=== PATIENT | male | born 1955 | race Caucasian/White ===

== ENCOUNTER 2016-09-07 11:45 | Emergency (ER) | payer MEDICARE ==
[~2016-09-07] VITALS: Wt 109.3 kg
[~2016-09-07 11:45] MED LIST: APRESOLINE25 MG PO; ARANESP0.04 MG/ML IJ; ATARAX,VISTARIL50 MG PO; B-12500 MC1 PO; CALCIUM 600600 M2 PO; CALCIUM ACETAT667 M2 PO; CALCIUM ACETATE PO; CALCIUM600 M2 PO; CARDIZEM120 MG PO; DILTIAZEM 24HR120 MG PO; DILTIAZEM HCL90 MG PO; DRISDOL50000 IU PO; FINASTERIDE5 MG PO; FLOMAX0.4 MG PO; FUROSEMIDE80 MG PO; HUMALOG100 U/ML SC; HUMULIN R100 U/ML; HUMULIN R100 U/ML SC; HYDRALAZINE HYD25 MG PO; HYDRALAZINE10 MG PO; HYDRALAZINE50 MG PO; HYDROCODONE BIT1 T11 PO; KEFLEX500 MG PO; KLOR-CON 1010 MEQ PO; LASIX40 MG PO; LASIX80 MG PO; LEVEMIR FLEX100 U/ML SC; LEVEMIR10 ML SC; LEVEMIR100 U/ML SC; LIDEX 0.05% CRE15 GM T; LIDEX0.05% T; LIQUACEL PO; METOPROLOL SUCC50 M1 PO; NEURONTIN400 MG PO; NOVOLIN R100 U/ML IJ; PENICILLIN VK500 MG PO; POTASSIUM; POTASSIUM GLUCO80 MG PO; PREDNICOT20 MG PO; PROTONIX40 MG PO; TOBRADEX 0.1%-0.5 ML OPH; VELTASSA16.8 GM PO; VIBRAMYCIN100 MG PO; VICODIN 5/500 505 MG PO; VISTARIL25 MG PO; VITAMIN B; VITAMIN B121000 MC2 SL; WARFARIN SODIUM1 MG PO; WATER PILL; XARELTO15 M1 PO; [UNRECOGNIZED DRUG - OTHER] PO; [UNRECOGNIZED DRUG - OTHER] PO; [UNRECOGNIZED DRUG - OTHER] SQ; [UNRECOGNIZED DRUG - REMARK]
[2016-09-07 11:56] VITALS: BP 137/54
[2016-09-07] MEDS ORDERED: ROBITUSSIN DM 105 ML PO (13:04)
== END 2016-09-07 14:03 | disposition home or self-care (01) ==
LOC: ED 11:45
DX: R05 Cough (principal); F17.200 Nicotine dependence, unspecified, uncomplicated; Z90.49 Acquired absence of other specified parts of digestive tract; Z98.890 Other specified postprocedural states; Z79.899 Other long term (current) drug therapy

== ENCOUNTER 2016-10-04 19:06 | Emergency (ER) | payer MEDICARE ==
[~2016-10-04] VITALS: Ht 177.8 cm; Wt 110.2 kg
--- NOTE | ~2016-10-04 | EKG ---
[place], [place] ELECTROCARDIOGRAM REPORT NAME: KATHIE YANEZ UNIT #: [id number] ROOM: DOCTOR: ERWIN RESENDIZ MD BIRTHDATE: [birth year] DOS: 10/04/2016 TIME: 1941 hours. Normal sinus rhythm at 83 beats per minute. The tracing is normal. No previous tracing is available for comparison. ERWIN RESENDIZ MD CM:EKGRPT:ELECTROCARDIOGRAM REPORT [id number] ERWIN RESENDIZ MD
[2016-10-04 19:06] VITALS: BP 126/56
[~2016-10-04 19:06] MED LIST changes: +ROBITUSSIN DM 105 ML PO
[2016-10-04 19:55] LABS: BASO % 0.2 % (0.0-1.0); EOS # 0.1 10*3/uL (0.0-0.4); EOS % 0.7 % (1.0-4.0); HEMATOCRIT 30.3 % (42.0-52.0); HEMOGLOBIN 9.9 g/dl (14.0-18.0); IG # 0.1 10*3/uL (0.0-0.1); LYMPH # 0.8 10*3/uL (1.3-4.4); LYMPH % 4.8 % (27.0-41.0); MEAN CELL VOLUME 96.8 fl (80.0-94.0); MEAN CORPUSCULAR HGB 31.6 pg (27.0-31.0); MEAN CORPUSCULAR HGB CONC 32.7 g/dl (33.0-37.0); MEAN PLATELET VOLUME 8.9 fl (9.6-12.3); MONO % 6.1 % (3.0-9.0); NEUT # 14.3 10*3/uL (2.3-7.9); NEUT % 87.5 % (47.0-73.0); PLATELET COUNT AUTOMATED 247 10*3/uL (130-400); RED BLOOD COUNT 3.13 10*6/uL (4.50-5.90); RED CELL DISTRI WIDTH 16.3 % (0-14.5); WHITE BLOOD COUNT 16.3 10*3/uL (4.8-10.8)
[2016-10-04 20:11] LABS: ALBUMIN 2.9 gm/dl (3.1-4.5); ALKALINE PHOSPHATASE 125 U/L (45-117); BILIRUBIN, TOTAL 0.3 mg/dl (0.2-1.0); BUN 88 mg/dl (7-24); C-REACTIVE PROTEIN 6.47 MG/DL (0-0.3); CARBON DIOXIDE 24 mmol/L (21-32); CHLORIDE 98 mmol/L (98-107); EST GLOM FILT AFRICAN AMERICAN 5 ml/min; GLUCOSE 163 mg/dL (65-99); MAGNESIUM 1.8 mg/dL (1.5-2.1); POTASSIUM 3.8 mmol/L (3.5-5.1); SGOT/AST 13 IU/L (3-35); SGPT/ALT 18 U/L (12-78); SODIUM 136 mmol/L (136-145); TOTAL PROTEIN 7.4 gm/dL (6.4-8.2)
[2016-10-04 20:19] LABS: TROPONIN I < 0.015 ng/ml (<0.045)
[2016-10-04 20:48] LABS: BILIRUBIN NEGATIVE (NEGATIVE); BLOOD 1+ (NEGATIVE); CLARITY CLOUDY (CLEAR); COLOR YELLOW (YELLOW); GLUCOSE 2+ (NEGATIVE); KETONE NEGATIVE (NEGATIVE); LEUKO ESTERASE 3+ (NEGATIVE); NITRITE NEGATIVE (NEGATIVE); PROTEIN 2+ (NEGATIVE); UROBILINOGEN 0.2 E.U./dl (0.2-1.0)
[2016-10-04 20:54] LABS: URINE REFLEX COMMENT YES (NO); WBC TNTC wbc/hpf (0-5)
[2016-10-04] MEDS ORDERED: AMINOPHYLLIN200 MG PO (22:33)
== END 2016-10-05 00:13 | disposition home or self-care (01) ==
LOC: ED 19:06
PROVIDERS: Emergency Medicine Emergency Medical Services
DX: R55 Syncope and collapse (principal); N39.0 Urinary tract infection, site not specified; R31.9 Hematuria, unspecified; I12.0 Hypertensive chronic kidney disease with stage 5 chronic kidney disease or end stage renal disease; N18.6 End stage renal disease; I48.91 Unspecified atrial fibrillation; E11.65 Type 2 diabetes mellitus with hyperglycemia; E66.9 Obesity, unspecified; F17.200 Nicotine dependence, unspecified, uncomplicated; Z68.39 Body mass index [BMI] 39.0-39.9, adult; Z90.49 Acquired absence of other specified parts of digestive tract; Z99.2 Dependence on renal dialysis; Z98.890 Other specified postprocedural states; Z79.899 Other long term (current) drug therapy

== ENCOUNTER 2016-10-07 08:19 | Inpatient (IN) | payer MEDICARE ==
[~2016-10-07] VITALS: Ht 177.8 cm; Wt 114.3 kg
--- NOTE | ~2016-10-07 | PROC NOTE ---
[place], [place] PROCEDURE NOTE NAME: KATHIE YANEZ UNIT #: [id number] ROOM: 530 DOCTOR: ROLAND PEREZ MD BIRTHDATE: [birth year] DOS: 10/12/2016 PREOPERATIVE DIAGNOSIS: Left perirectal abscess. POSTOPERATIVE DIAGNOSIS: Left perirectal abscess. PROCEDURE: Incision and drainage of left perirectal abscess. SURGEON: Dr. Roland Perez. FOOD SERVICE ATTENDANT: MS3. ANESTHESIA: MAC. INDICATIONS: This is a 60-year-old gentleman with a history of left perirectal abscess who was here for the above-mentioned procedure. The procedure and its complications were explained to the patient in detail. Complications that were discussed included but were not limited to, bleeding, infection and damage to underlying vital structures. He agreed to proceed. DESCRIPTION OF PROCEDURE: After identifying the patient, the patient was brought to the operating suite and laid in the supine position. After IV sedation was administered by the anesthesia team. The patient was placed in lithotomy position and a timeout procedure was called. The parts were then painted and draped in the usual sterile fashion. The patient had a small opening in the region of these abscess. With the help of a knife, the opening was incised and the abscess cavity was entered. A specimen of pus was sent for culture and sensitivity. Thereafter, the abscess cavity was irrigated with normal saline and packed with the help of half inch iodoform pack. A dressing was placed. The patient was then placed back in a supine position and brought back to the recovery room in stable fashion. There were no complications. Dr. Roland Perez, the attending surgeon, was present throughout the operating case. Roland Perez MD CM:PROCNOTE:PROCEDURE NOTE [id number] ROLAND PEREZ MD
--- NOTE | ~2016-10-07 | EKG ---
[place], [place] ELECTROCARDIOGRAM REPORT NAME: KATHIE YANEZ UNIT #: [id number] ROOM: [facility] DOCTOR: ERWIN RESENDIZ MD BIRTHDATE: [birth year] DOS: 10/07/2016 TIME: 0914 hours. FINDINGS: 1. Normal sinus rhythm at 97 beats per minute. 2. The tracing is normal. 3. No previous tracing is available for comparison. ERWIN RESENDIZ MD CM:EKGRPT:ELECTROCARDIOGRAM REPORT [id number] 05 ERWIN RESENDIZ MD
--- NOTE | ~2016-10-07 | CON ---
[place], [place] REPORT OF CONSULTATION NAME: KATHIE YANEZ UNIT #: [id number] ROOM: 530 DOCTOR: MICHAEL ALLISON MD BIRTHDATE: [birth year] DOS: 10/08/2016 NEPHROLOGY CONSULTATION REASON FOR CONSULTATION: Management of dialysis. HISTORY OF PRESENT ILLNESS: The patient is a 60-year-old male. He has past medical history of end-stage renal disease. He undergoes peritoneal dialysis. He has a history of diabetes and hypertension as well as what seems to be BPH. The patient presented to the hospital due to some vague abdominal discomfort and left sided rib pain. Apparently, he was felt to have a UTI and had noted urinary retention, a Rossi catheter was placed. He has had what seems like several urine cultures done over the past few days. He did have a CT scan, which revealed changes of his liver concerning for cirrhosis with some mild ascites and distended bladder with urinary retention. As noted a Rossi catheter had been placed and he was admitted to the hospital. He does feel a little bit better, but still is having pain. Apparently, this pain has started about a week ago. He has also had some issues with constipation. The patient states to me his fluid has been clear during his peritoneal dialysis. He states to me that he has had no issues doing that and actually brought his own supplies and was doing this on this own. It seems he undergoes 8 hours of cycle, but the fill volumes and settings are not quite clear. He was not able to describe them very well to me. He did also have what seems to be a mid day exchange. Again, he states that he has had no issues with peritoneal dialysis. He has a Rossi in place and has adequate urine. He currently denies shortness of breath, fevers, chills or night sweats. ALLERGIES: No known drug allergies. HOME MEDICATIONS: Included Eliquis, Aranesp, Cardizem, finasteride, Lasix, gabapentin, hydralazine, insulin, metoprolol, Protonix, Flomax, Veltassa. PAST MEDICAL HISTORY: 1. End-stage renal disease, on peritoneal dialysis. 2. PD catheter placement. 3. Benign prostatic hypertrophy. 4. Cirrhosis. 5. Back pain. 6. Hypertension. 7. Diabetes mellitus. 8. Obesity. 9. History of AV fistula. 10. Decompression of median nerve. 11. Foot surgery x 3. FAMILY HISTORY: Negative for chronic kidney disease, otherwise noncontributory. SOCIAL HISTORY: No current tobacco, alcohol or illicit drugs. REVIEW OF SYSTEMS: As per HPI, otherwise a 10-point review of systems was [place], [place] REPORT OF CONSULTATION NAME: KATHIE YANEZ UNIT #: [id number] ROOM: 530 DOCTOR: MICHAEL ALLISON MD BIRTHDATE: [birth year] reviewed and was negative. PHYSICAL EXAMINATION: VITAL SIGNS: Temperature 97.9, pulse 75, respiratory rate 18, blood pressure 118/52. GENERAL: He is alert, awake, oriented x 3, in no major distress. HEENT: Shows no JVD. Sclerae are anicteric. Mucous membranes are moist. Pharynx is clear. NECK: Supple. Trachea is midline. There is no neck lymphadenopathy. There is no thyromegaly. LUNGS: Fairly clear. No crackles, wheezing or rales. There is no tactile fremitus. He is not using accessory muscles of respiration. HEART: Normal S1, S2. No rub, thrill or gallop. ABDOMEN: Mildly distended. He did not have appreciable organomegaly, did not have appreciable rebound or tenderness particularly in the right and middle of his abdomen. When I pressed near his left ribcage and left abdomen, he had some mild tenderness noted. EXTREMITIES: Showed no edema. There are no clubbing or cyanosis. Distal pulses are 2+. SKIN: Showed no overt rash. There is no petechiae or purpura. Skin temperature was warm. NEUROLOGIC: He is awake, alert and following commands. His cranial nerves were intact. LABORATORY DATA: Reviewed. Hemoglobin 10.2, white count of 12.3, platelets of 287. BUN 65, creatinine 11, sodium 140, potassium 3.5, CO2 of 29, calcium 9.8, phosphorus 3.4, magnesium 2.4. IMPRESSION: 1. End-stage renal disease, on peritoneal dialysis. 2. Urinary retention with a questionable urinary tract infection. 3. Diabetes mellitus. 4. Benign prostatic hypertrophy. 5. Constipation. 6. Leukocytosis. PLAN: 1. The patient is to continue his normal peritoneal dialysis prescription. He has his own supply and his own machine and exchanges are being done mid day by himself and his family. 2. Dose medications for peritoneal dialysis. 3. Would discontinue the Rossi catheter and try voiding trials. We will consider a Urology consult. 4. Replace electrolytes as needed. 5. I highly doubt the patient has peritonitis. I will attempt to obtain fluid from his peritoneum and send for culture to be on the safe side, but this seems highly unlikely peritonitis. Thank you for this consultation. We will follow with you. [place], [place] REPORT OF CONSULTATION NAME: RENATAKATHIE Julio UNIT #: [id number] ROOM: [facility] DOCTOR: ESTEFANY SAHA,MICHAEL Quintero BIRTHDATE: [birth year] MICHAEL ALLISON MD CM:CONSTR:REPORT OF CONSULTATION 1524 10/09/16 0657 interface
--- NOTE | ~2016-10-07 | PR ---
[place], [place] PROGRESS NOTE NAME: KATHIE YANEZ UNIT #: [id number] ROOM: 530 DOCTOR: MICHAEL ALLISON MD BIRTHDATE: [birth year] DOS: 10/09/2016 NEPHROLOGY FOLLOWUP NOTE SUBJECTIVE: The patient was seen and examined. He is awake and alert, seems to be a little bit better today. He is still complaining of left-sided rib pain. He denies abdominal pain. He states his peritoneal fluid is clear. He states PD is going well. PHYSICAL EXAMINATION: VITAL SIGNS: Temperature 97.9, pulse 78, respiratory rate 20, blood pressure 124/46. HEENT: Shows no JVD. LUNGS: Fairly clear. HEART: Normal S1, S2. No rub, thrill or gallop. ABDOMEN: Soft and nontender. There is no organomegaly. EXTREMITIES: Showed no edema. LABORATORY DATA: Hemoglobin 10.3, white count of 12.4, platelet count of 275. Sodium 136, potassium 4.2, BUN 57, creatinine 10.7, calcium of 10.1. IMPRESSION: 1. End-stage renal disease on peritoneal dialysis. The patient should continue his normal outpatient prescription which he is performing with his own supply as well in the hospital. Dose medications for peritoneal dialysis. 2. Urinary retention with a questionable urinary tract infection. The patient should have his Rossi catheter removed and voiding trial should be attempted, consider Urology consultation. 3. Leukocytosis. This is stable. Follow cultures. Cultures from his PD fluid was ordered. This seems extremely unlikely to be a peritonitis. 4. Ongoing left-sided rib pain. Continue supportive care. 5. Constipation with rectal pain. I was confronted in regards to the CT scan with IV contrast by a number of personnel today. I stated that the patient does still make urine and has some residual renal function and this would be a risk to cause potential harm to that. I also explained this to the patient and his , stated ultimately that if this is the test that was needed that he would have to understand that situation. It seems for now that has been elected to avoid IV contrast at this time. [place], [place] PROGRESS NOTE NAME: KATHIE YANEZ UNIT #: [id number] ROOM: 530 DOCTOR: MICHAEL ALLISON MD: [birth year] MICHAEL ALLISON MD CM:PNTRANS [id number] MICHAEL ALLISON MD 10/10/16 0409 interface
[~2016-10-07 08:19] MED LIST changes: +AMINOPHYLLIN200 MG PO
[2016-10-07 08:27] VITALS: BP 138/48
[2016-10-07 09:11] LABS: BASO % 0.3 % (0.0-1.0); EOS # 0.3 10*3/uL (0.0-0.4); EOS % 2.2 % (1.0-4.0); HEMATOCRIT 30.3 % (42.0-52.0); HEMOGLOBIN 9.6 g/dl (14.0-18.0); IG # 0.1 10*3/uL (0.0-0.1); LYMPH # 0.8 10*3/uL (1.3-4.4); LYMPH % 5.9 % (27.0-41.0); MEAN CELL VOLUME 98.7 fl (80.0-94.0); MEAN CORPUSCULAR HGB 31.3 pg (27.0-31.0); MEAN CORPUSCULAR HGB CONC 31.7 g/dl (33.0-37.0); MEAN PLATELET VOLUME 8.8 fl (9.6-12.3); MONO % 7.2 % (3.0-9.0); NEUT # 11.6 10*3/uL (2.3-7.9); NEUT % 83.8 % (47.0-73.0); PLATELET COUNT AUTOMATED 244 10*3/uL (130-400); RED BLOOD COUNT 3.07 10*6/uL (4.50-5.90); RED CELL DISTRI WIDTH 16.5 % (0-14.5); WHITE BLOOD COUNT 13.8 10*3/uL (4.8-10.8)
[2016-10-07 09:22] LABS: INTERNATIONAL NORM RATIO 1.2 (2.0-3.5); PROTHROMBIN TIME 12.6 SECONDS (9.0-12.4)
[2016-10-07 09:26] LABS: ALBUMIN 2.7 gm/dl (3.1-4.5); ALKALINE PHOSPHATASE 107 U/L (45-117); BILIRUBIN, TOTAL 0.3 mg/dl (0.2-1.0); BUN 70 mg/dl (7-24); CARBON DIOXIDE 28 mmol/L (21-32); CHLORIDE 98 mmol/L (98-107); CKMB 1.5 ng/ml (0.5-3.6); CPK 29 U/L (39-308); EST GLOM FILT AFRICAN AMERICAN 6 ml/min; GLUCOSE 110 mg/dL (65-99); MAGNESIUM 2.1 mg/dL (1.5-2.1); POTASSIUM 3.3 mmol/L (3.5-5.1); SGOT/AST 12 IU/L (3-35); SGPT/ALT 18 U/L (12-78); SODIUM 139 mmol/L (136-145); TOTAL PROTEIN 7.3 gm/dL (6.4-8.2)
[2016-10-07 09:35] LABS: TROPONIN I < 0.015 ng/ml (<0.045)
[2016-10-07 10:37] VITALS: BP 147/74
[2016-10-07 11:41] VITALS: BP 134/70
[2016-10-07 11:51] LABS: BILIRUBIN NEGATIVE (NEGATIVE); BLOOD 1+ (NEGATIVE); CLARITY SL CLOUDY (CLEAR); COLOR YELLOW (YELLOW); GLUCOSE 2+ (NEGATIVE); KETONE NEGATIVE (NEGATIVE); LEUKO ESTERASE 3+ (NEGATIVE); NITRITE NEGATIVE (NEGATIVE); PH 6.5 (5.0-9.0); PROTEIN 2+ (NEGATIVE); UROBILINOGEN 0.2 E.U./dl (0.2-1.0)
[2016-10-07 12:21] LABS: BACTERIA 2+; URINE REFLEX COMMENT YES (NO); WBC TNTC wbc/hpf (0-5)
[2016-10-07 14:42] VITALS: BP 135/79
[2016-10-07] MEDS ORDERED: LOPRESSOR50 M1 PO (14:47)
[2016-10-07] MEDS ORDERED: Lasix80 MG PO (14:57)
[2016-10-07] MEDS ORDERED: CARDIZEM CD360 MG PO (14:58)
[2016-10-07] MEDS ORDERED: HUMALOG100 U/ML SC ×3 (15:01→15:02)
[2016-10-07] MEDS ORDERED: ELIQUIS5 M1 PO (15:16)
[2016-10-07] MEDS ORDERED: AMINOPHYLLIN200 MG PO (15:21)
[2016-10-07 15:40] VITALS: BP 158/74
[2016-10-07 16:00] VITALS: BP 158/74
[2016-10-08 06:48] LABS: BASO # 0.1 10*3/uL (0.0-0.1); BASO % 0.4 % (0.0-1.0); EOS # 0.5 10*3/uL (0.0-0.4); EOS % 3.6 % (1.0-4.0); HEMATOCRIT 31.9 % (42.0-52.0); HEMOGLOBIN 10.2 g/dl (14.0-18.0); IG # 0.1 10*3/uL (0.0-0.1); LYMPH # 0.8 10*3/uL (1.3-4.4); LYMPH % 6.3 % (27.0-41.0); MEAN CELL VOLUME 99.7 fl (80.0-94.0); MEAN CORPUSCULAR HGB 31.9 pg (27.0-31.0); MEAN PLATELET VOLUME 9.4 fl (9.6-12.3); MONO % 7.9 % (3.0-9.0); NEUT % 81.4 % (47.0-73.0); PLATELET COUNT AUTOMATED 287 10*3/uL (130-400); RED CELL DISTRI WIDTH 16.2 % (0-14.5); WHITE BLOOD COUNT 12.3 10*3/uL (4.8-10.8)
[2016-10-08 07:34] LABS: MAGNESIUM 2.4 mg/dL (1.5-2.1); PHOSPHOROUS 3.4 mg/dL (2.5-4.9); POTASSIUM 3.5 mmol/L (3.5-5.1)
[2016-10-08 07:44] LABS: THYROID STIM HORMONE (HS) 3.16 uIU/ml (0.358-4.75)
[2016-10-08 07:57] LABS: HEMOGLOBIN A1c 7.3 % (4.8-5.6)
[2016-10-08 08:00] VITALS: BP 102/50
[2016-10-08 08:46] LABS: FOLIC ACID 9.99 ng/mL (>5.38)
[2016-10-08 12:00] VITALS: BP 118/52
[2016-10-08 20:00] VITALS: BP 152/59
[2016-10-09] VITALS: BP 137/51; BP 153/63
[2016-10-09 08:00] VITALS: BP 100/48
[2016-10-09 08:01] LABS: BASO # 0.1 10*3/uL (0.0-0.1); BASO % 0.5 % (0.0-1.0); EOS # 0.6 10*3/uL (0.0-0.4); EOS % 5.1 % (1.0-4.0); HEMATOCRIT 32.8 % (42.0-52.0); HEMOGLOBIN 10.3 g/dl (14.0-18.0); IG # 0.1 10*3/uL (0.0-0.1); LYMPH # 0.9 10*3/uL (1.3-4.4); LYMPH % 7.5 % (27.0-41.0); MEAN CELL VOLUME 99.1 fl (80.0-94.0); MEAN CORPUSCULAR HGB 31.1 pg (27.0-31.0); MEAN CORPUSCULAR HGB CONC 31.4 g/dl (33.0-37.0); MEAN PLATELET VOLUME 9.1 fl (9.6-12.3); MONO % 7.7 % (3.0-9.0); NEUT # 9.8 10*3/uL (2.3-7.9); NEUT % 78.7 % (47.0-73.0); PLATELET COUNT AUTOMATED 275 10*3/uL (130-400); RED BLOOD COUNT 3.31 10*6/uL (4.50-5.90); RED CELL DISTRI WIDTH 16.2 % (0-14.5); WHITE BLOOD COUNT 12.4 10*3/uL (4.8-10.8)
[2016-10-09 08:14] LABS: POTASSIUM 4.2 mmol/L (3.5-5.1)
[2016-10-09 12:00] VITALS: BP 124/46
[2016-10-09 16:00] VITALS: BP 104/85
[2016-10-09 20:00] VITALS: BP 115/50
[2016-10-10] VITALS: BP 133/59
[2016-10-10 04:00] VITALS: BP 119/44
[2016-10-10 06:28] LABS: BASO # 0.1 10*3/uL (0.0-0.1); BASO % 0.6 % (0.0-1.0); EOS # 0.6 10*3/uL (0.0-0.4); EOS % 5.6 % (1.0-4.0); HEMATOCRIT 30.8 % (42.0-52.0); HEMOGLOBIN 9.8 g/dl (14.0-18.0); IG # 0.1 10*3/uL (0.0-0.1); LYMPH # 0.7 10*3/uL (1.3-4.4); LYMPH % 7.2 % (27.0-41.0); MEAN CORPUSCULAR HGB 31.5 pg (27.0-31.0); MEAN CORPUSCULAR HGB CONC 31.8 g/dl (33.0-37.0); MEAN PLATELET VOLUME 9.6 fl (9.6-12.3); MONO # 0.9 10*3/uL (0.1-1.0); MONO % 8.7 % (3.0-9.0); NEUT # 7.8 10*3/uL (2.3-7.9); NEUT % 77.2 % (47.0-73.0); PLATELET COUNT AUTOMATED 265 10*3/uL (130-400); RED BLOOD COUNT 3.11 10*6/uL (4.50-5.90); RED CELL DISTRI WIDTH 15.9 % (0-14.5); WHITE BLOOD COUNT 10.1 10*3/uL (4.8-10.8)
[2016-10-10 06:50] LABS: POTASSIUM 3.7 mmol/L (3.5-5.1)
[2016-10-10 08:00] VITALS: BP 122/58
[2016-10-10 12:00] VITALS: BP 110/46
[2016-10-10 16:00] VITALS: BP 124/36
[2016-10-10 20:00] VITALS: BP 148/55
[2016-10-11] VITALS: BP 122/49
[2016-10-11 06:40] LABS: BASO # 0.1 10*3/uL (0.0-0.1); BASO % 0.6 % (0.0-1.0); EOS # 0.5 10*3/uL (0.0-0.4); EOS % 4.6 % (1.0-4.0); HEMATOCRIT 30.1 % (42.0-52.0); HEMOGLOBIN 9.7 g/dl (14.0-18.0); IG # 0.1 10*3/uL (0.0-0.1); LYMPH # 0.8 10*3/uL (1.3-4.4); LYMPH % 7.5 % (27.0-41.0); MEAN CORPUSCULAR HGB 31.6 pg (27.0-31.0); MEAN CORPUSCULAR HGB CONC 32.2 g/dl (33.0-37.0); MEAN PLATELET VOLUME 9.5 fl (9.6-12.3); MONO # 0.8 10*3/uL (0.1-1.0); MONO % 7.9 % (3.0-9.0); NEUT # 8.3 10*3/uL (2.3-7.9); NEUT % 78.5 % (47.0-73.0); PLATELET COUNT AUTOMATED 262 10*3/uL (130-400); RED BLOOD COUNT 3.07 10*6/uL (4.50-5.90); RED CELL DISTRI WIDTH 15.9 % (0-14.5); WHITE BLOOD COUNT 10.6 10*3/uL (4.8-10.8)
[2016-10-11 07:52] LABS: POTASSIUM 3.4 mmol/L (3.5-5.1)
[2016-10-11 08:00] VITALS: BP 132/60
[2016-10-11 12:00] VITALS: BP 112/40
[2016-10-11 16:00] VITALS: BP 135/58
[2016-10-11 20:00] VITALS: BP 120/50
[2016-10-12] VITALS (10 sets, daily range): BP systolic 116–156; BP diastolic 44–112
[2016-10-12 06:15] LABS: BASO # 0.1 10*3/uL (0.0-0.1); BASO % 0.7 % (0.0-1.0); EOS # 0.5 10*3/uL (0.0-0.4); EOS % 5.3 % (1.0-4.0); HEMATOCRIT 30.3 % (42.0-52.0); HEMOGLOBIN 9.7 g/dl (14.0-18.0); IG # 0.1 10*3/uL (0.0-0.1); LYMPH # 0.9 10*3/uL (1.3-4.4); LYMPH % 10.8 % (27.0-41.0); MEAN CELL VOLUME 98.1 fl (80.0-94.0); MEAN CORPUSCULAR HGB 31.4 pg (27.0-31.0); MEAN PLATELET VOLUME 8.9 fl (9.6-12.3); MONO # 0.9 10*3/uL (0.1-1.0); MONO % 10.9 % (3.0-9.0); NEUT # 6.1 10*3/uL (2.3-7.9); PLATELET COUNT AUTOMATED 271 10*3/uL (130-400); RED BLOOD COUNT 3.09 10*6/uL (4.50-5.90); RED CELL DISTRI WIDTH 15.6 % (0-14.5); WHITE BLOOD COUNT 8.5 10*3/uL (4.8-10.8)
[2016-10-12 06:39] LABS: ALBUMIN 2.5 gm/dl (3.1-4.5); BILIRUBIN, TOTAL 0.2 mg/dl (0.2-1.0)
[2016-10-13 00:16] VITALS: BP 136/54
[2016-10-13 06:41] LABS: BASO # 0.1 10*3/uL (0.0-0.1); BASO % 0.6 % (0.0-1.0); EOS # 0.3 10*3/uL (0.0-0.4); EOS % 4.3 % (1.0-4.0); HEMATOCRIT 29.7 % (42.0-52.0); HEMOGLOBIN 9.5 g/dl (14.0-18.0); IG # 0.1 10*3/uL (0.0-0.1); LYMPH % 12.5 % (27.0-41.0); MEAN CORPUSCULAR HGB 31.7 pg (27.0-31.0); MEAN PLATELET VOLUME 9.5 fl (9.6-12.3); MONO # 0.9 10*3/uL (0.1-1.0); NEUT # 5.5 10*3/uL (2.3-7.9); NEUT % 70.3 % (47.0-73.0); PLATELET COUNT AUTOMATED 270 10*3/uL (130-400); RED CELL DISTRI WIDTH 15.9 % (0-14.5); WHITE BLOOD COUNT 7.9 10*3/uL (4.8-10.8)
[2016-10-13 06:57] LABS: ALBUMIN 2.3 gm/dl (3.1-4.5); BILIRUBIN, TOTAL 0.2 mg/dl (0.2-1.0); POTASSIUM 4.1 mmol/L (3.5-5.1); TOTAL PROTEIN 6.9 gm/dL (6.4-8.2)
[2016-10-13 08:00] VITALS: BP 168/98
[2016-10-13 12:00] VITALS: BP 146/88
[2016-10-13 16:00] VITALS: BP 137/59
[2016-10-13 20:00] VITALS: BP 120/72
[2016-10-13 21:53] LABS: POTASSIUM 4.8 mmol/L (3.5-5.1)
[2016-10-14 00:46] VITALS: BP 116/72
[2016-10-14 07:11] LABS: ALBUMIN 2.4 gm/dl (3.1-4.5); BILIRUBIN, TOTAL 0.3 mg/dl (0.2-1.0); TOTAL PROTEIN 6.9 gm/dL (6.4-8.2)
[2016-10-14 07:14] LABS: POTASSIUM 3.8 mmol/L (3.5-5.1)
[2016-10-14 08:00] VITALS: BP 125/52
[2016-10-14 12:00] VITALS: BP 134/62
[2016-10-14] MEDS ORDERED: REMEDY WITH OLI1 PAS T (12:29)
[2016-10-14] MEDS ORDERED: LEVEMIR10 ML SC (12:29)
[2016-10-14] MEDS ORDERED: BACTRIM 400 MG-1 TAB PO ×2 (12:47→12:50)
[2016-10-14] MEDS ORDERED: KEFLEX500 M1 PO ×2 (12:47→12:50)
== END 2016-10-14 13:53 | disposition home or self-care (01) | DRG 853 ==
LOC: ED 08:19 → 5E 12:38 → EDHOLD 12:38 → 5E 14:02
PROVIDERS: Emergency Medicine; Hospitalist; Internal Medicine; Internal Medicine Hospice and Palliative Medicine
PROC: 3E1M39Z Irrigation of Peritoneal Cavity using Dialysate, Percutaneous Approach (ICD-10-PCS; principal; 2016-10-12)
PROC: 0D9P0ZZ Drainage of Rectum, Open Approach (ICD-10-PCS; 2016-10-12)
DX: A41.9 Sepsis, unspecified organism (principal); N18.6 End stage renal disease; E43 Unspecified severe protein-calorie malnutrition; I12.0 Hypertensive chronic kidney disease with stage 5 chronic kidney disease or end stage renal disease; N39.0 Urinary tract infection, site not specified; L03.317 Cellulitis of buttock; K61.1 Rectal abscess; Z99.2 Dependence on renal dialysis; E11.22 Type 2 diabetes mellitus with diabetic chronic kidney disease; E11.65 Type 2 diabetes mellitus with hyperglycemia; N40.0 Benign prostatic hyperplasia without lower urinary tract symptoms; K74.60 Unspecified cirrhosis of liver; E66.9 Obesity, unspecified; Z68.35 Body mass index [BMI] 35.0-35.9, adult; K59.00 Constipation, unspecified; D53.9 Nutritional anemia, unspecified; E87.6 Hypokalemia; R79.82 Elevated C-reactive protein (CRP); M47.9 Spondylosis, unspecified; M43.16 Spondylolisthesis, lumbar region; Z80.1 Family history of malignant neoplasm of trachea, bronchus and lung

== ENCOUNTER → 2016-11-01 | Outpatient (CLI) | payer MEDICARE ==
[~2016-11-01] MED LIST changes: +BACTRIM 400 MG-1 TAB PO; +CARDIZEM CD360 MG PO; +ELIQUIS5 M1 PO; +KEFLEX500 M1 PO; +LOPRESSOR50 M1 PO; +Lasix80 MG PO; +REMEDY WITH OLI1 PAS T
[2016-11-01 09:09] LABS: HEMOGLOBIN A1c 7.9 % (4.8-5.6)
[2016-11-01 09:18] LABS: ALBUMIN 2.8 gm/dl (3.1-4.5); POTASSIUM 4.3 mmol/L (3.5-5.1)
[2016-11-01 09:23] LABS: THYROID STIM HORMONE (HS) 4.14 uIU/ml (0.358-4.75)
== END | disposition home or self-care (01) ==
LOC: LAB 08:32
PROVIDERS: Internal Medicine
DX: Z12.5 Encounter for screening for malignant neoplasm of prostate (principal); E55.9 Vitamin D deficiency, unspecified; I10 Essential (primary) hypertension; E10.65 Type 1 diabetes mellitus with hyperglycemia; N40.0 Benign prostatic hyperplasia without lower urinary tract symptoms; E04.9 Nontoxic goiter, unspecified; E78.5 Hyperlipidemia, unspecified

== ENCOUNTER 2016-12-15 13:09 | Inpatient (IN) | payer MEDICARE ==
[~2016-12-15] VITALS: Ht 177.8 cm; Wt 113.7 kg
[2016-12-15 13:42] VITALS: BP 117/39
[2016-12-15] MEDS ORDERED: RENVELA800 MG PO (13:46)
[2016-12-15 14:01] LABS: BILIRUBIN NEGATIVE (NEGATIVE); BLOOD 2+ (NEGATIVE); CLARITY SL CLOUDY (CLEAR); COLOR YELLOW (YELLOW); GLUCOSE 2+ (NEGATIVE); KETONE NEGATIVE (NEGATIVE); LEUKO ESTERASE NEGATIVE (NEGATIVE); NITRITE NEGATIVE (NEGATIVE); PH 6.5 (5.0-9.0); PROTEIN 2+ (NEGATIVE); SPECIFIC GRAVITY <= 1.005 (1.005-1.030); UROBILINOGEN 0.2 E.U./dl (0.2-1.0)
[2016-12-15 14:33] LABS: BACTERIA TRACE; RBC 21-30 rbc/hpf (0-2); URINE REFLEX COMMENT YES (NO)
[2016-12-15 14:53] LABS: BASO % 0.2 % (0.0-1.0); HEMATOCRIT 29.5 % (42.0-52.0); HEMOGLOBIN 9.2 g/dl (14.0-18.0); IG # 0.1 10*3/uL (0.0-0.1); LYMPH # 0.4 10*3/uL (1.3-4.4); LYMPH % 3.3 % (27.0-41.0); MEAN CORPUSCULAR HGB 31.2 pg (27.0-31.0); MEAN CORPUSCULAR HGB CONC 31.2 g/dl (33.0-37.0); MEAN PLATELET VOLUME 9.3 fl (9.6-12.3); MONO # 0.8 10*3/uL (0.1-1.0); NEUT # 11.6 10*3/uL (2.3-7.9); NEUT % 89.9 % (47.0-73.0); PLATELET COUNT AUTOMATED 189 10*3/uL (130-400); RED BLOOD COUNT 2.95 10*6/uL (4.50-5.90); RED CELL DISTRI WIDTH 16.7 % (0-14.5); WHITE BLOOD COUNT 12.9 10*3/uL (4.8-10.8)
[2016-12-15 15:10] LABS: ALBUMIN 2.9 gm/dl (3.1-4.5); ALKALINE PHOSPHATASE 109 U/L (45-117); BILIRUBIN, TOTAL 0.4 mg/dl (0.2-1.0); BUN 73 mg/dl (7-24); CARBON DIOXIDE 25 mmol/L (21-32); CHLORIDE 96 mmol/L (98-107); EST GLOM FILT AFRICAN AMERICAN 5 ml/min; GLUCOSE 132 mg/dL (65-99); POTASSIUM 4.7 mmol/L (3.5-5.1); SGOT/AST 10 IU/L (3-35); SGPT/ALT 16 U/L (12-78); SODIUM 136 mmol/L (136-145); TOTAL PROTEIN 7.4 gm/dL (6.4-8.2)
[2016-12-15 15:12] LABS: TROPONIN I < 0.015 ng/ml (<0.045)
[2016-12-15 16:50] LABS: LA>2 REFLEX 2 HR DRAW NOW
[2016-12-15 17:00] VITALS: BP 142/80
[2016-12-15 18:00] VITALS: BP 138/78
[2016-12-15 19:00] VITALS: BP 140/78
[2016-12-15 20:00] VITALS: BP 145/58
[2016-12-15 20:10] VITALS: BP 145/58
[2016-12-16] VITALS: BP 133/54
[2016-12-16 06:59] LABS: BASO % 0.3 % (0.0-1.0); EOS % 0.1 % (1.0-4.0); HEMATOCRIT 27.2 % (42.0-52.0); HEMOGLOBIN 8.5 g/dl (14.0-18.0); IG # 0.1 10*3/uL (0.0-0.1); LYMPH # 0.5 10*3/uL (1.3-4.4); LYMPH % 4.6 % (27.0-41.0); MEAN CELL VOLUME 99.6 fl (80.0-94.0); MEAN CORPUSCULAR HGB 31.1 pg (27.0-31.0); MEAN CORPUSCULAR HGB CONC 31.3 g/dl (33.0-37.0); MEAN PLATELET VOLUME 9.8 fl (9.6-12.3); MONO # 0.8 10*3/uL (0.1-1.0); MONO % 7.1 % (3.0-9.0); NEUT # 9.2 10*3/uL (2.3-7.9); NEUT % 87.4 % (47.0-73.0); PLATELET COUNT AUTOMATED 173 10*3/uL (130-400); RED BLOOD COUNT 2.73 10*6/uL (4.50-5.90); RED CELL DISTRI WIDTH 16.5 % (0-14.5); WHITE BLOOD COUNT 10.5 10*3/uL (4.8-10.8)
[2016-12-16 07:25] LABS: MAGNESIUM 1.7 mg/dL (1.5-2.1); PHOSPHOROUS 4.9 mg/dL (2.5-4.9); POTASSIUM 4.6 mmol/L (3.5-5.1)
[2016-12-16 07:26] LABS: INTERNATIONAL NORM RATIO 1.2 (2.0-3.5); PROTHROMBIN TIME 13.4 SECONDS (9.0-12.4)
[2016-12-16 07:30] LABS: HEMOGLOBIN A1c 6.3 % (4.8-5.6)
[2016-12-16 08:00] VITALS: BP 141/89
[2016-12-16 08:04] LABS: FOLIC ACID 13.77 ng/mL (>5.38)
[2016-12-16 12:00] VITALS: BP 112/45
== END 2016-12-16 14:00 | disposition home or self-care (01) | DRG 871 ==
LOC: ED 13:09 → 5E 17:34 → EDHOLD 17:34 → 5E 18:28
PROVIDERS: Emergency Medicine; Internal Medicine; Nurse Practitioner Family
DX: A41.9 Sepsis, unspecified organism (principal); E43 Unspecified severe protein-calorie malnutrition; E87.2 Acidosis; I12.0 Hypertensive chronic kidney disease with stage 5 chronic kidney disease or end stage renal disease; I48.0 Paroxysmal atrial fibrillation; N18.6 End stage renal disease; E11.22 Type 2 diabetes mellitus with diabetic chronic kidney disease; N40.0 Benign prostatic hyperplasia without lower urinary tract symptoms; K52.9 Noninfective gastroenteritis and colitis, unspecified; D53.9 Nutritional anemia, unspecified; M47.896 Other spondylosis, lumbar region; Z80.1 Family history of malignant neoplasm of trachea, bronchus and lung; Z82.49 Family history of ischemic heart disease and other diseases of the circulatory system; Z79.1 Long term (current) use of non-steroidal anti-inflammatories (NSAID); Z99.2 Dependence on renal dialysis; Z79.4 Long term (current) use of insulin; Z68.35 Body mass index [BMI] 35.0-35.9, adult; Z79.899 Other long term (current) drug therapy

== ENCOUNTER → 2016-12-23 | Day surgery (SDC) | payer MEDICARE ==
[~2016-12-23] VITALS: Ht 177.8 cm; Wt 115.7 kg
[~2016-12-23] MED LIST changes: +RENVELA800 MG PO
--- NOTE | ~2016-12-23 | O ---
[place], [place] OPERATIVE NOTE NAME: KATHIE YANEZ UNIT #: [id number] ROOM: DOCTOR: ELVIN DANGELO MD BIRTHDATE: [birth year] DOS: PROCEDURE #1: HISTORY OF PRESENT ILLNESS: A 61-year-old patient who presented with chief complaint of guaiac positivity. PAST MEDICAL HISTORY: Chronic renal failure, on peritoneal dialysis, hypertension, obesity. PAST SURGICAL HISTORY: Appendectomy, vasectomy, right toe amputation, carpal tunnel. FAMILY HISTORY: Noncontributory. ALLERGIES: To no known medication. SOCIAL HISTORY: Nonsmoker and social alcohol consumer. PROCEDURE: Today's procedure as part of investigation is panendoscopy and colonoscopy. PREMEDICATION: Versed and Diprivan. SCOPE: Olympus forward-viewing gastroscope Q10 video. REPORT: After putting the patient in the left lateral position and after application of lubricant to the scope, the scope was introduced. Thereafter, under direct visualization, I advanced through the length of esophagus without difficulty. A 2 cm hiatal hernia was then appreciated. Gastric pouch was entered. Gastritis was seen. Antrum was biopsied. Duodenal bulb, second and third part are within normal limit. The patient was gradually extubated and tolerated the procedure well. IMPRESSION: Small hiatal hernia, 2 cm, gastritis. PLAN AND DISCUSSION: The patient on multiple medications, among which has been Protonix. We are going to continue with Protonix as well as the patient has been on Eliquis and other medications reviewed. We will proceed with all medication except Eliquis for the next 2 days. PROCEDURE #2: PREOPERATIVE INDICATIONS: The patient has presented with anemia, guaiac positivity renal failure, peritoneal dialysis dependency. PROCEDURE: Today's procedure as part of investigation is colonoscopy. PREMEDICATION: Versed and Diprivan. [place], [place] OPERATIVE NOTE NAME: KATHIE YANEZ UNIT #: [id number] ROOM: DOCTOR: ELVIN DANGELO MD BIRTHDATE: [birth year] SCOPE: Olympus folding colonoscope 10L video. REPORT: After putting the patient in the left lateral position and after application of lubricant to rectal pouch and digital examination, scope was introduced. Thereafter, under direct visualization, I advanced through the length of colon without difficulty. Base of cecum contained solid stool, difficult to assess; however, three polypoid lesion relatively large at hepatic flexure with snare was polypectomized, than others polypoid lesion at the sigmoid colon with snare with polypectomy and samples recovered. The patient tolerated the procedure well. IMPRESSION: Multiple colonic polyp, status post snare polypectomy x 4 at the hepatic flexure and sigmoid colon. PLAN AND DISCUSSION: The patient had some retained stool in the cecum area, it is difficult to assess. This was solid particles. If remains concern, we are going to do completion barium in future to definitively define the base of cecum pathology. The patient on peritoneal dialysis is going to continue, Eliquis is not going to be started till next 3 days to prevent bleeding from polypectomy site and clinical reassessment as outpatient. ELVIN DANGELO MD CM:OPRECORD:OPERATIVE NOTE [id number] ELVIN DANGELO MD 12/23/16 1541 interface
[2016-12-23 10:45] VITALS: BP 135/51
[2016-12-23 12:35] VITALS: BP 131/65
[2016-12-23 12:50] VITALS: BP 129/70
[2016-12-23 13:10] VITALS: BP 132/73
== END | disposition home or self-care (01) ==
LOC: SDC 12-20 10:15
DX: D12.5 Benign neoplasm of sigmoid colon (principal); D12.3 Benign neoplasm of transverse colon; D64.9 Anemia, unspecified; K44.9 Diaphragmatic hernia without obstruction or gangrene; K29.50 Unspecified chronic gastritis without bleeding; E66.9 Obesity, unspecified; Z98.890 Other specified postprocedural states; Z79.899 Other long term (current) drug therapy; Z79.4 Long term (current) use of insulin; K21.9 Gastro-esophageal reflux disease without esophagitis; Z99.2 Dependence on renal dialysis; Z82.49 Family history of ischemic heart disease and other diseases of the circulatory system; Z80.1 Family history of malignant neoplasm of trachea, bronchus and lung; Z83.3 Family history of diabetes mellitus; Z68.36 Body mass index [BMI] 36.0-36.9, adult; E11.22 Type 2 diabetes mellitus with diabetic chronic kidney disease; I13.2 Hypertensive heart and chronic kidney disease with heart failure and with stage 5 chronic kidney disease, or end stage renal disease; N18.6 End stage renal disease; I50.9 Heart failure, unspecified; Z90.49 Acquired absence of other specified parts of digestive tract

== ENCOUNTER 2017-01-14 23:17 | Emergency (ER) | payer MEDICARE ==
[~2017-01-14] VITALS: Ht 177.8 cm; Wt 115.7 kg
[2017-01-14 23:24] VITALS: BP 138/42
== END 2017-01-15 02:18 | disposition home or self-care (01) ==
LOC: ED 23:17
DX: T38.3X1A Poisoning by insulin and oral hypoglycemic [antidiabetic] drugs, accidental (unintentional), initial encounter (principal); Y92.9 Unspecified place or not applicable; Z79.899 Other long term (current) drug therapy

== ENCOUNTER 2017-01-21 14:57 | Emergency (ER) | payer MEDICARE ==
[~2017-01-21] VITALS: Wt 117.9 kg
[2017-01-21 15:35] LABS: BASO % 0.4 % (0.0-1.0); EOS # 0.1 10*3/uL (0.0-0.4); EOS % 1.1 % (1.0-4.0); HEMATOCRIT 35.6 % (42.0-52.0); HEMOGLOBIN 11.3 g/dl (14.0-18.0); LYMPH # 0.9 10*3/uL (1.3-4.4); LYMPH % 9.2 % (27.0-41.0); MEAN CELL VOLUME 96.7 fl (80.0-94.0); MEAN CORPUSCULAR HGB 30.7 pg (27.0-31.0); MEAN CORPUSCULAR HGB CONC 31.7 g/dl (33.0-37.0); MEAN PLATELET VOLUME 8.6 fl (9.6-12.3); MONO # 0.9 10*3/uL (0.1-1.0); MONO % 9.2 % (3.0-9.0); NEUT # 7.4 10*3/uL (2.3-7.9); NEUT % 79.8 % (47.0-73.0); PLATELET COUNT AUTOMATED 238 10*3/uL (130-400); RED BLOOD COUNT 3.68 10*6/uL (4.50-5.90); RED CELL DISTRI WIDTH 15.6 % (0-14.5); WHITE BLOOD COUNT 9.3 10*3/uL (4.8-10.8)
[2017-01-21 15:44] LABS: ACT PARTIAL THROMBO TIME 39.9 SECONDS (20.8-31.5); INTERNATIONAL NORM RATIO 1.2 (2.0-3.5)
[2017-01-21 15:54] LABS: ALBUMIN 2.7 gm/dl (3.1-4.5); ALKALINE PHOSPHATASE 140 U/L (45-117); BUN 69 mg/dl (7-24); CHLORIDE 95 mmol/L (98-107); MAGNESIUM 1.8 mg/dL (1.5-2.1); POTASSIUM 4.3 mmol/L (3.5-5.1); SGOT/AST 12 IU/L (3-35); SGPT/ALT 20 U/L (12-78); SODIUM 133 mmol/L (136-145); TOTAL PROTEIN 7.7 gm/dL (6.4-8.2)
[2017-01-21 15:59] LABS: TROPONIN I < 0.015 ng/ml (<0.045)
[2017-01-21 17:22] VITALS: BP 101/51
== END 2017-01-21 18:12 | disposition short-term general hospital (02) ==
LOC: ED 14:57
PROVIDERS: Nurse Practitioner Family
DX: E11.22 Type 2 diabetes mellitus with diabetic chronic kidney disease (principal); I12.0 Hypertensive chronic kidney disease with stage 5 chronic kidney disease or end stage renal disease; N18.6 End stage renal disease; I95.9 Hypotension, unspecified; R00.1 Bradycardia, unspecified; I48.0 Paroxysmal atrial fibrillation; R07.9 Chest pain, unspecified; Z99.2 Dependence on renal dialysis; Z79.4 Long term (current) use of insulin; Z79.899 Other long term (current) drug therapy

== ENCOUNTER → 2017-01-24 | Outpatient (CLI) | payer MEDICARE ==
[2017-01-24 11:14] LABS: BASO % 0.3 % (0.0-1.0); EOS # 0.2 10*3/uL (0.0-0.4); HEMATOCRIT 32.4 % (42.0-52.0); HEMOGLOBIN 10.8 g/dl (14.0-18.0); LYMPH # 0.8 10*3/uL (1.3-4.4); LYMPH % 8.3 % (27.0-41.0); MEAN CELL VOLUME 94.2 fl (80.0-94.0); MEAN CORPUSCULAR HGB 31.4 pg (27.0-31.0); MEAN CORPUSCULAR HGB CONC 33.3 g/dl (33.0-37.0); MEAN PLATELET VOLUME 8.8 fl (9.6-12.3); MONO % 11.3 % (3.0-9.0); NEUT # 7.1 10*3/uL (2.3-7.9); NEUT % 77.2 % (47.0-73.0); PLATELET COUNT AUTOMATED 225 10*3/uL (130-400); RED BLOOD COUNT 3.44 10*6/uL (4.50-5.90); RED CELL DISTRI WIDTH 15.3 % (0-14.5); WHITE BLOOD COUNT 9.1 10*3/uL (4.8-10.8)
[2017-01-24 11:29] LABS: ALBUMIN 2.9 gm/dl (3.1-4.5); CREATININE 13.2 mg/dL (0.70-1.30); POTASSIUM 3.8 mmol/L (3.5-5.1)
== END | disposition home or self-care (01) ==
LOC: LAB 10:20
DX: N39.0 Urinary tract infection, site not specified (principal); N19 Unspecified kidney failure

== ENCOUNTER → 2017-02-03 | Outpatient (CLI) | payer MEDICARE ==
[2017-02-03 08:57] LABS: BILIRUBIN NEGATIVE (NEGATIVE); BLOOD 1+ (NEGATIVE); CLARITY CLOUDY (CLEAR); COLOR YELLOW (YELLOW); GLUCOSE 2+ (NEGATIVE); KETONE NEGATIVE (NEGATIVE); LEUKO ESTERASE 3+ (NEGATIVE); NITRITE NEGATIVE (NEGATIVE); UROBILINOGEN 0.2 E.U./dl (0.2-1.0)
[2017-02-03 08:59] LABS: BASO % 0.6 % (0.0-1.0); EOS # 0.2 10*3/uL (0.0-0.4); EOS % 3.2 % (1.0-4.0); HEMATOCRIT 34.1 % (42.0-52.0); HEMOGLOBIN 10.6 g/dl (14.0-18.0); LYMPH # 0.8 10*3/uL (1.3-4.4); LYMPH % 11.3 % (27.0-41.0); MEAN CELL VOLUME 95.8 fl (80.0-94.0); MEAN CORPUSCULAR HGB 29.8 pg (27.0-31.0); MEAN CORPUSCULAR HGB CONC 31.1 g/dl (33.0-37.0); MEAN PLATELET VOLUME 9.4 fl (9.6-12.3); MONO # 0.5 10*3/uL (0.1-1.0); MONO % 7.5 % (3.0-9.0); NEUT # 5.2 10*3/uL (2.3-7.9); NEUT % 76.8 % (47.0-73.0); PLATELET COUNT AUTOMATED 269 10*3/uL (130-400); RED BLOOD COUNT 3.56 10*6/uL (4.50-5.90); RED CELL DISTRI WIDTH 15.1 % (0-14.5); WHITE BLOOD COUNT 6.8 10*3/uL (4.8-10.8)
[2017-02-03 09:08] LABS: WBC TNTC wbc/hpf (0-5)
[2017-02-03 09:22] LABS: ALBUMIN 2.9 gm/dl (3.1-4.5); BUN 79 mg/dl (7-24); CHLORIDE 98 mmol/L (98-107); POTASSIUM 4.3 mmol/L (3.5-5.1); SODIUM 133 mmol/L (136-145)
[2017-02-03 09:29] LABS: ALKALINE PHOSPHATASE 185 U/L (45-117); BILIRUBIN, DIRECT < 0.1 mg/dL (0.0-0.2); CHOLESTEROL 109 mg/dL (<200); FREE T4 0.87 ng/dl (0.76-1.46); HDL CHOLESTEROL 44 mg/dl (40-60); LDL CHOLESTEROL 43 mg/dL (9-159); SGOT/AST 13 IU/L (3-35); SGPT/ALT 23 U/L (12-78); TOTAL PROTEIN 7.7 gm/dL (6.4-8.2); TRIGLYCERIDES 111 mg/dl (<150); VLDL CHOLESTEROL 22 mg/dL (6-40)
[2017-02-03 09:53] LABS: VITAMIN D, 25-HYDROXY 24.8 ng/mL (30-100)
== END | disposition home or self-care (01) ==
LOC: LAB 08:18 → US 10:00
PROVIDERS: Urology
DX: N26.1 Atrophy of kidney (terminal) (principal); E11.22 Type 2 diabetes mellitus with diabetic chronic kidney disease; N18.9 Chronic kidney disease, unspecified; D40.0 Neoplasm of uncertain behavior of prostate; E04.9 Nontoxic goiter, unspecified; E78.5 Hyperlipidemia, unspecified; E55.9 Vitamin D deficiency, unspecified

== ENCOUNTER → 2017-02-13 | Outpatient (CLI) | payer MEDICARE | END | disposition home or self-care (01) | LOC: US 11:41 | DX: N43.3 Hydrocele, unspecified (principal); N50.89 Other specified disorders of the male genital organs ==

== ENCOUNTER → 2017-05-02 | Outpatient (CLI) | payer MEDICARE ==
[2017-05-02 09:06] LABS: BILIRUBIN NEGATIVE (NEGATIVE); BLOOD 2+ (NEGATIVE); CLARITY TURBID (CLEAR); COLOR YELLOW (YELLOW); GLUCOSE 2+ (NEGATIVE); KETONE NEGATIVE (NEGATIVE); LEUKO ESTERASE 3+ (NEGATIVE); NITRITE NEGATIVE (NEGATIVE); PH 6.5 (5.0-9.0); UROBILINOGEN 0.2 E.U./dl (0.2-1.0)
[2017-05-02 09:24] LABS: VITAMIN D, 25-HYDROXY 19.6 ng/mL (30-100)
[2017-05-02 09:30] LABS: BUN 73 mg/dl (7-24); CHLORIDE 98 mmol/L (98-107); SODIUM 136 mmol/L (136-145)
[2017-05-02 09:39] LABS: ALKALINE PHOSPHATASE 148 U/L (45-117); BILIRUBIN, DIRECT < 0.1 mg/dL (0.0-0.2); CHOLESTEROL 112 mg/dL (<200); FREE T4 1.07 ng/dl (0.76-1.46); HDL CHOLESTEROL 46 mg/dl (40-60); LDL CHOLESTEROL 43 mg/dL (9-159); SGOT/AST 13 IU/L (3-35); SGPT/ALT 20 U/L (12-78); TOTAL PROTEIN 8.1 gm/dL (6.4-8.2); TRIGLYCERIDES 114 mg/dl (<150); VLDL CHOLESTEROL 23 mg/dL (6-40)
[2017-05-02 10:52] LABS: WBC TNTC wbc/hpf (0-5)
[2017-05-02 10:53] LABS: BACTERIA 2+; EPITHELIAL CELLS 15-20; RBC 41-50 rbc/hpf (0-2)
== END | disposition home or self-care (01) ==
LOC: LAB 08:16
PROVIDERS: Internal Medicine
DX: E11.40 Type 2 diabetes mellitus with diabetic neuropathy, unspecified (principal); E10.65 Type 1 diabetes mellitus with hyperglycemia; E78.5 Hyperlipidemia, unspecified; E04.9 Nontoxic goiter, unspecified; E55.9 Vitamin D deficiency, unspecified

== ENCOUNTER → 2017-07-31 | Outpatient (CLI) | payer MEDICARE ==
[2017-07-31 11:52] LABS: BASO % 0.3 % (0.0-1.0); EOS # 0.2 10*3/uL (0.0-0.4); EOS % 1.9 % (1.0-4.0); HEMATOCRIT 31.2 % (42.0-52.0); HEMOGLOBIN 9.9 g/dl (14.0-18.0); LYMPH # 0.7 10*3/uL (1.3-4.4); LYMPH % 8.4 % (27.0-41.0); MEAN CELL VOLUME 98.4 fl (80.0-94.0); MEAN CORPUSCULAR HGB 31.2 pg (27.0-31.0); MEAN CORPUSCULAR HGB CONC 31.7 g/dl (33.0-37.0); MEAN PLATELET VOLUME 9.2 fl (9.6-12.3); MONO # 0.8 10*3/uL (0.1-1.0); NEUT % 79.7 % (47.0-73.0); PLATELET COUNT AUTOMATED 215 10*3/uL (130-400); RED BLOOD COUNT 3.17 10*6/uL (4.50-5.90); RED CELL DISTRI WIDTH 15.5 % (0-14.5); WHITE BLOOD COUNT 8.8 10*3/uL (4.8-10.8)
[2017-07-31 12:41] LABS: CREATININE 11.9 mg/dL (0.70-1.30); POTASSIUM 3.8 mmol/L (3.5-5.1); TOTAL PROTEIN 7.4 gm/dL (6.4-8.2)
== END | disposition home or self-care (01) ==
LOC: LAB 11:17 → US 12:30
PROVIDERS: Urology
DX: R31.9 Hematuria, unspecified (principal); N19 Unspecified kidney failure

== ENCOUNTER → 2017-10-30 | Outpatient (CLI) | payer MEDICARE ==
[2017-10-30 09:23] LABS: BILIRUBIN NEGATIVE (NEGATIVE); BLOOD 1+ (NEGATIVE); CLARITY CLOUDY (CLEAR); COLOR YELLOW (YELLOW); GLUCOSE 1+ (NEGATIVE); KETONE NEGATIVE (NEGATIVE); LEUKO ESTERASE 3+ (NEGATIVE); NITRITE NEGATIVE (NEGATIVE); UROBILINOGEN 0.2 E.U./dl (0.2-1.0)
[2017-10-30 09:43] LABS: ALBUMIN 3.3 gm/dl (3.1-4.5); BILIRUBIN, DIRECT 0.1 mg/dL (0.0-0.2); CREATININE 12.4 mg/dL (0.70-1.30); FREE T4 0.97 ng/dl (0.76-1.46); POTASSIUM 3.3 mmol/L (3.5-5.1); TOTAL PROTEIN 7.9 gm/dL (6.4-8.2)
[2017-10-30 09:49] LABS: THYROID STIM HORMONE (HS) 3.52 uIU/ml (0.358-4.75)
== END | disposition home or self-care (01) ==
LOC: LAB 08:47
PROVIDERS: Internal Medicine
DX: E78.5 Hyperlipidemia, unspecified (principal); E10.65 Type 1 diabetes mellitus with hyperglycemia; E55.9 Vitamin D deficiency, unspecified; E04.9 Nontoxic goiter, unspecified

== ENCOUNTER → 2018-08-03 | Outpatient (CLI) | payer MEDICARE ==
[~2018-08-03] MED LIST changes: +AURYXIA210 MG PO; +CARVEDILOL12.5 MG PO; +CEPHALEXIN500 M1 PO; +LEVEMIR FL100 UNIT/1 SQ; +LEVOTHYROXINE75 MCG PO; +OMNICEF300 MG PO; +PROPAFENONE HY150 MG PO; +SODIUM BICARBO650 MG PO; +VITAMIN D32000 UNIT PO
--- NOTE | ~2018-08-03 | HM ---
[place], [place] HOLTER MONITOR REPORT NAME: KATHIE YANEZ UNIT #: [id number] ROOM: DOCTOR: ERWIN RESENDIZ MD BIRTHDATE: [birth year] DOS: 08/03/2018 HOLTER REPORT TOTAL TIME ANALYZED: 47 hours and 59 minutes. The underlying rhythm was normal sinus with a minimum rate of 55 and maximum rate of 77 beats per minute. There were frequent premature atrial complexes amounting to 4031, some occurring in sequential as consecutively causing tachycardia. There were also a few runs of atrial flutter with a ventricular rate of 146 beats per minute with variable AV conduction. Only two ventricular ectopic beats were identified. The patient did not enter any symptoms in the diary. CONCLUSION: 1. Underlying rhythm is normal sinus rhythm with frequent premature atrial complexes. 2. Short runs of atrial flutter with variable AV conduction. ERWIN RESENDIZ MD CM:HOLTER:HOLTER MONITOR REPORT [id number] 1807 ERWIN RESENDIZ MD
== END | disposition home or self-care (01) ==
LOC: CARD 09:43
DX: I48.91 Unspecified atrial fibrillation (principal)

== ENCOUNTER → 2018-09-14 | Outpatient (CLI) | payer MEDICARE | END | disposition home or self-care (01) | LOC: WOUNDCARE 02:55 | DX: E11.621 Type 2 diabetes mellitus with foot ulcer (principal); L97.512 Non-pressure chronic ulcer of other part of right foot with fat layer exposed; L84 Corns and callosities; E11.22 Type 2 diabetes mellitus with diabetic chronic kidney disease; I12.0 Hypertensive chronic kidney disease with stage 5 chronic kidney disease or end stage renal disease; N18.6 End stage renal disease; N40.0 Benign prostatic hyperplasia without lower urinary tract symptoms; M47.9 Spondylosis, unspecified; E66.9 Obesity, unspecified; Z79.4 Long term (current) use of insulin; Z99.2 Dependence on renal dialysis; Z87.891 Personal history of nicotine dependence; Z68.39 Body mass index [BMI] 39.0-39.9, adult ==

== ENCOUNTER → 2018-09-21 | Outpatient (CLI) | payer MEDICARE | END | disposition home or self-care (01) | LOC: WOUNDCARE 00:48 | DX: E11.621 Type 2 diabetes mellitus with foot ulcer (principal); L97.512 Non-pressure chronic ulcer of other part of right foot with fat layer exposed; L84 Corns and callosities; E11.22 Type 2 diabetes mellitus with diabetic chronic kidney disease; I12.0 Hypertensive chronic kidney disease with stage 5 chronic kidney disease or end stage renal disease; N18.6 End stage renal disease; I48.91 Unspecified atrial fibrillation; E66.9 Obesity, unspecified; N40.0 Benign prostatic hyperplasia without lower urinary tract symptoms; M47.9 Spondylosis, unspecified; Z87.891 Personal history of nicotine dependence; Z99.2 Dependence on renal dialysis ==

== ENCOUNTER → 2018-09-28 | Outpatient (CLI) | payer MEDICARE | END | disposition home or self-care (01) | LOC: WOUNDCARE 03:34 → EDSTATUS 03:35 → WOUNDCARE 07:52 | DX: E11.621 Type 2 diabetes mellitus with foot ulcer (principal); L97.512 Non-pressure chronic ulcer of other part of right foot with fat layer exposed; L84 Corns and callosities; E11.22 Type 2 diabetes mellitus with diabetic chronic kidney disease; I12.0 Hypertensive chronic kidney disease with stage 5 chronic kidney disease or end stage renal disease; N18.6 End stage renal disease; N40.0 Benign prostatic hyperplasia without lower urinary tract symptoms; I48.91 Unspecified atrial fibrillation; E66.9 Obesity, unspecified; M47.9 Spondylosis, unspecified; Z99.2 Dependence on renal dialysis; Z87.891 Personal history of nicotine dependence; Z68.39 Body mass index [BMI] 39.0-39.9, adult ==

== ENCOUNTER 2018-11-21 13:23 | Inpatient (IN) | payer MEDICARE ==
[~2018-11-21] VITALS: Ht 172.7 cm; Wt 132.6 kg
[2018-11-21] VITALS (7 sets, daily range): BP systolic 99–127; BP diastolic 51–72
--- NOTE | ~2018-11-21 | EKG ---
[place], [place] ELECTROCARDIOGRAM REPORT NAME: KATHIE YANEZ UNIT #: [id number] ROOM: 528 DOCTOR: ASHLEY DRAFT REPORT BIRTHDATE: [birth year] [facility] Test Date: 2018-11-21 Test Time: 13:27:46 Pat Name: KATHIE YANEZ Department: Room: 528 Gender: M Senior Resident Care Director: : 1955 Requested By: SINCERE HERNÁNDEZ Order Number: [id number] Reading MD: Hilton Desouza MD Measurements Intervals [place] Rate: 107 P: 94 SC: 155 QRS: 171 QRSD: 112 T: 71 QT: 388 QTc: 518 Interpretive Statements Sinus tachycardia Left posterior fascicular block Abnormal R-wave progression, late transition Prolonged QT interval No previous ECG available for comparison Electronically Signed On 11-22-2018 15:59:19 PDT by Hilton Desouza MD CM:EKGRPT:ELECTROCARDIOGRAM REPORT [id number] 1559 SINCERE RAMIREZ DRAFT REPORT SINCERE HERNÁNDEZ M.D.
--- NOTE | ~2018-11-21 | EKG ---
[place], [place] ELECTROCARDIOGRAM REPORT NAME: KATHIE YANEZ UNIT #: [id number] ROOM: 528 DOCTOR: ASHLEY DRAFT REPORT BIRTHDATE: [birth year] [facility] Test Date: 2018-11-21 Test Time: 16:31:03 Pat Name: KATHIE YANEZ Department: Room: 528 Gender: M [employer]: : 1955 Requested By: SINCERE HERNÁNDEZ Order Number: [id number] Reading MD: Hilton Desouza MD Measurements Intervals [place] Rate: 110 P: [place]: QRS: 170 QRSD: 125 T: 77 QT: 377 QTc: 511 Interpretive Statements Atrial flutter with varied AV block, Nonspecific intraventricular conduction delay Baseline wander in lead(s) II No previous ECG available for comparison Electronically Signed On 11-22-2018 15:55:09 PDT by Hilton Desouza MD CM:EKGRPT:ELECTROCARDIOGRAM REPORT 1631 1555 SINCERE RAMIREZ DRAFT REPORT SINCERE HERNÁNDEZ M.D.
--- NOTE | ~2018-11-21 | CON ---
[place], [place] REPORT OF CONSULTATION NAME: KATHIE YANEZ UNIT #: [id number] ROOM: 528 DOCTOR: ALAINA GARDNER MD BIRTHDATE: [birth year] DOS: 11/21/2018 REASON FOR CONSULTATION: Hematuria/urinary tract infection. CHIEF COMPLAINT: Hematuria. HISTORY OF PRESENT ILLNESS: This is a 62-year-old male with past medical history of end-stage renal disease, on peritoneal dialysis, who has been having hematuria for almost last 2 months, and he recently visited his urologist on Monday, which is 11/21/2018, and he underwent a cystoscopy. He was discharged home and he continued to have hematuria and that brought him to the hospital. He has a suprapubic catheter and undergoes replacement every month and his next replacement is due for next month. He is also on Eliquis for his atrial fibrillation. He is thrombocytopenic chronically likely and also has cirrhosis of liver. He was recently in the ER on 11/11/2018 and there was no urinalysis done; however, his urine cultures at that time grew Serratia marcescens more than 100,000, colony units, and he was given Omnicef, which he was resistant. He was also given ciprofloxacin by his urologist, which he took only one dose. Clinically, he states that he had some improvement in his symptoms after he took Omnicef. He denies having any fever, chills, no bladder spasm, no abdominal pain, no nausea, vomiting, or diarrhea. He has bladder sensation. He denies having any dysuria. PAST MEDICAL HISTORY: Significant for benign prostatic hyperplasia, chronic renal failure, cirrhosis, end-stage renal disease on peritoneal dialysis, essential hypertension, lumbosacral region stenosis, insulin-dependent diabetes mellitus, and obesity. PAST SURGICAL HISTORY: AV fistula creation, history of ventral hernia repair, decompression of median nerve root surgery. SOCIAL HISTORY: Nonsmoker, nonalcoholic, no illicit drug use. FAMILY HISTORY: Father , heart condition; mother , lung cancer. ALLERGIES: No known drug allergies. HOME MEDICATIONS: Reviewed. REVIEW OF SYSTEMS: A 12-point review of systems has been done. Pertinent negative and positives included in the HPI, rest are noncontributory. PHYSICAL EXAMINATION: VITAL SIGNS: Current vitals include temperature of 98.9, blood pressure 99/33, pulse rate of 64, oxygen saturation 95% on room air. GENERAL: The patient is alert and oriented x 3, not in acute distress. HEENT: Atraumatic, normocephalic. PERRLA. EOMI. RESPIRATORY: Air entry is bilaterally equal. No wheezes or crackles. CARDIOVASCULAR: S1, S2 normal. No murmurs, rubs or gallops. ABDOMEN: Soft, nontender, obese. Peritoneal dialysis catheter site noted [place], [place] REPORT OF CONSULTATION NAME: KATHIE YANEZ UNIT #: [id number] ROOM: 528 DOCTOR: HAYDEE SAHA,[facility] BIRTHDATE: [birth year] intact. No exit site infection. Suprapubic catheter site externally has excoriations and pinpoint source of bleeding. His catheter bag still has blood mixed urine. EXTREMITIES: No pedal edema. LABORATORY DATA: Initially had a leukocytosis of 15.2, platelet count of 78, hemoglobin of 9.8 which on admission was 10.9. On review of his labs, his BUN is 96, creatinine 14.5. He had abdomen and pelvis CT done on 10/29/2018 that shows diffuse urinary bladder thickening as well as diffuse skin thickening of the anterior pelvic wall. ASSESSMENT AND PLAN: 1. Chronic hematuria, cystitis versus thrombocytopenia, also on anticoagulation. 2. Questionable cystitis with urine cultures positive for Serratia marcescens. 3. End-stage renal disease on peritoneal dialysis. 4. Cirrhosis of liver with unknown etiology. PLAN: At this time, the patient has persistent pyuria, which could be from his catheter as well as hematuria; however, he had symptomatic improvement while he was on Omnicef. Interestingly, he was resistant to Omnicef also for his Serratia marcescens in the urine. At this time, okay to continue with Levaquin, can discharge him on ciprofloxacin for another 10 days, renally adjusted and follow up in ID clinic in 2 weeks. For his thrombocytopenia and cirrhosis of liver, check viral hepatitis panel. If he continues to have bleeding despite being on antibiotics, consider holding anticoagulation after discussion with Cardiology. Monitor the patient for next 24 hours to see improvement in his hematuria. Thank you for consultation. Please call if any questions. Alaina Gardner MD CM:CONSTR:REPORT OF CONSULTATION 0948 11/23/18 0212 interface
[~2018-11-21 13:23] MED LIST changes: -AURYXIA210 MG PO; -CARVEDILOL12.5 MG PO; -CEPHALEXIN500 M1 PO; -LEVEMIR FL100 UNIT/1 SQ; -LEVOTHYROXINE75 MCG PO; -SODIUM BICARBO650 MG PO; -VITAMIN D32000 UNIT PO
[2018-11-21 13:46] LABS: BASO % 0.2 % (0.0-1.0); EOS # 0.1 10*3/uL (0.0-0.4); EOS % 0.6 % (1.0-4.0); HEMATOCRIT 34.1 % (42.0-52.0); HEMOGLOBIN 10.9 g/dl (14.0-18.0); LYMPH # 0.3 10*3/uL (1.3-4.4); LYMPH % 1.8 % (27.0-41.0); MEAN CELL VOLUME 98.3 fl (80.0-94.0); MEAN CORPUSCULAR HGB 31.4 pg (27.0-31.0); MEAN PLATELET VOLUME 9.5 fl (9.6-12.3); MONO # 1.3 10*3/uL (0.1-1.0); MONO % 8.3 % (3.0-9.0); NEUT # 13.4 10*3/uL (2.3-7.9); NEUT % 88.7 % (47.0-73.0); PLATELET COUNT AUTOMATED 78 10*3/uL (130-400); RED BLOOD COUNT 3.47 10*6/uL (4.50-5.90); RED CELL DISTRI WIDTH 15.6 % (0-14.5); WHITE BLOOD COUNT 15.2 10*3/uL (4.8-10.8)
[2018-11-21 13:57] LABS: ACT PARTIAL THROMBO TIME 33.3 SECONDS (20.0-32.1); INTERNATIONAL NORM RATIO 1.1 (2.0-3.5)
[2018-11-21 14:06] LABS: CREATININE 14.5 mg/dL (0.70-1.30); POTASSIUM 5.4 mmol/L (3.5-5.1); TOTAL PROTEIN 7.1 gm/dL (6.4-8.2)
[2018-11-21 14:10] LABS: TROPONIN I 0.023 ng/ml (<0.045)
[2018-11-21 18:48] LABS: BILIRUBIN NEGATIVE (NEGATIVE); BLOOD 3+ (NEGATIVE); CLARITY CLOUDY (CLEAR); COLOR RED (YELLOW); GLUCOSE NEGATIVE (NEGATIVE); KETONE NEGATIVE (NEGATIVE); LEUKO ESTERASE 3+ (NEGATIVE); NITRITE NEGATIVE (NEGATIVE); PH 8.5 (5.0-9.0); SPECIFIC GRAVITY 1.005 (1.005-1.030); UROBILINOGEN 0.2 E.U./dl (0.2-1.0)
[2018-11-21 18:49] LABS: RBC TNTC rbc/hpf (0-2); WBC TNTC wbc/hpf (0-5)
--- NOTE | 2018-11-21 19:10 | NUR ---
glucose on labs 58, provided OJ. will continue to monitor.
--- NOTE | 2018-11-21 19:21 | NUR ---
PT PROVIDED WITH BOXED LUNCH.
--- NOTE | 2018-11-21 19:45 | NUR ---
ATTEMPTED TO REACH BUTCH RN TO GIVE REPORT ON PT, NO ANSWER WILL CALL BACK.
--- NOTE | 2018-11-21 19:55 | NUR ---
SPOKE BAMBI RAE RN AND SHE IS READY FOR PT.
--- NOTE | 2018-11-21 20:00 | NUR ---
A 62, admitted to 5E, under the services of KWAME Oela DO with a diagnosis of HEMATURIA, RENAL FAILURE. Chief complaint is SOB, N/V, CHEST PAIN. Patient arrived via ambulatory from ER. Monitor applied. Initial assessment completed. Vital signs taken and recorded. KWAME OLEA DO notified of admission to the unit. Orders received. See assessment for past medical history, medications and allergies. Patient and/or family oriented to unit. visitation policy reviewed. Clothing/patient valuable form completed. BUTCH REYES
[2018-11-21] MEDS ORDERED: AURYXIA210 MG PO (20:59)
[2018-11-21] MEDS ORDERED: VITAMIN D32000 UNIT PO (21:00)
[2018-11-21] MEDS ORDERED: CARVEDILOL12.5 MG PO (21:00)
[2018-11-21] MEDS ORDERED: LEVOTHYROXINE75 MCG PO (21:03)
[2018-11-21] MEDS ORDERED: SODIUM BICARBO650 MG PO (21:11)
--- NOTE | 2018-11-21 21:34 | NUR ---
CALLED TO BRING PERITONEAL DIALYSIS EQUIPMENT TO HOSPITAL FOR 'S DIALYSIS. SHE SAID HE TOLD HER HE WASN'T DOING IT TONIGHT. EXPLAINED TO HER THE DOCTOR THINKS HE NEEDS TO DO IT. SAID SHE WILL BRING IT OVER.
[2018-11-21 21:48] LABS: HEMATOCRIT 33.7 % (42.0-52.0); HEMOGLOBIN 10.4 g/dl (14.0-18.0); MEAN CELL VOLUME 99.1 fl (80.0-94.0); MEAN CORPUSCULAR HGB 30.6 pg (27.0-31.0); MEAN CORPUSCULAR HGB CONC 30.9 g/dl (33.0-37.0); MEAN PLATELET VOLUME 9.5 fl (9.6-12.3); PLATELET COUNT AUTOMATED 81 10*3/uL (130-400); RED CELL DISTRI WIDTH 15.7 % (0-14.5); WHITE BLOOD COUNT 14.3 10*3/uL (4.8-10.8)
[2018-11-21 22:50] LABS: PLATELET SUFFICIENCY LOW (NORMAL); TOTAL CELLS COUNTED 100 #CELLS
--- NOTE | 2018-11-21 23:33 | NUR ---
PATIENT PERFORMS OWN PERITONEAL DIALYSIS. RUNNING AT THIS TIME. HOOKED UP PER PATIENT. WILL CONTINUE TO MONITOR. CALL LIGHT IN REACH.
[2018-11-22] VITALS: BP 142/76
[2018-11-22 05:57] LABS: BASO % 0.3 % (0.0-1.0); EOS % 0.4 % (1.0-4.0); HEMATOCRIT 31.5 % (42.0-52.0); HEMOGLOBIN 9.8 g/dl (14.0-18.0); LYMPH # 0.3 10*3/uL (1.3-4.4); LYMPH % 2.8 % (27.0-41.0); MEAN CELL VOLUME 99.4 fl (80.0-94.0); MEAN CORPUSCULAR HGB 30.9 pg (27.0-31.0); MEAN CORPUSCULAR HGB CONC 31.1 g/dl (33.0-37.0); MEAN PLATELET VOLUME 9.3 fl (9.6-12.3); MONO # 0.9 10*3/uL (0.1-1.0); MONO % 9.1 % (3.0-9.0); NEUT # 8.6 10*3/uL (2.3-7.9); PLATELET COUNT AUTOMATED 77 10*3/uL (130-400); RED BLOOD COUNT 3.17 10*6/uL (4.50-5.90); RED CELL DISTRI WIDTH 15.2 % (0-14.5); WHITE BLOOD COUNT 9.9 10*3/uL (4.8-10.8)
[2018-11-22 06:07] LABS: ALBUMIN 2.6 gm/dl (3.1-4.5); CREATININE 14.5 mg/dL (0.70-1.30); PHOSPHOROUS 6.8 mg/dL (2.5-4.9); POTASSIUM 4.9 mmol/L (3.5-5.1); TOTAL PROTEIN 6.5 gm/dL (6.4-8.2)
--- NOTE | 2018-11-22 07:00 | NUR ---
ARRIVED ON SHIFT, INTRODUCED TO PATIENT, BEDSIDE REPORT RECIEVED, WHITE BOARD UPDATERD, NO CONCERNS VOICED AT THIS TIME.
[2018-11-22 08:00] VITALS: BP 99/33
--- NOTE | 2018-11-22 09:12 | NUR ---
Shift chart check completed.
--- NOTE | 2018-11-22 10:58 | NUR ---
PHYSICAL THERAPY Initial eval done this morning on 5E. Demonstrated ability to gait 100' with CG assist on turns for balance assist with standing rest breaks due to fatigue. See eval for further status, goals and POC. Recommend home dc with HH services. Mercy Kuo, PT
--- NOTE | 2018-11-22 11:26 | NUR ---
Environmental Services Floor Tech in to talk to patient. Patient states lives at HOME with . There are FEW steps in the home. Physician: [facility] Pharmacy: [facility] health services: NONE Patient's level of ADLs: INDEPENDENT Patient has working utilities: YES DME: DIALYSIS EQUIPMENT DOES NIGHTLY PERITONEAL DIALYSIS AT HOME Follow-up physician's appointment after d/c: WILL BE MADE BY HOSPITALIST NURSE DIRECTOR ON DISCHARGE Does patient want to access PORTAL?: NO Discharge plan PT LIVES AT HOME WITH HIS . STATES HE DOES PERITONEAL DIALYSIS AT HOME EVERYNIGHT. STATES HE HAS NO NEW NEEDS AT HOME. WILL RETURN HOME ON DISCHARGE. WILL CONTINUE TO FOLLOW. STATES HE WILL HAVE A RIDE HOME AT DISCHARGE.. ELISEO PITTMAN
[2018-11-22 12:00] VITALS: BP 100/50; BP 102/31
--- NOTE | 2018-11-22 13:47 | NUR ---
Occupational Therapy offered but declined by patient. OTR explained OT plan and evaluation and what for but patient insists that he is independent in ADLs and functional mobility and does not need OT. present and is in agreement. Discharge OT referral. Thank you. Noelle Green OTR/Deon
[2018-11-22 15:52] VITALS: BP 90/50
--- NOTE | 2018-11-22 18:58 | NUR ---
CALL PLACED TO DR. TIM'S OFFICE, SPOKE WITH ANSWERING SERVICE GAVE DETAILED MESSAGE, ADVISED DR. LUIS, CALL BACK.
--- NOTE | 2018-11-22 19:06 | NUR ---
RECIEVED CALL BACK FROM , SHE ADVISED DR. TIM IS OUT OF TOWN, SHE WILL ,BE IN TO SEE PATIENT.
[2018-11-22 20:00] VITALS: BP 105/44
[2018-11-23] VITALS: BP 105/48
[2018-11-23 06:28] LABS: BASO % 0.2 % (0.0-1.0); EOS # 0.2 10*3/uL (0.0-0.4); EOS % 1.8 % (1.0-4.0); HEMATOCRIT 29.3 % (42.0-52.0); HEMOGLOBIN 9.3 g/dl (14.0-18.0); LYMPH # 0.6 10*3/uL (1.3-4.4); LYMPH % 7.1 % (27.0-41.0); MEAN CORPUSCULAR HGB 31.1 pg (27.0-31.0); MEAN CORPUSCULAR HGB CONC 31.7 g/dl (33.0-37.0); MEAN PLATELET VOLUME 10.1 fl (9.6-12.3); MONO % 12.2 % (3.0-9.0); NEUT # 6.6 10*3/uL (2.3-7.9); NEUT % 78.2 % (47.0-73.0); PLATELET COUNT AUTOMATED 69 10*3/uL (130-400); RED BLOOD COUNT 2.99 10*6/uL (4.50-5.90); WHITE BLOOD COUNT 8.5 10*3/uL (4.8-10.8)
[2018-11-23 06:55] LABS: ALBUMIN 2.5 gm/dl (3.1-4.5); CREATININE 14.8 mg/dL (0.70-1.30); PHOSPHOROUS 7.4 mg/dL (2.5-4.9); POTASSIUM 4.2 mmol/L (3.5-5.1); TOTAL PROTEIN 6.3 gm/dL (6.4-8.2)
--- NOTE | 2018-11-23 07:10 | NUR ---
ARRIVED ON SHIFT, PATIENT REQUESTED NOT TO BE AWAKENED FOR REPORT, REPORT RECIEVED, WHITE BOARD UPDATED.
[2018-11-23 08:00] VITALS: BP 100/50
--- NOTE | 2018-11-23 10:04 | NUR ---
Shift chart check completed.
[2018-11-23 12:00] VITALS: BP 94/50
--- NOTE | 2018-11-23 13:42 | NUR ---
Nutritional Support Services Note: Pt is a 62 year old male who presents with renal failure. He was triggered 2/2 renal disease and diet education. He stated when he goes for dialysis tx, the RDN there has explained in detail what he should be consuming so he doesn't want further education because he states she continuously follows up with him. [employer] Student
--- NOTE | 2018-11-23 13:46 | NUR ---
PT CONTINUES TO DENIES NEEDS AT HOME. WILL CONTINUE TO FOLLOW.
--- NOTE | 2018-11-23 15:35 | NUR ---
CALL PLACED TO DR. HUBBARD PER DR. LIZAMA REQUEST R/T TO URINE RESULTS. SPOKE WITH SILVA, SHE VERSED SHE WILL HAVE RETURN CALL.
[2018-11-23 16:00] VITALS: BP 80/50
[2018-11-23 20:00] VITALS: BP 105/50
[2018-11-24] VITALS: BP 112/52
--- NOTE | 2018-11-24 02:58 | NUR ---
24 HR chart check completed.
[2018-11-24 06:20] LABS: BASO % 0.3 % (0.0-1.0); EOS # 0.2 10*3/uL (0.0-0.4); EOS % 2.4 % (1.0-4.0); HEMOGLOBIN 9.6 g/dl (14.0-18.0); LYMPH # 0.5 10*3/uL (1.3-4.4); LYMPH % 7.1 % (27.0-41.0); MEAN CELL VOLUME 97.4 fl (80.0-94.0); MEAN CORPUSCULAR HGB 31.2 pg (27.0-31.0); MEAN PLATELET VOLUME 10.2 fl (9.6-12.3); MONO # 0.9 10*3/uL (0.1-1.0); MONO % 12.3 % (3.0-9.0); NEUT # 5.5 10*3/uL (2.3-7.9); NEUT % 77.3 % (47.0-73.0); PLATELET COUNT AUTOMATED 67 10*3/uL (130-400); RED BLOOD COUNT 3.08 10*6/uL (4.50-5.90); RED CELL DISTRI WIDTH 14.7 % (0-14.5); WHITE BLOOD COUNT 7.1 10*3/uL (4.8-10.8)
[2018-11-24 06:42] LABS: ALBUMIN 2.4 gm/dl (3.1-4.5); CREATININE 14.9 mg/dL (0.70-1.30); PHOSPHOROUS 7.6 mg/dL (2.5-4.9)
[2018-11-24 08:00] VITALS: BP 101/84
[2018-11-24 12:00] VITALS: BP 126/75; BP 92/50
[2018-11-24 16:00] VITALS: BP 90/52
[2018-11-24 20:00] VITALS: BP 80/44; BP 84/58
--- NOTE | 2018-11-24 20:45 | NUR ---
24 HOUR CHART CHECK COMPLETE.
[2018-11-25] VITALS: BP 122/75
[2018-11-25 06:08] LABS: BASO % 0.3 % (0.0-1.0); EOS # 0.1 10*3/uL (0.0-0.4); EOS % 1.8 % (1.0-4.0); HEMOGLOBIN 9.4 g/dl (14.0-18.0); LYMPH # 0.4 10*3/uL (1.3-4.4); LYMPH % 4.9 % (27.0-41.0); MEAN CORPUSCULAR HGB 31.1 pg (27.0-31.0); MEAN CORPUSCULAR HGB CONC 32.4 g/dl (33.0-37.0); MEAN PLATELET VOLUME 10.4 fl (9.6-12.3); MONO # 0.9 10*3/uL (0.1-1.0); MONO % 11.2 % (3.0-9.0); NEUT # 6.3 10*3/uL (2.3-7.9); NEUT % 81.3 % (47.0-73.0); PLATELET COUNT AUTOMATED 69 10*3/uL (130-400); RED BLOOD COUNT 3.02 10*6/uL (4.50-5.90); RED CELL DISTRI WIDTH 14.4 % (0-14.5); WHITE BLOOD COUNT 7.7 10*3/uL (4.8-10.8)
[2018-11-25 06:35] LABS: CREATININE 14.6 mg/dL (0.70-1.30); POTASSIUM 4.1 mmol/L (3.5-5.1)
[2018-11-25 08:00] VITALS: BP 100/52; BP 89/46
[2018-11-25 12:00] VITALS: BP 110/59
--- NOTE | 2018-11-25 12:37 | NUR ---
HELD COREG THIS AM PER PT REQUEST D/T HYPOTENSION.
--- NOTE | 2018-11-25 13:02 | NUR ---
Discharge instructions reviewed with patient/family. Patient receptive and verbalizes understanding. Follow-up care arranged. Written instructions given to patient/family. BIJAL KENNY
[2019-01-02] MEDS ORDERED: LEVEMIR FL100 UNIT/1 SQ (20:43)
[2019-01-05] MEDS ORDERED: CEPHALEXIN500 M1 PO (15:45)
== END 2018-11-25 13:02 | disposition home or self-care (01) | DRG 871 ==
LOC: ED 13:23 → 5E 18:43 → EDHOLD 18:43 → 5E 19:23
PROVIDERS: Emergency Medicine; Family Medicine; Internal Medicine; Student in an Organized Health Care Education/Training Program; ADMIT Internal Medicine
DX: A41.9 Sepsis, unspecified organism (principal); N18.6 End stage renal disease; I12.0 Hypertensive chronic kidney disease with stage 5 chronic kidney disease or end stage renal disease; N17.9 Acute kidney failure, unspecified; E87.1 Hypo-osmolality and hyponatremia; Z68.41 Body mass index [BMI] 40.0-44.9, adult; N30.91 Cystitis, unspecified with hematuria; D53.9 Nutritional anemia, unspecified; E87.5 Hyperkalemia; E11.649 Type 2 diabetes mellitus with hypoglycemia without coma; I48.0 Paroxysmal atrial fibrillation; E03.9 Hypothyroidism, unspecified; E83.41 Hypermagnesemia; E88.09 Other disorders of plasma-protein metabolism, not elsewhere classified; R31.9 Hematuria, unspecified; E66.9 Obesity, unspecified; K74.60 Unspecified cirrhosis of liver; N40.0 Benign prostatic hyperplasia without lower urinary tract symptoms; E11.22 Type 2 diabetes mellitus with diabetic chronic kidney disease; Z99.2 Dependence on renal dialysis; Z82.49 Family history of ischemic heart disease and other diseases of the circulatory system; Z80.1 Family history of malignant neoplasm of trachea, bronchus and lung; Z79.01 Long term (current) use of anticoagulants; Z79.4 Long term (current) use of insulin; Z90.49 Acquired absence of other specified parts of digestive tract; Z98.52 Vasectomy status; Z83.3 Family history of diabetes mellitus; Z82.3 Family history of stroke; Z83.6 Family history of other diseases of the respiratory system

== ENCOUNTER → 2018-12-25 | Outpatient (CLI) | payer MEDICARE ==
[~2018-12-25] MED LIST changes: +AURYXIA210 MG PO; +CARVEDILOL12.5 MG PO; +CEPHALEXIN500 M1 PO; +LEVEMIR FL100 UNIT/1 SQ; +LEVOTHYROXINE75 MCG PO; +SODIUM BICARBO650 MG PO; +VITAMIN D32000 UNIT PO
[2018-12-25 09:55] LABS: BILIRUBIN NEGATIVE (NEGATIVE); BLOOD 3+ (NEGATIVE); CLARITY CLOUDY (CLEAR); COLOR RED (YELLOW); GLUCOSE NEGATIVE (NEGATIVE); KETONE NEGATIVE (NEGATIVE); LEUKO ESTERASE 3+ (NEGATIVE); NITRITE NEGATIVE (NEGATIVE); PH 8.5 (5.0-9.0); UROBILINOGEN 0.2 E.U./dl (0.2-1.0)
[2018-12-25 10:05] LABS: ALBUMIN 2.6 gm/dl (3.1-4.5); BILIRUBIN, DIRECT 0.3 mg/dL (0.0-0.2); CREATININE 12.3 mg/dL (0.70-1.30); POTASSIUM 4.6 mmol/L (3.5-5.1); TOTAL PROTEIN 6.6 gm/dL (6.4-8.2)
[2018-12-25 10:25] LABS: BACTERIA 4+; RBC TNTC rbc/hpf (0-2); WBC TNTC wbc/hpf (0-5)
[2018-12-25 12:59] LABS: VITAMIN D, 25-HYDROXY 25.4 ng/mL (30-100)
== END | disposition home or self-care (01) ==
LOC: LAB 09:18
PROVIDERS: Internal Medicine
DX: E55.9 Vitamin D deficiency, unspecified (principal); E11.40 Type 2 diabetes mellitus with diabetic neuropathy, unspecified; E11.65 Type 2 diabetes mellitus with hyperglycemia; E78.5 Hyperlipidemia, unspecified

== ENCOUNTER → 2019-02-01 | Outpatient (CLI) | payer MEDICARE ==
[2019-02-01 08:13] LABS: CREATININE 6.43 mg/dL (0.70-1.30)
== END | disposition home or self-care (01) ==
LOC: LAB 06:57
PROVIDERS: Internal Medicine Cardiovascular Disease
DX: I12.0 Hypertensive chronic kidney disease with stage 5 chronic kidney disease or end stage renal disease (principal); N18.6 End stage renal disease

== ENCOUNTER → 2019-03-27 | Outpatient (CLI) | payer MEDICARE | END | disposition home or self-care (01) | LOC: RESCLI 01:15 | DX: I12.0 Hypertensive chronic kidney disease with stage 5 chronic kidney disease or end stage renal disease (principal); E11.22 Type 2 diabetes mellitus with diabetic chronic kidney disease; N18.6 End stage renal disease; I48.91 Unspecified atrial fibrillation; K21.9 Gastro-esophageal reflux disease without esophagitis; E55.9 Vitamin D deficiency, unspecified; E53.8 Deficiency of other specified B group vitamins; E03.9 Hypothyroidism, unspecified; Z79.4 Long term (current) use of insulin; Z93.59 Other cystostomy status; Z79.899 Other long term (current) drug therapy ==

== ENCOUNTER → 2019-05-01 | Outpatient (CLI) | payer MEDICARE | END | disposition home or self-care (01) | LOC: LAB 07:31 | DX: I12.0 Hypertensive chronic kidney disease with stage 5 chronic kidney disease or end stage renal disease (principal); E11.21 Type 2 diabetes mellitus with diabetic nephropathy; E11.22 Type 2 diabetes mellitus with diabetic chronic kidney disease; N18.6 End stage renal disease; K21.9 Gastro-esophageal reflux disease without esophagitis; E03.9 Hypothyroidism, unspecified; I48.91 Unspecified atrial fibrillation; E55.9 Vitamin D deficiency, unspecified; E53.8 Deficiency of other specified B group vitamins; E66.9 Obesity, unspecified; Z93.59 Other cystostomy status; Z79.899 Other long term (current) drug therapy ==

== ENCOUNTER → 2019-05-08 | Outpatient (CLI) | payer MEDICARE ==
[2019-05-08 09:12] LABS: BILIRUBIN NEGATIVE (NEGATIVE); BLOOD 2+ (NEGATIVE); CLARITY CLOUDY (CLEAR); COLOR YELLOW (YELLOW); GLUCOSE TRACE (NEGATIVE); KETONE NEGATIVE (NEGATIVE); LEUKO ESTERASE 3+ (NEGATIVE); NITRITE NEGATIVE (NEGATIVE); SPECIFIC GRAVITY 1.015 (1.005-1.030); UROBILINOGEN 0.2 E.U./dl (0.2-1.0)
[2019-05-08 09:59] LABS: ALBUMIN 3.4 gm/dl (3.1-4.5); CREATININE 6.55 mg/dL (0.70-1.30); POTASSIUM 5.6 mmol/L (3.5-5.1); TOTAL PROTEIN 7.7 gm/dL (6.4-8.2)
[2019-05-08 10:05] LABS: BILIRUBIN, DIRECT 0.4 mg/dL (0.0-0.2); FREE T4 0.94 ng/dl (0.76-1.46); THYROID STIM HORMONE (HS) 2.48 uIU/ml (0.358-4.75)
[2019-05-08 10:38] LABS: VITAMIN D, 25-HYDROXY 63.2 ng/mL (30-100)
== END | disposition home or self-care (01) ==
LOC: LAB 08:45
PROVIDERS: Internal Medicine
DX: E03.9 Hypothyroidism, unspecified (principal); E11.65 Type 2 diabetes mellitus with hyperglycemia; E55.9 Vitamin D deficiency, unspecified; E04.9 Nontoxic goiter, unspecified; E11.40 Type 2 diabetes mellitus with diabetic neuropathy, unspecified; E78.5 Hyperlipidemia, unspecified

== ENCOUNTER → 2019-05-31 | Outpatient (CLI) | payer MEDICARE ==
[2019-05-31 09:18] LABS: BASO % 0.8 % (0.0-1.0); EOS # 0.2 10*3/uL (0.0-0.4); EOS % 4.2 % (1.0-4.0); HEMOGLOBIN 12.5 g/dl (14.0-18.0); LYMPH # 0.7 10*3/uL (1.3-4.4); LYMPH % 14.3 % (27.0-41.0); MEAN CORPUSCULAR HGB 31.1 pg (27.0-31.0); MEAN CORPUSCULAR HGB CONC 32.1 g/dl (33.0-37.0); MEAN PLATELET VOLUME 9.6 fl (9.6-12.3); MONO # 0.4 10*3/uL (0.1-1.0); MONO % 8.6 % (3.0-9.0); NEUT # 3.4 10*3/uL (2.3-7.9); NEUT % 71.9 % (47.0-73.0); PLATELET COUNT AUTOMATED 156 10*3/uL (130-400); RED BLOOD COUNT 4.02 10*6/uL (4.50-5.90); RED CELL DISTRI WIDTH 14.6 % (0-14.5); WHITE BLOOD COUNT 4.8 10*3/uL (4.8-10.8)
[2019-05-31 09:47] LABS: ALBUMIN 3.5 gm/dl (3.1-4.5); CREATININE 6.96 mg/dL (0.70-1.30); POTASSIUM 4.4 mmol/L (3.5-5.1); TOTAL PROTEIN 7.4 gm/dL (6.4-8.2)
== END | disposition home or self-care (01) ==
LOC: LAB 08:45
PROVIDERS: Nurse Practitioner Family
DX: Z12.5 Encounter for screening for malignant neoplasm of prostate (principal); N19 Unspecified kidney failure; R53.83 Other fatigue

== ENCOUNTER → 2019-06-06 | Outpatient (CLI) | payer MEDICARE | END | disposition home or self-care (01) | LOC: US 15:30 | DX: N28.89 Other specified disorders of kidney and ureter (principal) ==

== ENCOUNTER → 2019-06-11 | Outpatient (CLI) | payer OTHER | END | disposition home or self-care (01) | LOC: CARD 10:25 | DX: Z76.82 Awaiting organ transplant status (principal) ==

== ENCOUNTER → 2019-07-11 | Outpatient (CLI) | payer MEDICARE | END | disposition home or self-care (01) | LOC: RESCLI 00:38 | DX: E11.21 Type 2 diabetes mellitus with diabetic nephropathy (principal); E11.22 Type 2 diabetes mellitus with diabetic chronic kidney disease; I12.9 Hypertensive chronic kidney disease with stage 1 through stage 4 chronic kidney disease, or unspecified chronic kidney disease; N18.6 End stage renal disease; K21.9 Gastro-esophageal reflux disease without esophagitis; E03.9 Hypothyroidism, unspecified; I48.91 Unspecified atrial fibrillation; E55.9 Vitamin D deficiency, unspecified; E53.8 Deficiency of other specified B group vitamins; L40.9 Psoriasis, unspecified; Z93.59 Other cystostomy status; Z79.899 Other long term (current) drug therapy; Z79.4 Long term (current) use of insulin ==

== ENCOUNTER → 2019-10-09 | Outpatient (CLI) | payer MEDICARE ==
[~2019-10-09] MED LIST changes: +ASPIRIN81 M1 PO; +ATORVASTATIN CA40 M1 PO; +CARVEDILOL3.125 MG PO; +DOXYCYCLINE100 M3 PO; +VITAMIN D3125 MCG PO; +[UNRECOGNIZED DRUG - OTHER]
== END | disposition home or self-care (01) ==
LOC: CT 09:56
DX: J43.9 Emphysema, unspecified (principal); J98.11 Atelectasis; R91.8 Other nonspecific abnormal finding of lung field; J90 Pleural effusion, not elsewhere classified; I25.10 Atherosclerotic heart disease of native coronary artery without angina pectoris

== ENCOUNTER 2019-12-01 19:12 | Inpatient (IN) | payer MEDICARE, SELFPAY ==
[~2019-12-01] VITALS: Ht 172.7 cm; Wt 108.9 kg
[~2019-12-01 19:12] MED LIST changes: -ATORVASTATIN CA40 M1 PO; +ELIQUIS2.5 M1 PO; -ELIQUIS5 M1 PO; +LIPITOR20 MG PO
[2019-12-01 19:30] VITALS: BP 123/40
[2019-12-01 20:19] LABS: BASO % 0.4 % (0.0-1.0); EOS # 0.6 10*3/uL (0.0-0.4); EOS % 6.1 % (1.0-4.0); HEMATOCRIT 24.2 % (42.0-52.0); LYMPH # 0.7 10*3/uL (1.3-4.4); LYMPH % 7.5 % (27.0-41.0); MEAN CORPUSCULAR HGB 30.2 pg (27.0-31.0); MEAN CORPUSCULAR HGB CONC 30.2 g/dl (33.0-37.0); MEAN PLATELET VOLUME 8.6 fl (9.6-12.3); MONO # 0.9 10*3/uL (0.1-1.0); MONO % 10.2 % (3.0-9.0); NEUT # 6.8 10*3/uL (2.3-7.9); NEUT % 75.1 % (47.0-73.0); PLATELET COUNT AUTOMATED 291 10*3/uL (130-400); RED BLOOD COUNT 2.42 10*6/uL (4.50-5.90); RED CELL DISTRI WIDTH 15.3 % (0-14.5)
[2019-12-01 20:35] LABS: ALBUMIN 2.6 gm/dl (3.1-4.5); CREATININE 6.49 mg/dL (0.70-1.30); POTASSIUM 4.2 mmol/L (3.5-5.1); TOTAL PROTEIN 6.8 gm/dL (6.4-8.2)
--- NOTE | 2019-12-01 20:45 | NUR ---
Pt resting in bed with at bedside, no distress noted/.
[2019-12-01 20:46] VITALS: BP 121/38
[2019-12-01 20:59] LABS: BILIRUBIN 1+ (NEGATIVE); BLOOD 3+ (NEGATIVE); CLARITY CLOUDY (CLEAR); COLOR YELLOW (YELLOW); GLUCOSE TRACE (NEGATIVE); KETONE NEGATIVE (NEGATIVE); LEUKO ESTERASE 1+ (NEGATIVE); NITRITE NEGATIVE (NEGATIVE); RBC TNTC rbc/hpf (0-2); UROBILINOGEN 0.2 E.U./dl (0.2-1.0)
[2019-12-01 21:00] LABS: BACTERIA 4+; MUCOUS 3+
[2019-12-01 21:16] VITALS: BP 132/41
--- NOTE | 2019-12-01 22:05 | NUR ---
Pt sitting in bed, no distress noted, Pt requested lights out.
[2019-12-01 22:17] VITALS: BP 140/44
--- NOTE | 2019-12-02 00:13 | NUR ---
PT IS SLEEPING IN ROOM. VS STABLE. PENDING BED PLACEMENT UPSTAIRS
--- NOTE | 2019-12-02 01:05 | NUR ---
Time: 104 A 63 year old MALE admitted to 5E under services of CAM THOMAS DO. Pt. arrived via wheel chair from ER. Chief complaint: UTI,HYPOGLYCEMIA. BRAXTON HADDAD
--- NOTE | 2019-12-02 01:59 | NUR ---
CALLED DR. HDZ MADE AWARE PT IN ROOM. MADE AWARE PT IS VERY ANGRY THAT HE IS ON A RENAL DIET. ALSO MEDICATIONS ARE RECONCILED. MADE AWARE PT HAS SURGICAL WOUNDS TO LEFT FLANK.
--- NOTE | 2019-12-02 02:06 | NUR ---
BRAD, ER NURSE NOTIFIED OF WOUNDS ON PATIENTS POSTERIOR CHEST. AWARE THAT PICTURES NEED TO BE TAKEN. MEASUREMENTS TAKEN BY THIS RN ON ADMISSION TO FLOOR. AWAITING ER NURSE TO RETURN TO TAKE PHOTOS.
--- NOTE | 2019-12-02 02:37 | NUR ---
NEW PT CONSULT CALLED INTO ANSWERING SERVICE FOR DR GARCIA.
--- NOTE | 2019-12-02 03:22 | NUR ---
[facility] AWARE OF PT ADMISSION.
--- NOTE | 2019-12-02 06:28 | NUR ---
KATHIE YANEZ [id number] Please refer to the physician's history and physical for past medical history, comorbid conditions, and allergies. Diagnosis: UTI,HYPOLGYCEMIA Erich Score: 18,LOW OR NO RISK WOUND DESCRIPTIONS: Wound Number: 1 Location of the wound: superior dorsal left flank Type of wound: surgical Thickness: Full Size: 0.5cm x 16.0cm x <0.1cm Tunneling: none Undermining: none Sinus Tract: none Presence of Exudate: none Amount: None Color: Brown, red Odor: None Periwound Skin Appearance: Erythema Wound edges: approximated Pain (associated with wound): none at time of assessment How does patient state this happened? pt states had surgery with Dr. Pierre on 11/15/19 and was scheduled to have a follow up apppointment today but will call and reschedule. He states he is supposed to clean it with iodine twice a day and leave it open to air which he does for him at home ound Number: 2 Location of the wound: proximal left lateral back Type of wound: surgical Thickness: Full Size: 0.1cm x 0.9cm x <0.1cm Tunneling: none Undermining: none Sinus Tract: none Presence of Exudate: none Amount: None Color: Brown, red Odor: None Periwound Skin Appearance: Erythema Wound edges: approximated Pain (associated with wound): none at time of assessment How does patient state this happened? pt states had surgery with Dr. Pierre on 11/15/19 and was scheduled to have a follow up apppointment today but will call and reschedule. He states he is supposed to clean it with iodine twice a day and leave it open to air which he does for him at home ound Number: 3 Location of the wound: medial left lateral back Type of wound: surgical Thickness: Full Size: 0.2cm x 1.7cm x <0.1cm Tunneling: none Undermining: none Sinus Tract: none Presence of Exudate: none Amount: None Color: Brown, red Odor: None Periwound Skin Appearance: Erythema Wound edges: approximated Pain (associated with wound): none at time of assessment How does patient state this happened? pt states had surgery with Dr. Pierre on 11/15/19 and was scheduled to have a follow up apppointment today but will call and reschedule. He states he is supposed to clean it with iodine twice a day and leave it open to air which he does for him at home ound Number: 4 Location of the wound: distal left lateral back Type of wound: surgical Thickness: Full Size: 0.2cm x 1.2cm x <0.1cm Tunneling: none Undermining: none Sinus Tract: none Presence of Exudate: none Amount: None Color: Brown, red Odor: None Periwound Skin Appearance: Erythema Wound edges: approximated with 1 suture Pain (associated with wound): none at time of assessment How does patient state this happened? pt states had surgery with Dr. Pierre on 11/15/19 and was scheduled to have a follow up apppointment today but will call and reschedule. He states he is supposed to clean it with iodine twice a day and leave it open to air which he does for him at home ound Number: 5 Location of the wound: proximal medial back Type of wound: surgical Thickness: Full Size: 0.1cm x 0.4cm x <0.1cm Tunneling: none Undermining: none Sinus Tract: none Presence of Exudate: none Amount: None Color: Brown, red Odor: None Periwound Skin Appearance: Erythema Wound edges: approximated Pain (associated with wound): none at time of assessment How does patient state this happened? pt states had surgery with Dr. Pierre on 11/15/19 and was scheduled to have a follow up apppointment today but will call and reschedule. He states he is supposed to clean it with iodine twice a day and leave it open to air which he does for him at home ound Number: 6 Location of the wound: middle medial back Type of wound: surgical Thickness: Full Size: 0.3cm x 1.5cm x <0.1cm Tunneling: none Undermining: none Sinus Tract: none Presence of Exudate: none Amount: None Color: Brown, red Odor: None Periwound Skin Appearance: Erythema Wound edges: approximated Pain (associated with wound): none at time of assessment How does patient state this happened? pt states had surgery with Dr. Pierre on 11/15/19 and was scheduled to have a follow up apppointment today but will call and reschedule. He states he is supposed to clean it with iodine twice a day and leave it open to air which he does for him at home ound Number: 7 Location of the wound: distal medial back Type of wound: surgical Thickness: Full Size: 0.2cm x 1.0cm x <0.1cm Tunneling: none Undermining: none Sinus Tract: none Presence of Exudate: none Amount: None Color: Brown, red Odor: None Periwound Skin Appearance: Erythema Wound edges: approximated with 1 suture Pain (associated with wound): none at time of assessment How does patient state this happened? pt states had surgery with Dr. Pierre on 11/15/19 and was scheduled to have a follow up apppointment today but will call and reschedule. He states he is supposed to clean it with iodine twice a day and leave it open to air which he does for him at home Surface the patient is resting on: Isoflex SKIN PREVENTION RECOMMENDATION: 1. Pressure redistribution support surface as appropriate 2. Elevate heels 3. Remove boots/TEDS every shift and reapply 4. Head of bed 30 degrees as tolerated 5. Assess nutrition and hydration 6. Manage moisture 7. Avoid the use of containment devices while in bed 8. Use absorptive products on surfaces limit layers of linens on bed 9. Turn and reposition every 1-2 hours in bed and every 1 hour in chair as tolerated 10. Weight shifts every 15 minutes while up in chair 11. Offloading with pillows or device to keep heels elevated off bed 12. Monitor skin at least every shift 13. Inspect under medical devices twice a day WOUND TREATMENT RECOMMENDATIONS: Cleanse superior dorsal left flank, proximal left lateral back, medial left lateral back, distal left lateral back, proximal medial back, middle medial back and distal medial back with iodine bid and leave open to air per patient requests. Patient will follow up with Dr. Pierre upon discharge.
--- NOTE | 2019-12-02 06:30 | NUR ---
GLUCOMETER UNABLE TO READ GLUCOSE LEVEL STATES ITS TOO HIGH. RECHECKED AND WAS PROMPTED WITH THE SAME READING. STAT GLUCOSE ORDERED. AWAITING RESULTS. PT DENIES ANY SYMPTOMS OF HYPERGLYCEMIA. STATES HE "FEELS FINE". WILL MONITOR.
[2019-12-02 06:37] LABS: BASO # 0.1 10*3/uL (0.0-0.1); BASO % 0.6 % (0.0-1.0); EOS # 0.4 10*3/uL (0.0-0.4); EOS % 4.6 % (1.0-4.0); HEMATOCRIT 26.1 % (42.0-52.0); LYMPH # 0.6 10*3/uL (1.3-4.4); LYMPH % 7.2 % (27.0-41.0); MEAN CELL VOLUME 102.8 fl (80.0-94.0); MEAN CORPUSCULAR HGB 29.5 pg (27.0-31.0); MEAN CORPUSCULAR HGB CONC 28.7 g/dl (33.0-37.0); MEAN PLATELET VOLUME 8.9 fl (9.6-12.3); MONO # 0.7 10*3/uL (0.1-1.0); MONO % 8.9 % (3.0-9.0); NEUT # 6.4 10*3/uL (2.3-7.9); NEUT % 77.7 % (47.0-73.0); PLATELET COUNT AUTOMATED 291 10*3/uL (130-400); RED BLOOD COUNT 2.54 10*6/uL (4.50-5.90); RED CELL DISTRI WIDTH 15.5 % (0-14.5); WHITE BLOOD COUNT 8.2 10*3/uL (4.8-10.8)
[2019-12-02 06:43] LABS: INTERNATIONAL NORM RATIO 1.2 (2.0-3.5)
[2019-12-02 06:54] LABS: ALBUMIN 2.7 gm/dl (3.1-4.5); CREATININE 7.38 mg/dL (0.70-1.30)
--- NOTE | 2019-12-02 06:58 | NUR ---
DR GATES NOTIFIED OF BLOOD GLUCOSE READING OF 730. NO NEW ORDERS AT THIS TIME.
--- NOTE | 2019-12-02 06:59 | NUR ---
TEDS/SCDS PLACED ON PATIENT.
[2019-12-02 07:00] LABS: THYROID STIM HORMONE (HS) 2.25 uIU/ml (0.358-4.75)
--- NOTE | 2019-12-02 07:01 | NUR ---
DR GATES STATES TO ORDER 10 UNITS OF HUMULIN R STAT FOR PT.
--- NOTE | 2019-12-02 07:04 | NUR ---
DR GATES STATES TO HOLD SLIDING SCALE OF HUMALOG, ADMINISTER 10 UNITS HUMULIN R ONLY.
[2019-12-02 07:06] LABS: POTASSIUM 5.2 mmol/L (3.5-5.1)
--- NOTE | 2019-12-02 07:41 | NUR ---
TOOK PATIENTS BLOOD SUGAR TWICE AND BOTH STATES HIGH >600, ATTEMPTED ON DIFFERENT FINGERS. CALLED DR GATES TO NOTIFY HIM, HE STATES TO CHECK BLOOD SUGAR AGAIN IN 30 MINUTES.
[2019-12-02 08:00] VITALS: BP 151/40
--- NOTE | 2019-12-02 08:18 | NUR ---
CHECKED PATIENT BLOOD SUGAR TWICE AND BOTH READING HIGH >600. DR ARTHUR NOTIFIED AND STATES TO GIVE 10U HUMULIN R NOW AND TO CHECK BLOOD SUGAR AGAIN IN 1 HOUR. WILL MONITOR
--- NOTE | 2019-12-02 08:42 | NUR ---
Dr. Delgado notified of wound care recommendations
--- NOTE | 2019-12-02 09:58 | NUR ---
DR ARTHUR ON FLOOR AND INFORMED OF TWO BLOOD SUGAR READINGS >600
--- NOTE | 2019-12-02 10:00 | NUR ---
SATNAM DALAL ON THE FLOOR AND NOTIFIED OF UPDATED MED LIST
--- NOTE | 2019-12-02 11:51 | NUR ---
UPDATED OPALR ABOUT PATIENT 2 BLOOD SUGARS READING HIGH >600. HE STATES TO REPEAT HUMULIN R 10 MG IV NOW
--- NOTE | 2019-12-02 11:53 | NUR ---
DR ARTHUR STATES TO HOLD SLIDING SCALE AND TO JUST DO HUMULIN R NOW
[2019-12-02 12:00] VITALS: BP 143/48
--- NOTE | 2019-12-02 13:07 | NUR ---
NOTIFIED DR CHASE OF BLOOD SUGAR READING 530, HE STATES TO CALL HIM BACK IN AN HOUR WITH ANOTHER GLUCOSE CHECK
--- NOTE | 2019-12-02 13:43 | NUR ---
DR CHASE NOTIFIED OF PATIENT WANTING SUTURES TO LEFT ARM TAKEN OUT
--- NOTE | 2019-12-02 14:10 | NUR ---
CALLED DR CHASE FOR BLOOD SUGAR OF 525, HE STATES ADD HUMULIN R 10 UNITS IV. WILL MONITOR
--- NOTE | 2019-12-02 14:29 | NUR ---
Zoo Caretaker in to talk to patient. Patient states lives at HOME with . There are NO steps in the home. Physician: [facility] Pharmacy: [facility] health services: NONE Patient's level of ADLs: INDEPENDENT Patient has working utilities: YES DME: OXYGEN , PORTABLE TANKS, GLUCOMETER Follow-up physician's appointment after d/c: WILL BE MADE BY HOSPITALIST NURSE DIRECTOR Does patient want to access PORTAL?: NO Discharge plan PT LIVES AT HOME WITH HIS AND IS INDEPENDENT IN HIS CARE. DENIES HE WILL HAVE ANY NEEDS ON DISCHARGE. PLAN IS TO RETURN HOME WHEN MEDICALLY STABLE. WILL CONTINUE TO FOLLOW. WILL HAVE A RIDE HOME ON DISCHARGE.. ELISEO PITTMAN
--- NOTE | 2019-12-02 15:31 | NUR ---
DR CHASE NOTIFIED OF BLOOD SUGAR 524, STATES ADD HUMULIN R 10 UNITS IV.
--- NOTE | 2019-12-02 15:50 | NUR ---
DR CHASE CALLED AND STATES HOLD SLIDING SCALE JUST GIVE THE HUMULIN R AND RECHECK IN AN HOUR
[2019-12-02 16:00] VITALS: BP 130/32
--- NOTE | 2019-12-02 17:15 | NUR ---
CALLED DR CHASE ABOUT BLOOD SUGAR OF 393 HE STATES TO CHECK IT TONIGHT AT 2200.
--- NOTE | 2019-12-02 17:32 | NUR ---
Shift chart check completed.
--- NOTE | 2019-12-02 19:26 | NUR ---
PT C/O 11/05 PAIN AT SURGICAL INCISIONS TO LEFT POSTERIOR CHEST. PT STATES IT BECAUSE HE "SLEEPS IN A CHAIR AT HOME AND CAN'T GET COMFORTABLE IN THE BED". WILL CONTINUE TO MONITOR AND REASSESS. NORCO ADMINISTERED.
--- NOTE | 2019-12-02 19:36 | NUR ---
REASSESSED PATIENTS BLOOD SUGAR, [address] QUARLES NOTIFIED. NO NEW ORDERS, STATES HE WILL COME UP TO THE FLOOR TO TALK WITH ME ABOUT IT.
--- NOTE | 2019-12-02 19:44 | NUR ---
SPOKE WITH DR QUARLES, STATES TO ORDER 8 UNITS HUMULIN R NOW FOR BLOOD SUGAR OF 461.
[2019-12-02 20:00] VITALS: BP 151/58
--- NOTE | 2019-12-02 20:20 | NUR ---
PT STATES NORCO WAS EFFECTIVE.
--- NOTE | 2019-12-02 21:57 | NUR ---
SPOKE TO DR QUARLES FOR BLOOD SUGAR OF 422. STATES TO GIVE 5 UNITS OF HUMALOG INSTEAD OF 14 PER SLIDING SCALE AND RECHECK AT 2330.
--- NOTE | 2019-12-02 23:29 | NUR ---
BLOOD SUGAR RECHECK [address] QUARLES NOTIFIED. STATES TO RECHECK IN AM LIKE ORDERED. WILL MONITOR.
[2019-12-03] VITALS: BP 125/46; BP 149/58
--- NOTE | 2019-12-03 05:07 | NUR ---
DR QUARLES NOTIFIED OF BLOOD GLUCOSE READING OF 228, STATES TO COVER ACCORDING TO SLIDING SCALE.
--- NOTE | 2019-12-03 06:15 | NUR ---
SPOKE WITH DIALYSIS, STATES TO APPLY NUMBING KAIA ONTO FISTULA NOW.
--- NOTE | 2019-12-03 06:20 | NUR ---
NORCO ADMINISTERED FOR PT C/O BACK PAIN RATED A 5/10. WILL CONTINUE TO MONITOR.
--- NOTE | 2019-12-03 06:52 | NUR ---
PT STATES NORCO WAS EFFECTIVE.
[2019-12-03 06:58] LABS: ALBUMIN 2.8 gm/dl (3.1-4.5); CREATININE 8.83 mg/dL (0.70-1.30); POTASSIUM 5.1 mmol/L (3.5-5.1)
[2019-12-03 07:02] LABS: ALBUMIN 2.8 gm/dl (3.1-4.5); BASO # 0.1 10*3/uL (0.0-0.1); BASO % 0.5 % (0.0-1.0); CREATININE 8.84 mg/dL (0.70-1.30); EOS # 0.7 10*3/uL (0.0-0.4); EOS % 6.4 % (1.0-4.0); LYMPH # 0.9 10*3/uL (1.3-4.4); LYMPH % 8.6 % (27.0-41.0); MEAN CORPUSCULAR HGB 29.8 pg (27.0-31.0); MEAN CORPUSCULAR HGB CONC 30.4 g/dl (33.0-37.0); MONO # 0.9 10*3/uL (0.1-1.0); MONO % 8.5 % (3.0-9.0); NEUT # 7.6 10*3/uL (2.3-7.9); NEUT % 75.3 % (47.0-73.0); PLATELET COUNT AUTOMATED 293 10*3/uL (130-400); POTASSIUM 5.5 mmol/L (3.5-5.1); RED BLOOD COUNT 2.55 10*6/uL (4.50-5.90); RED CELL DISTRI WIDTH 15.5 % (0-14.5); TOTAL PROTEIN 7.1 gm/dL (6.4-8.2); WHITE BLOOD COUNT 10.1 10*3/uL (4.8-10.8)
--- NOTE | 2019-12-03 07:50 | NUR ---
PT OFF FLOOR TO DIALYSIS
--- NOTE | 2019-12-03 11:53 | NUR ---
JUST BACK FROM LUNCH AND TOLD THAT MY PATIENT WAS READY AT DIALYSIS. PT WHEELED INTO ROOM, WILL CONTINUE TO MONITOR
[2019-12-03 12:00] VITALS: BP 138/89
--- NOTE | 2019-12-03 12:00 | NUR ---
PT TOLERATED DIALYSIS WELL. 2.4 KILO OFF. BS CHECKED AND READ 135. LUNCH ORDERED. CALL LIGHT WITHIN REACH, WILL CONTINUE TO MONITOR
--- NOTE | 2019-12-03 12:32 | NUR ---
PT CONTINUES TO STATE HE WILL RETURN HOME WHEN MEDICALLY STABLE WITH NO NEW NEEDS. WILL CONTINUE TO FOLLOW.
--- NOTE | 2019-12-03 15:38 | NUR ---
CALLED DR THURSTON TO LET HIM KNOW OF BLOOD SUGAR READING 439 THEN 409, HE STATES TO GIVE THE INSULIN THAT THE SLIDING SCALE WANTS, WHICH IS 14U AND RECHECK IN AN HOUR
[2019-12-03 16:00] VITALS: BP 128/61
--- NOTE | 2019-12-03 17:12 | NUR ---
CALLED DR CHASE TO INFORM HIM OF BLOOD SUGAR OF 480 AND 481. HE STATES TO GIVE A ONE TIME DOSE OF 10 UNITS HUMULIN R NOW
--- NOTE | 2019-12-03 17:43 | NUR ---
CALLED DR THURSTON TO INFORM HIM THE IV SITE WENT BAD, SO HE STATES ORDER 10U HUMULIN R SQ AND HE WILL TAKE CARE OF ANTIBIOTIC ORDER
[2019-12-03 20:00] VITALS: BP 125/46
[2019-12-03 21:30] VITALS: BP 120/64
--- NOTE | 2019-12-03 22:56 | NUR ---
24 HR chart check completed.
--- NOTE | 2019-12-03 23:00 | NUR ---
CALLED DR. QUARLES AND NOTIFIED HIM OF PATIENT STILL BEING OBSERVATION STATUS AND HE NEEDS TO DECIDE ON ADMITTING HIMBECAUSE AT 0105 IT WILL BE 48HR.
[2019-12-04] VITALS: BP 119/62
--- NOTE | 2019-12-04 06:18 | NUR ---
TRIED CALLING RESIDENT TO NOTIFY OF BLOOD CULTURE POSITIVE AND NO ANSWER, UNABLE TO LEAVE MESSAGE D/T MAILBOX FULL.
--- NOTE | 2019-12-04 06:30 | NUR ---
DR. QUARLES CALLED AND NOTIFIED OF BLOOD CULTURE POSITIVE. NO NEW ORDERS RECEIVED.
--- NOTE | 2019-12-04 07:00 | NUR ---
ARRIVED ON SHIFT, RECEIVED REPORT FROM OFF GOING NURSE, ASSUMED CARE OF PATIENT.
[2019-12-04 07:01] LABS: CREATININE 5.94 mg/dL (0.70-1.30); POTASSIUM 5.6 mmol/L (3.5-5.1)
--- NOTE | 2019-12-04 07:20 | NUR ---
INTRODUCED SELF TO PATIENT, BED IN LOW POSITION, WHEEL LOCKS ENGAGED, SIDE RAILS UP X 2 FOR TURNING AND REPOSITIONING, CALL LIGHT WITHIN REACH, NO NEEDS VOICED AT THIS TIME, WHITE BOARD UPDATED.
[2019-12-04 08:00] VITALS: BP 151/48
--- NOTE | 2019-12-04 08:27 | NUR ---
Shift chart check completed.
--- NOTE | 2019-12-04 11:36 | NUR ---
CALL PLACED TO ID, SPOKE WITH AZUL ADVISED OF DR. HAHN CONSULT, VERSED SHE WILL PUT ON CENSUS.
[2019-12-04 12:00] VITALS: BP 141/50
--- NOTE | 2019-12-04 13:04 | NUR ---
PT CONTINUES TO STATE HE WOULD LIKE TO GO HOME IF POSSIBLE. WILL CONTINUE TO FOLLOW.
[2019-12-04 16:00] VITALS: BP 146/46
--- NOTE | 2019-12-04 19:18 | NUR ---
CALL PLACED TO HOSPITALIST LINE, SPOKE WITH DR. QUARLES ADVISED OF BS OF 380, NO INSULIN TO BE GIVE AT THIS TIME, CONTINUE WITH CURRENT AC HS BLOOD SUGAR CHECKS.
[2019-12-04 20:00] VITALS: BP 145/56
--- NOTE | 2019-12-04 20:00 | NUR ---
24 HR CHART CHECK COMPLETE.
[2019-12-05] VITALS: BP 147/59
--- NOTE | 2019-12-05 07:00 | NUR ---
ARRIVED ON SHIFT, RECEIVED REPORT FROM OFF GOING NURSE, ASSUMED CARE OF PATIENT.
[2019-12-05 07:04] LABS: CREATININE 7.5 mg/dL (0.70-1.30)
--- NOTE | 2019-12-05 07:30 | NUR ---
INTRODUCED SELF TO PATIENT, BED IN LOW POSITION, WHEEL LOCKS ENGAGED, SIDE RAILS UP X 2 FOR TURNING AND REPOSITIONING, CALL LIGHT WITHIN REACH, NO NEEDS VOICED AT THIS TIME WHITE BOARD UPDATED.
--- NOTE | 2019-12-05 07:34 | NUR ---
Shift chart check completed.
--- NOTE | 2019-12-05 10:30 | NUR ---
PATIENT IN DIALYSIS, DIALYSIS NURSE CALLED PATIENT REQUESTED HIS BLOOD GLUCOSE BE CHECKED BS WAS 219, SPOKE WITH DR. PICKETT NO INSULIN TO BE GIVEN AT THIS TIME, CHECK BS AT REGULAR TIME.
[2019-12-05 12:00] VITALS: BP 130/62
[2019-12-05 16:00] VITALS: BP 157/50
--- NOTE | 2019-12-05 19:27 | NUR ---
24 HR CHART CHECK COMPLETE.
[2019-12-05 20:00] VITALS: BP 149/47
--- NOTE | 2019-12-05 22:38 | NUR ---
PT MEDICATED WITH PRN NORCO FOR C/O BACK PAIN RATED 8/10. WILL MONITOR FOR EFFECTIVENESS.
--- NOTE | 2019-12-05 23:30 | NUR ---
PT REPORTS RELIEF OF PAIN. PRN NORCO EFFECTIVE.
[2019-12-06] VITALS: BP 135/38
[2019-12-06 06:50] LABS: BASO # 0.1 10*3/uL (0.0-0.1); BASO % 0.9 % (0.0-1.0); EOS # 0.3 10*3/uL (0.0-0.4); EOS % 4.8 % (1.0-4.0); HEMATOCRIT 23.8 % (42.0-52.0); LYMPH # 0.8 10*3/uL (1.3-4.4); LYMPH % 14.2 % (27.0-41.0); MEAN CELL VOLUME 94.1 fl (80.0-94.0); MEAN CORPUSCULAR HGB 29.6 pg (27.0-31.0); MEAN CORPUSCULAR HGB CONC 31.5 g/dl (33.0-37.0); MEAN PLATELET VOLUME 8.9 fl (9.6-12.3); MONO # 0.7 10*3/uL (0.1-1.0); MONO % 13.3 % (3.0-9.0); NEUT # 3.7 10*3/uL (2.3-7.9); NEUT % 66.3 % (47.0-73.0); PLATELET COUNT AUTOMATED 251 10*3/uL (130-400); RED BLOOD COUNT 2.53 10*6/uL (4.50-5.90); RED CELL DISTRI WIDTH 15.3 % (0-14.5); WHITE BLOOD COUNT 5.6 10*3/uL (4.8-10.8)
--- NOTE | 2019-12-06 07:00 | NUR ---
ARRIVED ON SHIFT, REPORT RECEIVED FROM OFFGOING NURSE, ASSUMED CARE OF PATIENT.
[2019-12-06 07:07] LABS: CREATININE 5.25 mg/dL (0.70-1.30)
[2019-12-06 07:32] LABS: POTASSIUM 3.9 mmol/L (3.5-5.1)
--- NOTE | 2019-12-06 07:50 | NUR ---
Shift chart check completed.
[2019-12-06 08:00] VITALS: BP 137/60
[2019-12-06 12:00] VITALS: BP 130/76
--- NOTE | 2019-12-06 12:57 | NUR ---
TALKED TO PT AND YESTERDAY ABOUT DISCHARGE PLANS. THEY WANT PT TO GO HOME ON DISCHARGE. BOTH REFUSES HOME HEALTH. TALKED WITH THEM ABOUT IF PT WOULD NEED IV ANTIBOITICS WOULD SOMEONE BE ABLE TO LEARN TO GIVE THEM. THEY STATE PT WILL RETURN TO HOSPITAL EVERYDAY TO GET THEM IF NEEDED. WILL CONTINUE TO FOLLOW.
[2019-12-06] MEDS ORDERED: HUMALOG100 UNIT/1 SC (13:03)
--- NOTE | 2019-12-06 16:20 | NUR ---
Discharge instructions reviewed with patient/family. Patient receptive and verbalizes understanding. Follow-up care arranged. Written instructions given to patient/family, OBTAINED PATIENTS HOME MEDICATIONS FROM PHARMACY AND GIVE TO PATIENT UPON DISCHARGE, IV REMOVED, PATIENT TAKEN TAKEN OUT VIA W/C BY GUNNER BREWERN, RN
== END 2019-12-06 16:20 | disposition home or self-care (01) | DRG 698 ==
LOC: ED 19:12 → EDHOLD 23:25 → 5E 23:25
PROVIDERS: Emergency Medicine; Internal Medicine; Internal Medicine Nephrology; Student in an Organized Health Care Education/Training Program; ADMIT Internal Medicine
PROC: 5A1D70Z Performance of Urinary Filtration, Intermittent, Less than 6 Hours Per Day (ICD-10-PCS; principal; 2019-12-05)
DX: T83.510A Infection and inflammatory reaction due to cystostomy catheter, initial encounter (principal); E43 Unspecified severe protein-calorie malnutrition; N18.6 End stage renal disease; I13.2 Hypertensive heart and chronic kidney disease with heart failure and with stage 5 chronic kidney disease, or end stage renal disease; I50.32 Chronic diastolic (congestive) heart failure; E87.1 Hypo-osmolality and hyponatremia; N39.0 Urinary tract infection, site not specified; R78.81 Bacteremia; E11.649 Type 2 diabetes mellitus with hypoglycemia without coma; E11.65 Type 2 diabetes mellitus with hyperglycemia; E11.22 Type 2 diabetes mellitus with diabetic chronic kidney disease; K74.60 Unspecified cirrhosis of liver; I48.0 Paroxysmal atrial fibrillation; E66.9 Obesity, unspecified; D53.1 Other megaloblastic anemias, not elsewhere classified; E87.5 Hyperkalemia; B96.5 Pseudomonas (aeruginosa) (mallei) (pseudomallei) as the cause of diseases classified elsewhere; R82.71 Bacteriuria; Y82.8 Other medical devices associated with adverse incidents; Y92.89 Other specified places as the place of occurrence of the external cause; Z99.2 Dependence on renal dialysis; Z79.4 Long term (current) use of insulin; Z71.3 Dietary counseling and surveillance; Z82.49 Family history of ischemic heart disease and other diseases of the circulatory system; Z80.1 Family history of malignant neoplasm of trachea, bronchus and lung; Z79.899 Other long term (current) drug therapy; Z79.01 Long term (current) use of anticoagulants; Z68.36 Body mass index [BMI] 36.0-36.9, adult

== ENCOUNTER → 2019-12-19 | Outpatient (CLI) | payer MEDICARE ==
[~2019-12-19] MED LIST changes: +HUMALOG100 UNIT/1 SC
== END | disposition home or self-care (01) ==
LOC: RESCLI 00:42
DX: I12.0 Hypertensive chronic kidney disease with stage 5 chronic kidney disease or end stage renal disease (principal); E11.22 Type 2 diabetes mellitus with diabetic chronic kidney disease; N18.6 End stage renal disease; E11.21 Type 2 diabetes mellitus with diabetic nephropathy; I48.91 Unspecified atrial fibrillation; E03.9 Hypothyroidism, unspecified; E55.9 Vitamin D deficiency, unspecified; E53.8 Deficiency of other specified B group vitamins; L40.9 Psoriasis, unspecified; K21.9 Gastro-esophageal reflux disease without esophagitis; E78.5 Hyperlipidemia, unspecified; M79.89 Other specified soft tissue disorders

== ENCOUNTER → 2020-01-01 | Outpatient (CLI) | payer MEDICARE ==
[2020-01-01 08:54] LABS: ALBUMIN 3.3 gm/dl (3.1-4.5); BILIRUBIN, DIRECT 0.2 mg/dL (0.0-0.2); CREATININE 6.28 mg/dL (0.70-1.30); FREE T4 1.17 ng/dl (0.76-1.46); POTASSIUM 5.8 mmol/L (3.5-5.1); TOTAL PROTEIN 7.8 gm/dL (6.4-8.2)
[2020-01-01 08:59] LABS: THYROID STIM HORMONE (HS) 2.84 uIU/ml (0.358-4.75)
[2020-01-01 09:09] LABS: VITAMIN D, 25-HYDROXY 72.1 ng/mL (30-100)
== END | disposition home or self-care (01) ==
LOC: LAB 07:43
PROVIDERS: Internal Medicine
DX: E11.40 Type 2 diabetes mellitus with diabetic neuropathy, unspecified (principal); E78.5 Hyperlipidemia, unspecified; E04.9 Nontoxic goiter, unspecified; E55.9 Vitamin D deficiency, unspecified

== ENCOUNTER → 2020-02-28 | Outpatient (CLI) | payer MEDICARE | END | disposition home or self-care (01) | LOC: RESCLI 02:42 | PROVIDERS: ATTEND Internal Medicine | DX: I12.0 Hypertensive chronic kidney disease with stage 5 chronic kidney disease or end stage renal disease (principal); N18.6 End stage renal disease; E11.22 Type 2 diabetes mellitus with diabetic chronic kidney disease; I48.91 Unspecified atrial fibrillation; E03.9 Hypothyroidism, unspecified; E55.9 Vitamin D deficiency, unspecified; E53.8 Deficiency of other specified B group vitamins; K21.9 Gastro-esophageal reflux disease without esophagitis; E78.5 Hyperlipidemia, unspecified; M79.89 Other specified soft tissue disorders; Z79.4 Long term (current) use of insulin; Z79.899 Other long term (current) drug therapy; Z98.890 Other specified postprocedural states; Z93.59 Other cystostomy status ==

== ENCOUNTER 2020-03-10 04:45 | Emergency (ER) | payer MEDICARE ==
[~2020-03-10] VITALS: Ht 172.7 cm; Wt 108.9 kg
[2020-03-10 06:21] VITALS: BP 176/85
[2020-03-10 06:23] LABS: BASO % 0.4 % (0.0-1.0); EOS # 0.2 10*3/uL (0.0-0.4); EOS % 2.1 % (1.0-4.0); HEMATOCRIT 33.8 % (42.0-52.0); LYMPH # 0.6 10*3/uL (1.3-4.4); LYMPH % 8.3 % (27.0-41.0); MEAN CELL VOLUME 96.3 fl (80.0-94.0); MEAN CORPUSCULAR HGB 30.5 pg (27.0-31.0); MEAN CORPUSCULAR HGB CONC 31.7 g/dl (33.0-37.0); MEAN PLATELET VOLUME 9.8 fl (9.6-12.3); MONO # 0.5 10*3/uL (0.1-1.0); MONO % 7.3 % (3.0-9.0); NEUT # 5.7 10*3/uL (2.3-7.9); NEUT % 81.6 % (47.0-73.0); PLATELET COUNT AUTOMATED 146 10*3/uL (130-400); RED BLOOD COUNT 3.51 10*6/uL (4.50-5.90); RED CELL DISTRI WIDTH 14.3 % (0-14.5)
[2020-03-10 06:32] LABS: INTERNATIONAL NORM RATIO 1.2 (2.0-3.5)
[2020-03-10 06:39] LABS: ALBUMIN 3.5 gm/dl (3.1-4.5); CREATININE 10.9 mg/dL (0.70-1.30); TOTAL PROTEIN 7.3 gm/dL (6.4-8.2)
[2020-03-10 06:49] LABS: POTASSIUM 7.3 mmol/L (3.5-5.1); TROPONIN I 0.224 ng/ml (<0.045)
== END 2020-03-10 07:10 | disposition other institution (70) ==
LOC: ED 04:45
PROVIDERS: Emergency Medicine
DX: E87.5 Hyperkalemia (principal); N17.9 Acute kidney failure, unspecified; I13.2 Hypertensive heart and chronic kidney disease with heart failure and with stage 5 chronic kidney disease, or end stage renal disease; E11.22 Type 2 diabetes mellitus with diabetic chronic kidney disease; I50.9 Heart failure, unspecified; N18.6 End stage renal disease; E03.9 Hypothyroidism, unspecified; Z79.4 Long term (current) use of insulin; Z79.899 Other long term (current) drug therapy

== ENCOUNTER → 2020-05-04 | Outpatient (CLI) | payer MEDICARE ==
[2020-05-04 14:03] LABS: HEMATOCRIT 22.3 % (42.0-52.0); MEAN CELL VOLUME 101.4 fl (80.0-94.0); MEAN CORPUSCULAR HGB 30.5 pg (27.0-31.0); MEAN PLATELET VOLUME 9.3 fl (9.6-12.3); PLATELET COUNT AUTOMATED 183 10*3/uL (130-400); RED CELL DISTRI WIDTH 15.3 % (0-14.5); WHITE BLOOD COUNT 18.2 10*3/uL (4.8-10.8)
[2020-05-04 14:05] LABS: BASO % 0.2 % (0.0-1.0); LYMPH # 0.1 10*3/uL (1.3-4.4); LYMPH % 0.3 % (27.0-41.0); MONO % 5.5 % (3.0-9.0); NEUT # 16.7 10*3/uL (2.3-7.9); NEUT % 93.6 % (47.0-73.0)
[2020-05-04 14:21] LABS: ALBUMIN 3.1 gm/dl (3.1-4.5); CREATININE 3.07 mg/dL (0.70-1.30); POTASSIUM 5.6 mmol/L (3.5-5.1); TOTAL PROTEIN 6.7 gm/dL (6.4-8.2)
[2020-05-04 14:43] LABS: PLATELET SUFFICIENCY NORMAL (NORMAL); TOTAL CELLS COUNTED 100 #CELLS
[2020-05-04 15:09] LABS: MORPHOLOGY COMMENT N
== END | disposition home or self-care (01) ==
LOC: CT 13:00 → LAB 13:07
PROVIDERS: ATTEND Urology
DX: Z12.5 Encounter for screening for malignant neoplasm of prostate (principal); N20.0 Calculus of kidney; D40.0 Neoplasm of uncertain behavior of prostate; I10 Essential (primary) hypertension; R53.83 Other fatigue; J90 Pleural effusion, not elsewhere classified; K44.9 Diaphragmatic hernia without obstruction or gangrene; N26.1 Atrophy of kidney (terminal); M43.17 Spondylolisthesis, lumbosacral region; R91.8 Other nonspecific abnormal finding of lung field; Z94.0 Kidney transplant status

== ENCOUNTER → 2020-05-07 | Outpatient (CLI) | payer MEDICARE | END | disposition home or self-care (01) | LOC: RAD 09:12 | PROVIDERS: ATTEND Internal Medicine Nephrology | DX: M25.512 Pain in left shoulder (principal) ==

== ENCOUNTER → 2020-07-29 | Outpatient (CLI) | payer MEDICARE ==
[2020-07-29 15:49] LABS: BILIRUBIN Negative (Negative); BLOOD 3+ (Negative); CLARITY Cloudy (Clear); COLOR Yellow (Yellow); EOS # 0.1 10*3/uL (0.0-0.4); EOS % 3.7 % (1.0-4.0); GLUCOSE Negative (Negative); HEMATOCRIT 26.5 % (42.0-52.0); KETONE Negative (Negative); LEUKO ESTERASE 3+ (Negative); LYMPH # 0.1 10*3/uL (1.3-4.4); LYMPH % 2.3 % (27.0-41.0); MEAN CELL VOLUME 97.8 fl (80.0-94.0); MEAN CORPUSCULAR HGB 28.4 pg (27.0-31.0); MEAN CORPUSCULAR HGB CONC 29.1 g/dl (33.0-37.0); MEAN PLATELET VOLUME 9.7 fl (9.6-12.3); MONO # 0.6 10*3/uL (0.1-1.0); MONO % 18.4 % (3.0-9.0); NEUT # 2.2 10*3/uL (2.3-7.9); NEUT % 73.3 % (47.0-73.0); NITRITE Negative (Negative); PLATELET COUNT AUTOMATED 147 10*3/uL (130-400); RED BLOOD COUNT 2.71 10*6/uL (4.50-5.90); RED CELL DISTRI WIDTH 13.5 % (0-14.5); SPECIFIC GRAVITY 1.015 (1.001-1.030); UROBILINOGEN 0.2 E.U./dl (0.0-1.0)
[2020-07-29 16:07] LABS: ALBUMIN 3.2 gm/dl (3.1-4.5); CREATININE 3.01 mg/dL (0.70-1.30); POTASSIUM 5.7 mmol/L (3.5-5.1); TOTAL PROTEIN 6.7 gm/dL (6.4-8.2)
[2020-07-29 16:14] LABS: BACTERIA 4+; EPITHELIAL CELLS 0-2; RBC TNTC rbc/hpf (0-2); WBC TNTC wbc/hpf (0-5)
[2020-07-30 19:23] LABS: CREATININE,URINE 62.1 mg/dL (Not Estab.)
== END | disposition home or self-care (01) ==
LOC: RESCLI 00:50
PROVIDERS: Internal Medicine; ATTEND Internal Medicine Nephrology
DX: I12.9 Hypertensive chronic kidney disease with stage 1 through stage 4 chronic kidney disease, or unspecified chronic kidney disease (principal); E11.22 Type 2 diabetes mellitus with diabetic chronic kidney disease; N18.6 End stage renal disease; K21.9 Gastro-esophageal reflux disease without esophagitis; E78.5 Hyperlipidemia, unspecified; I48.91 Unspecified atrial fibrillation; R60.0 Localized edema; G89.29 Other chronic pain; M25.512 Pain in left shoulder; Z94.0 Kidney transplant status; Z79.899 Other long term (current) drug therapy; Z98.890 Other specified postprocedural states; Z98.49 Cataract extraction status, unspecified eye

== ENCOUNTER → 2020-08-05 | Outpatient (CLI) | payer MEDICARE | END | disposition home or self-care (01) | LOC: MRI 12:39 | PROVIDERS: ATTEND Internal Medicine | DX: S46.212A Strain of muscle, fascia and tendon of other parts of biceps, left arm, initial encounter (principal); S46.012A Strain of muscle(s) and tendon(s) of the rotator cuff of left shoulder, initial encounter; S43.432A Superior glenoid labrum lesion of left shoulder, initial encounter; M65.812 Other synovitis and tenosynovitis, left shoulder; M19.012 Primary osteoarthritis, left shoulder; M25.812 Other specified joint disorders, left shoulder; X58.XXXA Exposure to other specified factors, initial encounter; Y93.89 Activity, other specified; Y92.89 Other specified places as the place of occurrence of the external cause; Y99.8 Other external cause status ==

== ENCOUNTER → 2020-08-07 | Outpatient (CLI) | payer MEDICARE | END | disposition home or self-care (01) | LOC: CT 10:56 | PROVIDERS: ATTEND Internal Medicine | DX: J43.9 Emphysema, unspecified (principal); I51.7 Cardiomegaly; R91.8 Other nonspecific abnormal finding of lung field; N26.1 Atrophy of kidney (terminal); J18.1 Lobar pneumonia, unspecified organism; I25.10 Atherosclerotic heart disease of native coronary artery without angina pectoris ==

== ENCOUNTER → 2020-09-01 | Outpatient (CLI) | payer MEDICARE | END | disposition home or self-care (01) | LOC: CARD 11:39 | PROVIDERS: ATTEND Student in an Organized Health Care Education/Training Program | DX: I51.7 Cardiomegaly (principal) ==

== ENCOUNTER 2020-09-03 09:29 | Emergency (ER) | payer MEDICARE ==
[~2020-09-03] VITALS: Ht 172.7 cm; Wt 111.1 kg
[2020-09-03 09:37] VITALS: BP 139/34
[2020-09-03 09:59] LABS: BASO % 0.4 % (0.0-1.0); EOS # 0.1 10*3/uL (0.0-0.4); HEMATOCRIT 23.2 % (42.0-52.0); LYMPH # 0.1 10*3/uL (1.3-4.4); LYMPH % 4.8 % (27.0-41.0); MEAN CELL VOLUME 94.3 fl (80.0-94.0); MEAN CORPUSCULAR HGB 28.5 pg (27.0-31.0); MEAN CORPUSCULAR HGB CONC 30.2 g/dl (33.0-37.0); MEAN PLATELET VOLUME 9.3 fl (9.6-12.3); MONO # 0.4 10*3/uL (0.1-1.0); NEUT # 1.7 10*3/uL (2.3-7.9); NEUT % 74.4 % (47.0-73.0); PLATELET COUNT AUTOMATED 141 10*3/uL (130-400); RED BLOOD COUNT 2.46 10*6/uL (4.50-5.90); RED CELL DISTRI WIDTH 13.9 % (0-14.5); WHITE BLOOD COUNT 2.3 10*3/uL (4.8-10.8)
[2020-09-03 10:14] LABS: ALBUMIN 3.1 gm/dl (3.1-4.5); CREATININE 3.87 mg/dL (0.70-1.30); POTASSIUM 5.3 mmol/L (3.5-5.1); TOTAL PROTEIN 6.5 gm/dL (6.4-8.2)
== END 2020-09-03 10:45 | disposition home or self-care (01) ==
LOC: ED 09:29
PROVIDERS: Emergency Medicine
DX: E87.5 Hyperkalemia (principal); D64.9 Anemia, unspecified; I11.0 Hypertensive heart disease with heart failure; I50.9 Heart failure, unspecified; E11.9 Type 2 diabetes mellitus without complications; Z79.4 Long term (current) use of insulin; Z79.899 Other long term (current) drug therapy; Z98.890 Other specified postprocedural states; Z90.49 Acquired absence of other specified parts of digestive tract

== ENCOUNTER 2020-10-22 16:59 | Emergency (ER) | payer MEDICARE ==
[~2020-10-22] VITALS: Ht 172.7 cm; Wt 106.1 kg
[2020-10-22 17:03] VITALS: BP 136/45
== END 2020-10-22 18:33 | disposition home or self-care (01) ==
LOC: ED 16:59
DX: S80.11XA Contusion of right lower leg, initial encounter (principal); Z79.4 Long term (current) use of insulin; Z90.49 Acquired absence of other specified parts of digestive tract; Z79.899 Other long term (current) drug therapy; Z98.890 Other specified postprocedural states; W19.XXXA Unspecified fall, initial encounter; Y93.89 Activity, other specified; Y92.89 Other specified places as the place of occurrence of the external cause; Y99.8 Other external cause status

== ENCOUNTER 2020-12-30 15:35 | Emergency (ER) | payer MEDICARE ==
[~2020-12-30] VITALS: Wt 110.7 kg
[2020-12-30 15:35] VITALS: BP 159/51
[2020-12-30 15:59] LABS: BASO % 0.4 % (0.0-1.0); EOS % 0.8 % (1.0-4.0); HEMATOCRIT 33.9 % (42.0-52.0); LYMPH # 0.2 10*3/uL (1.3-4.4); LYMPH % 3.1 % (27.0-41.0); MEAN CELL VOLUME 96.3 fl (80.0-94.0); MEAN CORPUSCULAR HGB 29.3 pg (27.0-31.0); MEAN CORPUSCULAR HGB CONC 30.4 g/dl (33.0-37.0); MEAN PLATELET VOLUME 9.2 fl (9.6-12.3); MONO # 0.5 10*3/uL (0.1-1.0); MONO % 10.1 % (3.0-9.0); NEUT # 4.3 10*3/uL (2.3-7.9); NEUT % 83.9 % (47.0-73.0); PLATELET COUNT AUTOMATED 185 10*3/uL (130-400); RED BLOOD COUNT 3.52 10*6/uL (4.50-5.90); RED CELL DISTRI WIDTH 12.8 % (0-14.5); WHITE BLOOD COUNT 5.2 10*3/uL (4.8-10.8)
[2020-12-30 16:15] LABS: ALBUMIN 3.7 gm/dl (3.1-4.5); BUN 71 mg/dl (7-24); CHLORIDE 108 mmol/L (98-107); POTASSIUM 4.1 mmol/L (3.5-5.1); SGOT/AST 19 IU/L (3-35); SGPT/ALT 20 U/L (12-78); SODIUM 140 mmol/L (136-145); TOTAL PROTEIN 7.1 gm/dL (6.4-8.2)
[2020-12-30 16:17] LABS: ALKALINE PHOSPHATASE 133 U/L (45-117)
[2020-12-30 16:32] LABS: TROPONIN I < 0.015 ng/ml (<0.045)
== END 2020-12-30 17:51 | disposition home or self-care (01) ==
LOC: ED 15:35
PROVIDERS: Physician Assistant
DX: E16.2 Hypoglycemia, unspecified (principal); Z90.49 Acquired absence of other specified parts of digestive tract; Z98.890 Other specified postprocedural states; Z79.899 Other long term (current) drug therapy; Z79.4 Long term (current) use of insulin

== ENCOUNTER → 2021-02-04 | Outpatient (CLI) | payer MEDICARE ==
[2021-02-04 10:39] LABS: BASO % 0.5 % (0.0-1.0); EOS % 0.7 % (1.0-4.0); HEMATOCRIT 34.9 % (42.0-52.0); LYMPH # 0.2 10*3/uL (1.3-4.4); LYMPH % 3.1 % (27.0-41.0); MEAN CELL VOLUME 95.9 fl (80.0-94.0); MEAN CORPUSCULAR HGB 28.6 pg (27.0-31.0); MEAN CORPUSCULAR HGB CONC 29.8 g/dl (33.0-37.0); MEAN PLATELET VOLUME 9.4 fl (9.6-12.3); MONO # 0.5 10*3/uL (0.1-1.0); MONO % 8.3 % (3.0-9.0); NEUT # 4.9 10*3/uL (2.3-7.9); NEUT % 85.2 % (47.0-73.0); PLATELET COUNT AUTOMATED 237 10*3/uL (130-400); RED BLOOD COUNT 3.64 10*6/uL (4.50-5.90); RED CELL DISTRI WIDTH 12.4 % (0-14.5); WHITE BLOOD COUNT 5.8 10*3/uL (4.8-10.8)
[2021-02-04 10:46] LABS: BILIRUBIN Negative (Negative); BLOOD Negative (Negative); CLARITY Clear (Clear); COLOR Yellow (Yellow); GLUCOSE Negative (Negative); KETONE Negative (Negative); LEUKO ESTERASE 3+ (Negative); NITRITE Positive (Negative); SPECIFIC GRAVITY <= 1.005 (1.001-1.030); UROBILINOGEN 0.2 E.U./dl (0.0-1.0)
[2021-02-04 11:06] LABS: WBC 31-40 wbc/hpf (0-5)
[2021-02-04 11:19] LABS: ALBUMIN 3.1 gm/dl (3.1-4.5); CREATININE 2.91 mg/dL (0.70-1.30); FREE T4 1.15 ng/dl (0.76-1.46); POTASSIUM 4.5 mmol/L (3.5-5.1); TOTAL PROTEIN 7.1 gm/dL (6.4-8.2)
[2021-02-04 11:23] LABS: THYROID STIM HORMONE (HS) 1.64 uIU/ml (0.358-4.75)
[2021-02-04 11:26] LABS: VITAMIN D, 25-HYDROXY 51.6 ng/mL (30-100)
== END | disposition home or self-care (01) ==
LOC: US 01-22 10:00 → LAB 08:00 → US 10:00 → LAB 11:00
PROVIDERS: Internal Medicine; ATTEND Urology
DX: N18.6 End stage renal disease (principal); E10.65 Type 1 diabetes mellitus with hyperglycemia; E78.5 Hyperlipidemia, unspecified; E55.9 Vitamin D deficiency, unspecified; E04.9 Nontoxic goiter, unspecified

== ENCOUNTER 2021-03-15 10:47 | Emergency (ER) | payer MEDICARE ==
[~2021-03-15] VITALS: Ht 172.7 cm; Wt 118.4 kg
[2021-03-15 11:06] VITALS: BP 165/51
[2021-03-15] MEDS ORDERED: HYDROCODONE-AC1 EAC1 PO (15:12)
== END 2021-03-15 15:07 | disposition home or self-care (01) ==
LOC: ED 10:47
DX: M76.62 Achilles tendinitis, left leg (principal); Z79.899 Other long term (current) drug therapy

== ENCOUNTER 2021-03-18 09:31 | Emergency (ER) | payer MEDICARE ==
[~2021-03-18] VITALS: Wt 117.9 kg
[~2021-03-18 09:31] MED LIST changes: +HYDROCODONE-AC1 EAC1 PO
[2021-03-18 09:37] VITALS: BP 139/46
[2021-03-18 10:27] LABS: HEMATOCRIT 32.8 % (42.0-52.0); MEAN CELL VOLUME 94.3 fl (80.0-94.0); MEAN CORPUSCULAR HGB 28.4 pg (27.0-31.0); MEAN CORPUSCULAR HGB CONC 30.2 g/dl (33.0-37.0); MEAN PLATELET VOLUME 9.7 fl (9.6-12.3); PLATELET COUNT AUTOMATED 176 10*3/uL (130-400); RED BLOOD COUNT 3.48 10*6/uL (4.50-5.90); RED CELL DISTRI WIDTH 13.5 % (0-14.5); WHITE BLOOD COUNT 11.7 10*3/uL (4.8-10.8)
[2021-03-18 10:45] LABS: ALBUMIN 3.1 gm/dl (3.1-4.5); ALKALINE PHOSPHATASE 122 U/L (45-117); BUN 78 mg/dl (7-24); CHLORIDE 100 mmol/L (98-107); CREATININE 3.77 mg/dL (0.70-1.30); LIPASE 12 U/L (73-393); POTASSIUM 3.8 mmol/L (3.5-5.1); SGOT/AST 18 IU/L (3-35); SGPT/ALT 24 U/L (12-78); SODIUM 138 mmol/L (136-145); TOTAL PROTEIN 6.9 gm/dL (6.4-8.2)
[2021-03-18 10:46] LABS: TROPONIN I < 0.015 ng/ml (<0.045)
[2021-03-18 10:48] LABS: PLATELET SUFFICIENCY NORMAL (NORMAL); TOTAL CELLS COUNTED 100 #CELLS
[2021-03-18 10:59] LABS: BILIRUBIN Negative (Negative); BLOOD 2+ (Negative); CLARITY Turbid (Clear); COLOR Yellow (Yellow); GLUCOSE Negative (Negative); KETONE Negative (Negative); LEUKO ESTERASE 3+ (Negative); NITRITE Negative (Negative); PH 7.5 (4.5-8.0); SPECIFIC GRAVITY 1.015 (1.001-1.030)
[2021-03-18 11:12] LABS: BACTERIA 1+; WBC TNTC wbc/hpf (0-5)
[2021-03-18] MEDS ORDERED: MACROBID100 M1 PO (15:27)
== END 2021-03-18 15:14 | disposition home or self-care (01) ==
LOC: ED 09:31
PROVIDERS: Emergency Medicine
DX: N39.0 Urinary tract infection, site not specified (principal); N28.9 Disorder of kidney and ureter, unspecified; Z79.899 Other long term (current) drug therapy

== ENCOUNTER → 2021-04-19 | Outpatient (CLI) | payer MEDICARE ==
[~2021-04-19] MED LIST changes: +MACROBID100 M1 PO
== END | disposition home or self-care (01) ==
LOC: RESCLI 02:30
PROVIDERS: ATTEND Internal Medicine Nephrology
DX: E11.65 Type 2 diabetes mellitus with hyperglycemia (principal); K21.9 Gastro-esophageal reflux disease without esophagitis; I48.91 Unspecified atrial fibrillation; E03.9 Hypothyroidism, unspecified; I12.0 Hypertensive chronic kidney disease with stage 5 chronic kidney disease or end stage renal disease; N18.6 End stage renal disease; E78.5 Hyperlipidemia, unspecified; R60.0 Localized edema; Z94.0 Kidney transplant status; Z93.59 Other cystostomy status; Z79.899 Other long term (current) drug therapy; Z98.890 Other specified postprocedural states

== ENCOUNTER 2021-04-22 08:43 | Emergency (ER) | payer MEDICARE ==
[2021-04-22 08:53] VITALS: BP 126/52
[2021-04-22 09:25] LABS: HEMATOCRIT 34.9 % (42.0-52.0); MEAN CELL VOLUME 94.1 fl (80.0-94.0); MEAN CORPUSCULAR HGB 28.3 pg (27.0-31.0); MEAN CORPUSCULAR HGB CONC 30.1 g/dl (33.0-37.0); MEAN PLATELET VOLUME 9.5 fl (9.6-12.3); PLATELET COUNT AUTOMATED 194 10*3/uL (130-400); RED BLOOD COUNT 3.71 10*6/uL (4.50-5.90); RED CELL DISTRI WIDTH 13.8 % (0-14.5); WHITE BLOOD COUNT 7.2 10*3/uL (4.8-10.8)
[2021-04-22 09:37] LABS: ACT PARTIAL THROMBO TIME 43.4 SECONDS (20.0-32.1); INTERNATIONAL NORM RATIO 1.2 (2.0-3.5)
[2021-04-22 09:44] LABS: BASOPHILS 1 % (0-1); OVALOCYTES FEW; PLATELET SUFFICIENCY NORMAL (NORMAL); POLYCHROMASIA SLIGHT; TOTAL CELLS COUNTED 100 #CELLS
[2021-04-22 09:45] LABS: ALBUMIN 3.2 gm/dl (3.1-4.5); POTASSIUM 3.7 mmol/L (3.5-5.1); TOTAL PROTEIN 7.6 gm/dL (6.4-8.2)
== END 2021-04-22 14:11 | disposition home or self-care (01) ==
LOC: ED 08:43
PROVIDERS: Emergency Medicine
DX: U07.1 COVID-19 (principal); Z79.899 Other long term (current) drug therapy

== ENCOUNTER 2021-05-04 13:06 | Inpatient (IN) | payer MEDICARE ==
[~2021-05-04] VITALS: Ht 172.7 cm; Wt 117.9 kg
[2021-05-04 13:08] VITALS: BP 155/50
[2021-05-04 13:56] LABS: MEAN CELL VOLUME 92.7 fl (80.0-94.0); MEAN CORPUSCULAR HGB 27.8 pg (27.0-31.0); MEAN PLATELET VOLUME 8.8 fl (9.6-12.3); PLATELET COUNT AUTOMATED 357 10*3/uL (130-400); RED BLOOD COUNT 3.13 10*6/uL (4.50-5.90); RED CELL DISTRI WIDTH 13.6 % (0-14.5); WHITE BLOOD COUNT 4.5 10*3/uL (4.8-10.8)
[2021-05-04 14:13] LABS: CREATININE 2.9 mg/dL (0.70-1.30); POTASSIUM 3.5 mmol/L (3.5-5.1); TOTAL PROTEIN 6.9 gm/dL (6.4-8.2)
[2021-05-04 14:16] LABS: BASOPHILS 2 % (0-1); PLATELET SUFFICIENCY NORMAL (NORMAL); TOTAL CELLS COUNTED 100 #CELLS
[2021-05-04 14:37] VITALS: BP 142/53
[2021-05-04 15:17] LABS: BILIRUBIN Negative (Negative); BLOOD 1+ (Negative); CLARITY Turbid (Clear); COLOR Yellow (Yellow); GLUCOSE Negative (Negative); KETONE Negative (Negative); LEUKO ESTERASE 3+ (Negative); NITRITE Negative (Negative); PH 7.5 (4.5-8.0); SPECIFIC GRAVITY 1.015 (1.001-1.030); UROBILINOGEN 0.2 E.U./dl (0.0-1.0)
[2021-05-04 15:26] LABS: BACTERIA 3+
[2021-05-04 15:27] LABS: RBC 0-2 rbc/hpf (0-2)
[2021-05-04] MEDS ORDERED: SODIUM BICARBO650 MG PO (15:35)
[2021-05-04] MEDS ORDERED: LASIX40 MG PO (15:37)
[2021-05-04] MEDS ORDERED: LANTUS SOL100 UNIT/1 SC (15:37)
[2021-05-04] MEDS ORDERED: PREDNISONE5 MG PO (15:38)
[2021-05-04 18:15] VITALS: BP 135/57
[2021-05-04 19:48] VITALS: BP 127/65
[2021-05-04 22:00] VITALS: BP 149/74
[2021-05-05] MEDS ORDERED: MYCOPHENOLATE250 MG PO (01:19)
[2021-05-05] MEDS ORDERED: VELTASSA16.8 GM PO (01:25)
[2021-05-05 06:13] LABS: CREATININE 2.91 mg/dL (0.70-1.30); POTASSIUM 4.1 mmol/L (3.5-5.1); TOTAL PROTEIN 6.9 gm/dL (6.4-8.2)
[2021-05-05 06:18] LABS: HEMATOCRIT 29.6 % (42.0-52.0); MEAN CELL VOLUME 93.1 fl (80.0-94.0); MEAN CORPUSCULAR HGB 27.4 pg (27.0-31.0); MEAN CORPUSCULAR HGB CONC 29.4 g/dl (33.0-37.0); MEAN PLATELET VOLUME 9.5 fl (9.6-12.3); PLATELET COUNT AUTOMATED 372 10*3/uL (130-400); RED BLOOD COUNT 3.18 10*6/uL (4.50-5.90); RED CELL DISTRI WIDTH 13.4 % (0-14.5); WHITE BLOOD COUNT 3.5 10*3/uL (4.8-10.8)
[2021-05-05 07:51] LABS: BURR CELLS FEW; DOHLE BODIES FEW; OVALOCYTES FEW; PLATELET SUFFICIENCY NORMAL (NORMAL); POLYCHROMASIA SLIGHT; ROULEAUX SLIGHT; SCHISTOCYTES FEW; TOTAL CELLS COUNTED 100 #CELLS; TOXIC GRANULATION MODERATE
[2021-05-05 08:00] VITALS: BP 164/62
[2021-05-05] MEDS ORDERED: MEPRON750 MG/51 PO (11:17)
[2021-05-05 12:00] VITALS: BP 141/51
[2021-05-05 16:00] VITALS: BP 99/73
[2021-05-05 20:00] VITALS: BP 141/47
[2021-05-06] VITALS: BP 157/56
[2021-05-06 06:29] LABS: ALBUMIN 1.9 gm/dl (3.1-4.5); CREATININE 2.66 mg/dL (0.70-1.30); POTASSIUM 4.1 mmol/L (3.5-5.1); TOTAL PROTEIN 6.2 gm/dL (6.4-8.2)
[2021-05-06 06:45] LABS: HEMATOCRIT 29.8 % (42.0-52.0); MEAN CELL VOLUME 90.9 fl (80.0-94.0); MEAN CORPUSCULAR HGB 27.4 pg (27.0-31.0); MEAN CORPUSCULAR HGB CONC 30.2 g/dl (33.0-37.0); MEAN PLATELET VOLUME 9.6 fl (9.6-12.3); PLATELET COUNT AUTOMATED 378 10*3/uL (130-400); RED BLOOD COUNT 3.28 10*6/uL (4.50-5.90); RED CELL DISTRI WIDTH 13.4 % (0-14.5); WHITE BLOOD COUNT 3.9 10*3/uL (4.8-10.8)
[2021-05-06 07:57] LABS: PLATELET SUFFICIENCY NORMAL (NORMAL); TOTAL CELLS COUNTED 100 #CELLS
[2021-05-06 08:00] VITALS: BP 142/89
[2021-05-06 12:00] VITALS: BP 155/75
[2021-05-06 16:00] VITALS: BP 136/50
[2021-05-06 20:00] VITALS: BP 158/75
[2021-05-07] VITALS: BP 146/84
[2021-05-07 06:53] LABS: HEMATOCRIT 31.3 % (42.0-52.0); MEAN CELL VOLUME 90.5 fl (80.0-94.0); MEAN CORPUSCULAR HGB 27.2 pg (27.0-31.0); MEAN PLATELET VOLUME 9.4 fl (9.6-12.3); PLATELET COUNT AUTOMATED 411 10*3/uL (130-400); RED BLOOD COUNT 3.46 10*6/uL (4.50-5.90); RED CELL DISTRI WIDTH 13.4 % (0-14.5); WHITE BLOOD COUNT 4.8 10*3/uL (4.8-10.8)
[2021-05-07 07:03] LABS: CREATININE 2.54 mg/dL (0.70-1.30); TOTAL PROTEIN 6.2 gm/dL (6.4-8.2)
[2021-05-07 07:40] LABS: PLATELET SUFFICIENCY HIGH (NORMAL); TOTAL CELLS COUNTED 100 #CELLS
[2021-05-07] MEDS ORDERED: LEVOFLOXACIN750 M2 PO (09:59)
[2021-05-07] MEDS ORDERED: DECADRON6 M1 PO (09:59)
[2021-05-07] MEDS ORDERED: ROBITUSSIN DM 101 OZ PO (09:59)
== END 2021-05-07 13:09 | disposition home or self-care (01) | DRG 698 ==
LOC: ED 13:06 → 4E 14:51 → EDHOLD 14:51 → 4E 22:06
PROVIDERS: Internal Medicine; Student in an Organized Health Care Education/Training Program; ADMIT Family Medicine; ATTEND Family Medicine
PROC: XW033E5 Introduction of Remdesivir Anti-infective into Peripheral Vein, Percutaneous Approach, New Technology Group 5 (ICD-10-PCS; principal; 2021-05-06)
DX: T83.511A Infection and inflammatory reaction due to indwelling urethral catheter, initial encounter (principal); U07.1 COVID-19; J96.01 Acute respiratory failure with hypoxia; N17.0 Acute kidney failure with tubular necrosis; E44.0 Moderate protein-calorie malnutrition; I50.32 Chronic diastolic (congestive) heart failure; N39.0 Urinary tract infection, site not specified; K74.60 Unspecified cirrhosis of liver; I11.0 Hypertensive heart disease with heart failure; N40.0 Benign prostatic hyperplasia without lower urinary tract symptoms; I48.0 Paroxysmal atrial fibrillation; E11.65 Type 2 diabetes mellitus with hyperglycemia; E83.41 Hypermagnesemia; E03.9 Hypothyroidism, unspecified; D63.8 Anemia in other chronic diseases classified elsewhere; R74.01 Elevation of levels of liver transaminase levels; Y83.8 Other surgical procedures as the cause of abnormal reaction of the patient, or of later complication, without mention of misadventure at the time of the procedure; Y92.89 Other specified places as the place of occurrence of the external cause; Z79.4 Long term (current) use of insulin; Z90.49 Acquired absence of other specified parts of digestive tract; Z80.1 Family history of malignant neoplasm of trachea, bronchus and lung; Z82.49 Family history of ischemic heart disease and other diseases of the circulatory system; Z79.899 Other long term (current) drug therapy; Z68.38 Body mass index [BMI] 38.0-38.9, adult

== ENCOUNTER → 2021-05-11 | Outpatient (CLI) | payer MEDICARE ==
[~2021-05-11] MED LIST changes: +DECADRON6 M1 PO; +LANTUS SOL100 UNIT/1 SC; +LEVOFLOXACIN750 M2 PO; +MEPRON750 MG/51 PO; +MYCOPHENOLATE250 MG PO; +PREDNISONE5 MG PO; +ROBITUSSIN DM 101 OZ PO
[2021-05-11 10:01] LABS: BILIRUBIN Negative (Negative); BLOOD Trace-Lysed (Negative); CLARITY Clear (Clear); COLOR Yellow (Yellow); GLUCOSE Negative (Negative); KETONE Negative (Negative); LEUKO ESTERASE 3+ (Negative); NITRITE Negative (Negative); PH 6.5 (4.5-8.0); UROBILINOGEN 0.2 E.U./dl (0.0-1.0)
[2021-05-11 10:14] LABS: ALBUMIN 2.5 gm/dl (3.1-4.5); CREATININE 2.86 mg/dL (0.70-1.30); POTASSIUM 3.8 mmol/L (3.5-5.1); TOTAL PROTEIN 6.6 gm/dL (6.4-8.2)
[2021-05-11 10:15] LABS: FREE T4 1.17 ng/dl (0.76-1.46)
[2021-05-11 10:20] LABS: THYROID STIM HORMONE (HS) 3.33 uIU/ml (0.358-4.75)
[2021-05-11 10:44] LABS: VITAMIN D, 25-HYDROXY 58.5 ng/mL (30-100)
[2021-05-11 10:45] LABS: BACTERIA TRACE; WBC 51-100 wbc/hpf (0-5)
== END | disposition home or self-care (01) ==
LOC: LAB 09:29
PROVIDERS: ATTEND Internal Medicine
DX: E11.40 Type 2 diabetes mellitus with diabetic neuropathy, unspecified (principal); E55.9 Vitamin D deficiency, unspecified; E04.9 Nontoxic goiter, unspecified; E78.5 Hyperlipidemia, unspecified

== ENCOUNTER → 2021-07-19 | Outpatient (CLI) | payer MEDICARE | END | disposition home or self-care (01) | LOC: RESCLI 00:29 | PROVIDERS: ATTEND Internal Medicine Nephrology | DX: E11.65 Type 2 diabetes mellitus with hyperglycemia (principal); K21.9 Gastro-esophageal reflux disease without esophagitis; I48.91 Unspecified atrial fibrillation; E03.9 Hypothyroidism, unspecified; Z93.59 Other cystostomy status; I12.0 Hypertensive chronic kidney disease with stage 5 chronic kidney disease or end stage renal disease; N18.6 End stage renal disease; E78.5 Hyperlipidemia, unspecified; Z94.0 Kidney transplant status; R60.0 Localized edema; Z79.899 Other long term (current) drug therapy; Z98.890 Other specified postprocedural states ==

== ENCOUNTER → 2021-10-08 | Outpatient (CLI) | payer MEDICARE | END | disposition home or self-care (01) | LOC: RESCLI 10-04 13:08 | PROVIDERS: ATTEND Internal Medicine | DX: E11.22 Type 2 diabetes mellitus with diabetic chronic kidney disease (principal); E78.5 Hyperlipidemia, unspecified; Z94.0 Kidney transplant status; K21.9 Gastro-esophageal reflux disease without esophagitis; I12.0 Hypertensive chronic kidney disease with stage 5 chronic kidney disease or end stage renal disease; E03.9 Hypothyroidism, unspecified; N18.6 End stage renal disease; E11.65 Type 2 diabetes mellitus with hyperglycemia; R60.0 Localized edema; I48.91 Unspecified atrial fibrillation; Z93.59 Other cystostomy status; E55.9 Vitamin D deficiency, unspecified; Z79.899 Other long term (current) drug therapy ==

== ENCOUNTER → 2021-10-12 | Outpatient (CLI) | payer MEDICARE ==
[2021-10-12 09:23] LABS: BILIRUBIN Negative (Negative); BLOOD Trace-Intact (Negative); CLARITY Clear (Clear); COLOR Yellow (Yellow); GLUCOSE Trace (Negative); KETONE Negative (Negative); LEUKO ESTERASE 3+ (Negative); NITRITE Negative (Negative); PH 6.5 (4.5-8.0); SPECIFIC GRAVITY 1.015 (1.001-1.030); UROBILINOGEN 0.2 E.U./dl (0.0-1.0)
[2021-10-12 09:38] LABS: CREATININE 2.97 mg/dL (0.70-1.30); FREE T4 1.09 ng/dl (0.76-1.46); POTASSIUM 4.4 mmol/L (3.5-5.1); TOTAL PROTEIN 6.6 gm/dL (6.4-8.2)
[2021-10-12 09:43] LABS: THYROID STIM HORMONE (HS) 2.85 uIU/ml (0.358-4.75)
[2021-10-12 10:00] LABS: WBC 16-20 wbc/hpf (0-5)
[2021-10-12 10:38] LABS: VITAMIN D, 25-HYDROXY 54.8 ng/mL (30-100)
== END | disposition home or self-care (01) ==
LOC: LAB 08:55
PROVIDERS: ATTEND Internal Medicine
DX: E11.40 Type 2 diabetes mellitus with diabetic neuropathy, unspecified (principal); E78.5 Hyperlipidemia, unspecified; E10.65 Type 1 diabetes mellitus with hyperglycemia; E55.9 Vitamin D deficiency, unspecified; E04.9 Nontoxic goiter, unspecified

== ENCOUNTER → 2021-12-09 | Outpatient (CLI) | payer MEDICARE ==
[2021-12-09 10:10] LABS: BASO % 0.5 % (0.0-1.0); EOS # 0.1 10*3/uL (0.0-0.4); EOS % 1.6 % (1.0-4.0); HEMATOCRIT 38.2 % (42.0-52.0); LYMPH # 0.2 10*3/uL (1.3-4.4); LYMPH % 2.7 % (27.0-41.0); MEAN CORPUSCULAR HGB 28.4 pg (27.0-31.0); MEAN CORPUSCULAR HGB CONC 29.6 g/dl (33.0-37.0); MONO # 0.5 10*3/uL (0.1-1.0); MONO % 7.6 % (3.0-9.0); NEUT # 5.4 10*3/uL (2.3-7.9); NEUT % 87.1 % (47.0-73.0); PLATELET COUNT AUTOMATED 190 10*3/uL (130-400); RED BLOOD COUNT 3.98 10*6/uL (4.50-5.90); RED CELL DISTRI WIDTH 13.5 % (0-14.5); WHITE BLOOD COUNT 6.2 10*3/uL (4.8-10.8)
[2021-12-09 10:25] LABS: POTASSIUM 4.5 mmol/L (3.5-5.1); TOTAL PROTEIN 6.6 gm/dL (6.4-8.2)
== END | disposition home or self-care (01) ==
LOC: LAB 09:47
PROVIDERS: ATTEND Urology
DX: D40.0 Neoplasm of uncertain behavior of prostate (principal); R53.83 Other fatigue; Z12.5 Encounter for screening for malignant neoplasm of prostate

== ENCOUNTER → 2022-02-08 | Outpatient (CLI) | payer MEDICARE ==
[2022-02-08 08:55] LABS: BILIRUBIN Negative (Negative); BLOOD 1+ (Negative); CLARITY Cloudy (Clear); COLOR Yellow (Yellow); GLUCOSE Negative (Negative); KETONE Negative (Negative); LEUKO ESTERASE 3+ (Negative); NITRITE Positive (Negative); UROBILINOGEN 0.2 E.U./dl (0.0-1.0)
[2022-02-08 09:09] LABS: CREATININE 2.65 mg/dL (0.70-1.30); POTASSIUM 4.5 mmol/L (3.5-5.1); TOTAL PROTEIN 6.9 gm/dL (6.4-8.2)
[2022-02-08 13:58] LABS: BACTERIA 3+; WBC TNTC wbc/hpf (0-5)
== END ==
LOC: LAB 08:31
PROVIDERS: ATTEND Internal Medicine
DX: E10.9 Type 1 diabetes mellitus without complications (principal); E78.5 Hyperlipidemia, unspecified

== ENCOUNTER → 2022-02-22 | Outpatient (CLI) | payer MEDICARE | END | disposition home or self-care (01) | LOC: RESCLI 08:52 | PROVIDERS: ATTEND Internal Medicine | DX: I12.0 Hypertensive chronic kidney disease with stage 5 chronic kidney disease or end stage renal disease (principal); E11.21 Type 2 diabetes mellitus with diabetic nephropathy; N18.6 End stage renal disease; E11.65 Type 2 diabetes mellitus with hyperglycemia; I48.91 Unspecified atrial fibrillation; E03.9 Hypothyroidism, unspecified; K21.9 Gastro-esophageal reflux disease without esophagitis; E55.9 Vitamin D deficiency, unspecified; M16.11 Unilateral primary osteoarthritis, right hip; I70.201 Unspecified atherosclerosis of native arteries of extremities, right leg; E78.5 Hyperlipidemia, unspecified; Z94.0 Kidney transplant status; G62.9 Polyneuropathy, unspecified; G89.29 Other chronic pain; R60.0 Localized edema; Z93.59 Other cystostomy status; M25.551 Pain in right hip; Z98.890 Other specified postprocedural states; Z79.899 Other long term (current) drug therapy ==

== ENCOUNTER → 2022-03-01 | Outpatient (CLI) | payer MEDICARE | END | disposition home or self-care (01) | LOC: RESCLI 01:57 | PROVIDERS: ATTEND Internal Medicine | DX: I12.9 Hypertensive chronic kidney disease with stage 1 through stage 4 chronic kidney disease, or unspecified chronic kidney disease (principal); E11.21 Type 2 diabetes mellitus with diabetic nephropathy; I48.91 Unspecified atrial fibrillation; E03.9 Hypothyroidism, unspecified; N18.6 End stage renal disease; K21.9 Gastro-esophageal reflux disease without esophagitis; E78.5 Hyperlipidemia, unspecified; G62.9 Polyneuropathy, unspecified; G89.29 Other chronic pain; Z94.0 Kidney transplant status; M25.551 Pain in right hip; E66.01 Morbid (severe) obesity due to excess calories; E11.65 Type 2 diabetes mellitus with hyperglycemia; R60.0 Localized edema; Z93.59 Other cystostomy status; E55.9 Vitamin D deficiency, unspecified; Z98.890 Other specified postprocedural states; Z79.899 Other long term (current) drug therapy ==

== ENCOUNTER → 2022-03-18 | Outpatient (CLI) | payer MEDICARE ==
[2022-03-18 08:44] LABS: BASO % 0.4 % (0.0-1.0); EOS # 0.2 10*3/uL (0.0-0.4); EOS % 2.1 % (1.0-4.0); HEMATOCRIT 40.8 % (42.0-52.0); LYMPH # 0.2 10*3/uL (1.3-4.4); MEAN CELL VOLUME 93.4 fl (80.0-94.0); MEAN CORPUSCULAR HGB 28.1 pg (27.0-31.0); MEAN CORPUSCULAR HGB CONC 30.1 g/dl (33.0-37.0); MEAN PLATELET VOLUME 9.7 fl (9.6-12.3); MONO # 0.6 10*3/uL (0.1-1.0); NEUT % 84.8 % (47.0-73.0); PLATELET COUNT AUTOMATED 207 10*3/uL (130-400); RED BLOOD COUNT 4.37 10*6/uL (4.50-5.90); RED CELL DISTRI WIDTH 13.6 % (0-14.5); WHITE BLOOD COUNT 7.1 10*3/uL (4.8-10.8)
[2022-03-18 09:00] LABS: CREATININE 2.61 mg/dL (0.70-1.30); POTASSIUM 4.6 mmol/L (3.5-5.1); TOTAL PROTEIN 6.9 gm/dL (6.4-8.2)
== END | disposition home or self-care (01) ==
LOC: LAB 08:16
PROVIDERS: ATTEND Urology
DX: Z12.5 Encounter for screening for malignant neoplasm of prostate (principal); D40.0 Neoplasm of uncertain behavior of prostate; R53.83 Other fatigue

== ENCOUNTER → 2022-03-31 | Outpatient (CLI) | payer MEDICARE | END | disposition home or self-care (01) | LOC: RESCLI 00:55 | PROVIDERS: ATTEND Emergency Medicine | DX: I12.0 Hypertensive chronic kidney disease with stage 5 chronic kidney disease or end stage renal disease (principal); E11.21 Type 2 diabetes mellitus with diabetic nephropathy; N18.6 End stage renal disease; E55.9 Vitamin D deficiency, unspecified; I48.91 Unspecified atrial fibrillation; E78.5 Hyperlipidemia, unspecified; E03.9 Hypothyroidism, unspecified; E66.01 Morbid (severe) obesity due to excess calories; K21.9 Gastro-esophageal reflux disease without esophagitis; G89.29 Other chronic pain; G62.9 Polyneuropathy, unspecified; Z94.0 Kidney transplant status; Z79.4 Long term (current) use of insulin; I25.10 Atherosclerotic heart disease of native coronary artery without angina pectoris; M48.062 Spinal stenosis, lumbar region with neurogenic claudication; R60.0 Localized edema; Z98.890 Other specified postprocedural states; Z82.49 Family history of ischemic heart disease and other diseases of the circulatory system; Z79.899 Other long term (current) drug therapy ==

== ENCOUNTER → 2022-04-08 | Outpatient (CLI) | payer MEDICARE | END | disposition home or self-care (01) | LOC: WOUNDCARE 11:22 | PROVIDERS: ATTEND Surgery Vascular Surgery | DX: E11.621 Type 2 diabetes mellitus with foot ulcer (principal); L97.511 Non-pressure chronic ulcer of other part of right foot limited to breakdown of skin; L84 Corns and callosities; E11.65 Type 2 diabetes mellitus with hyperglycemia; N40.0 Benign prostatic hyperplasia without lower urinary tract symptoms; I12.0 Hypertensive chronic kidney disease with stage 5 chronic kidney disease or end stage renal disease; N18.6 End stage renal disease; E66.9 Obesity, unspecified; I48.91 Unspecified atrial fibrillation; K74.60 Unspecified cirrhosis of liver; Z68.41 Body mass index [BMI] 40.0-44.9, adult; Z87.891 Personal history of nicotine dependence ==

== ENCOUNTER 2022-04-12 14:38 | Emergency (ER) | payer MEDICARE ==
[~2022-04-12] VITALS: Ht 172.7 cm; Wt 131.5 kg
[~2022-04-12 14:38] MED LIST changes: -CIPROFLOXACIN500 M4 PO; -MAGNESIUM OXID400 MG PO; -VITAMIN B121000 MC1 PO; -VITAMIN D325 MCG PO
[2022-04-12 14:49] VITALS: BP 153/68
[2022-04-13] MEDS ORDERED: MAGNESIUM OXID400 MG PO (11:28)
[2022-04-13] MEDS ORDERED: VITAMIN D325 MCG PO (11:31)
[2022-04-13] MEDS ORDERED: CIPROFLOXACIN500 M4 PO (11:32)
[2022-04-13] MEDS ORDERED: SODIUM BICARBO650 MG PO (11:35)
[2022-04-13] MEDS ORDERED: VITAMIN B121000 MC1 PO (11:36)
[2022-04-20] MEDS ORDERED: KIMYRSA1200 MG IV (18:13)
[2022-04-20] MEDS ORDERED: PREMIERPRO RX ME1 GM IV ×2 (18:13)
[2022-04-21] MEDS ORDERED: PIPERACIL-TAZO4.5 G1 IV (13:54)
== END 2022-04-12 15:51 | disposition left against medical advice (07) ==
LOC: ED 14:38
DX: L03.115 Cellulitis of right lower limb (principal); E11.9 Type 2 diabetes mellitus without complications; Z79.899 Other long term (current) drug therapy; Z79.2 Long term (current) use of antibiotics; Z79.4 Long term (current) use of insulin; Z98.890 Other specified postprocedural states; Z90.49 Acquired absence of other specified parts of digestive tract; Z94.0 Kidney transplant status

== ENCOUNTER → 2022-04-12 | Outpatient (CLI) | payer MEDICARE ==
[~2022-04-12] MED LIST changes: +CIPROFLOXACIN500 M4 PO; +MAGNESIUM OXID400 MG PO; +VITAMIN B121000 MC1 PO; +VITAMIN D325 MCG PO
== END | disposition home or self-care (01) ==
LOC: WOUNDCARE 01:05
PROVIDERS: ATTEND Nurse Practitioner Family
DX: E11.621 Type 2 diabetes mellitus with foot ulcer (principal); L97.511 Non-pressure chronic ulcer of other part of right foot limited to breakdown of skin; L03.90 Cellulitis, unspecified; E11.65 Type 2 diabetes mellitus with hyperglycemia; E11.22 Type 2 diabetes mellitus with diabetic chronic kidney disease; I12.0 Hypertensive chronic kidney disease with stage 5 chronic kidney disease or end stage renal disease; N18.6 End stage renal disease; E66.9 Obesity, unspecified; N40.0 Benign prostatic hyperplasia without lower urinary tract symptoms; K74.60 Unspecified cirrhosis of liver; I48.91 Unspecified atrial fibrillation; Z87.891 Personal history of nicotine dependence

== ENCOUNTER → 2022-05-02 | Outpatient (CLI) | payer MEDICARE ==
[~2022-05-02] MED LIST changes: +CIPROFLOXACIN500 M4 PO; +ERTAPENEM1 GM IV; +GABAPENTIN100 M2 PO; +KIMYRSA1200 MG IV; +Lantus SC; +MAGNESIUM OXID400 MG PO; +PIPERACIL-TAZO4.5 G1 IV; +PREMIERPRO RX ME1 GM IV; +VITAMIN B121000 MC1 PO; +VITAMIN D325 MCG PO
== END | disposition home or self-care (01) ==
LOC: WOUNDCARE 02:13
PROVIDERS: ATTEND Nurse Practitioner Family
DX: E11.621 Type 2 diabetes mellitus with foot ulcer (principal); L97.512 Non-pressure chronic ulcer of other part of right foot with fat layer exposed; E11.65 Type 2 diabetes mellitus with hyperglycemia; E11.69 Type 2 diabetes mellitus with other specified complication; M86.171 Other acute osteomyelitis, right ankle and foot; E11.22 Type 2 diabetes mellitus with diabetic chronic kidney disease; I12.0 Hypertensive chronic kidney disease with stage 5 chronic kidney disease or end stage renal disease; N18.6 End stage renal disease; N40.0 Benign prostatic hyperplasia without lower urinary tract symptoms; E66.9 Obesity, unspecified; I48.91 Unspecified atrial fibrillation; K74.60 Unspecified cirrhosis of liver; Z87.891 Personal history of nicotine dependence

== ENCOUNTER → 2022-07-13 | Outpatient (CLI) | payer MEDICARE ==
[2022-07-13 08:28] LABS: BASO % 0.4 % (0.0-1.0); EOS # 0.1 10*3/uL (0.0-0.4); EOS % 1.9 % (1.0-4.0); HEMATOCRIT 38.7 % (42.0-52.0); LYMPH # 0.2 10*3/uL (1.3-4.4); LYMPH % 3.2 % (27.0-41.0); MEAN CORPUSCULAR HGB 27.4 pg (27.0-31.0); MEAN CORPUSCULAR HGB CONC 30.5 g/dl (33.0-37.0); MEAN PLATELET VOLUME 9.2 fl (9.6-12.3); MONO # 0.4 10*3/uL (0.1-1.0); MONO % 5.7 % (3.0-9.0); NEUT # 6.6 10*3/uL (2.3-7.9); PLATELET COUNT AUTOMATED 217 10*3/uL (130-400); RED CELL DISTRI WIDTH 14.6 % (0-14.5); WHITE BLOOD COUNT 7.5 10*3/uL (4.8-10.8)
[2022-07-13 08:42] LABS: POTASSIUM 4.2 mmol/L (3.4-5.1); TOTAL PROTEIN 6.4 gm/dL (6.0-8.0)
== END | disposition home or self-care (01) ==
LOC: LAB 08:03
PROVIDERS: ATTEND Urology
DX: R53.83 Other fatigue (principal); Z12.5 Encounter for screening for malignant neoplasm of prostate

== ENCOUNTER → 2022-08-10 | Outpatient (CLI) | payer MEDICARE ==
[2022-08-10 09:36] LABS: BASO % 0.4 % (0.0-1.0); EOS # 0.1 10*3/uL (0.0-0.4); EOS % 0.8 % (1.0-4.0); HEMATOCRIT 38.3 % (42.0-52.0); LYMPH # 0.3 10*3/uL (1.3-4.4); LYMPH % 3.4 % (27.0-41.0); MEAN CELL VOLUME 92.7 fl (80.0-94.0); MEAN CORPUSCULAR HGB 27.1 pg (27.0-31.0); MEAN CORPUSCULAR HGB CONC 29.2 g/dl (33.0-37.0); MEAN PLATELET VOLUME 9.4 fl (9.6-12.3); MONO # 0.6 10*3/uL (0.1-1.0); MONO % 6.6 % (3.0-9.0); NEUT # 8.3 10*3/uL (2.3-7.9); NEUT % 88.3 % (47.0-73.0); PLATELET COUNT AUTOMATED 205 10*3/uL (130-400); RED BLOOD COUNT 4.13 10*6/uL (4.50-5.90); WHITE BLOOD COUNT 9.5 10*3/uL (4.8-10.8)
[2022-08-10 09:51] LABS: POTASSIUM 4.4 mmol/L (3.4-5.1); TOTAL PROTEIN 6.4 gm/dL (6.0-8.0)
== END | disposition home or self-care (01) ==
LOC: LAB 09:02
PROVIDERS: ATTEND Urology
DX: Z12.5 Encounter for screening for malignant neoplasm of prostate (principal); R53.83 Other fatigue

== ENCOUNTER → 2022-09-15 | Outpatient (CLI) | payer MEDICARE ==
[2022-09-15 10:17] LABS: BASO % 0.4 % (0.0-1.0); EOS # 0.1 10*3/uL (0.0-0.4); EOS % 1.6 % (1.0-4.0); HEMATOCRIT 39.4 % (42.0-52.0); LYMPH # 0.2 10*3/uL (1.3-4.4); MEAN CELL VOLUME 91.8 fl (80.0-94.0); MEAN CORPUSCULAR HGB CONC 30.5 g/dl (33.0-37.0); MEAN PLATELET VOLUME 9.7 fl (9.6-12.3); MONO # 0.4 10*3/uL (0.1-1.0); MONO % 5.9 % (3.0-9.0); NEUT # 6.6 10*3/uL (2.3-7.9); NEUT % 88.4 % (47.0-73.0); PLATELET COUNT AUTOMATED 209 10*3/uL (130-400); RED BLOOD COUNT 4.29 10*6/uL (4.50-5.90); WHITE BLOOD COUNT 7.4 10*3/uL (4.8-10.8)
[2022-09-15 10:36] LABS: URIC ACID 7.1 mg/dL (3.7-9.2)
[2022-09-15 10:39] LABS: POTASSIUM 3.9 mmol/L (3.4-5.1); TOTAL PROTEIN 6.6 gm/dL (6.0-8.0)
[2022-09-15 11:29] LABS: VITAMIN D, 25-HYDROXY 47.2 ng/mL (30-100)
[2022-09-17 12:07] LABS: BK QUANTITATION PCR Negative (Negative)
== END | disposition home or self-care (01) ==
LOC: LAB 09:29
PROVIDERS: Internal Medicine Nephrology; ATTEND Urology
DX: D40.0 Neoplasm of uncertain behavior of prostate (principal); R53.83 Other fatigue; N25.81 Secondary hyperparathyroidism of renal origin; B97.89 Other viral agents as the cause of diseases classified elsewhere; D63.1 Anemia in chronic kidney disease; Z94.0 Kidney transplant status

== ENCOUNTER → 2022-09-26 | Outpatient (CLI) | payer MEDICARE | END | disposition home or self-care (01) | LOC: US 01:36 | PROVIDERS: ATTEND Urology | DX: N18.6 End stage renal disease (principal); N13.30 Unspecified hydronephrosis ==

== ENCOUNTER → 2022-10-04 | Outpatient (CLI) | payer MEDICARE | END | disposition home or self-care (01) | LOC: RESCLI 01:23 | PROVIDERS: ATTEND Family Medicine | DX: I13.2 Hypertensive heart and chronic kidney disease with heart failure and with stage 5 chronic kidney disease, or end stage renal disease (principal); I50.9 Heart failure, unspecified; N18.6 End stage renal disease; E11.21 Type 2 diabetes mellitus with diabetic nephropathy; E11.22 Type 2 diabetes mellitus with diabetic chronic kidney disease; E11.621 Type 2 diabetes mellitus with foot ulcer; I25.10 Atherosclerotic heart disease of native coronary artery without angina pectoris; E78.5 Hyperlipidemia, unspecified; K21.9 Gastro-esophageal reflux disease without esophagitis; E03.9 Hypothyroidism, unspecified; L97.509 Non-pressure chronic ulcer of other part of unspecified foot with unspecified severity; Z79.4 Long term (current) use of insulin; Z79.899 Other long term (current) drug therapy; Z87.891 Personal history of nicotine dependence; Z94.0 Kidney transplant status ==

== ENCOUNTER 2022-10-19 11:39 | Inpatient (IN) | payer MEDICARE ==
[~2022-10-19] VITALS: Ht 172.7 cm; Wt 125.2 kg
[2022-10-19 11:50] VITALS: BP 144/64
[2022-10-19 12:11] LABS: BASO # 0.1 10*3/uL (0.0-0.1); BASO % 0.5 % (0.0-1.0); EOS # 0.1 10*3/uL (0.0-0.4); HEMATOCRIT 38.9 % (42.0-52.0); LYMPH # 0.2 10*3/uL (1.3-4.4); LYMPH % 1.7 % (27.0-41.0); MEAN CELL VOLUME 94.2 fl (80.0-94.0); MEAN CORPUSCULAR HGB 29.3 pg (27.0-31.0); MEAN CORPUSCULAR HGB CONC 31.1 g/dl (33.0-37.0); MEAN PLATELET VOLUME 9.5 fl (9.6-12.3); MONO # 0.7 10*3/uL (0.1-1.0); MONO % 6.2 % (3.0-9.0); NEUT # 9.6 10*3/uL (2.3-7.9); PLATELET COUNT AUTOMATED 255 10*3/uL (130-400); RED BLOOD COUNT 4.13 10*6/uL (4.50-5.90); RED CELL DISTRI WIDTH 13.5 % (0-14.5); WHITE BLOOD COUNT 10.7 10*3/uL (4.8-10.8)
[2022-10-19 12:16] LABS: BILIRUBIN Negative (Negative); BLOOD 3+ (Negative); CLARITY Turbid (Clear); COLOR Yellow (Yellow); GLUCOSE Negative (Negative); KETONE Negative (Negative); LEUKO ESTERASE 3+ (Negative); NITRITE Positive (Negative); UROBILINOGEN 0.2 E.U./dl (0.0-1.0)
[2022-10-19 12:21] LABS: ACT PARTIAL THROMBO TIME 38.2 SECONDS (20.0-32.1); INTERNATIONAL NORM RATIO 1.2 (2.0-3.5)
[2022-10-19 12:30] LABS: WBC 21-30 wbc/hpf (0-5)
[2022-10-19 12:31] LABS: BACTERIA 4+; RBC 21-30 rbc/hpf (0-2)
[2022-10-19 12:40] LABS: ALKALINE PHOSPHATASE 83 U/L (46-116); BUN 40 mg/dl (9-23); CHLORIDE 106 mmol/L (98-107)
[2022-10-19 12:44] LABS: SGPT/ALT < 7 U/L (10-49)
[2022-10-19] MEDS ORDERED: AMLODIPINE BESYL5 MG PO (14:04)
[2022-10-19] MEDS ORDERED: SODIUM BICARBO650 MG PO (14:05)
[2022-10-19] MEDS ORDERED: PREDNISONE5 MG PO (14:06)
[2022-10-19 14:49] VITALS: BP 141/54
[2022-10-19 17:30] VITALS: BP 149/62
[2022-10-19 17:55] VITALS: BP 132/52
[2022-10-19 20:00] VITALS: BP 140/56; BP 150/42
[2022-10-20] VITALS: BP 148/34
[2022-10-20 07:14] LABS: HEMATOCRIT 38.9 % (42.0-52.0); MEAN CELL VOLUME 92.6 fl (80.0-94.0); MEAN CORPUSCULAR HGB 28.6 pg (27.0-31.0); MEAN CORPUSCULAR HGB CONC 30.8 g/dl (33.0-37.0); MEAN PLATELET VOLUME 9.8 fl (9.6-12.3); PLATELET COUNT AUTOMATED 254 10*3/uL (130-400); RED CELL DISTRI WIDTH 13.4 % (0-14.5)
[2022-10-20 07:20] LABS: MANUAL DIFF REFLEX YES
[2022-10-20 07:55] LABS: BURR CELLS FEW; OVALOCYTES FEW; PLATELET SUFFICIENCY NORMAL (NORMAL); POLYCHROMASIA SLIGHT; SCHISTOCYTES FEW; TOTAL CELLS COUNTED 100 #CELLS; TOXIC GRANULATION SLIGHT
[2022-10-20 08:00] VITALS: BP 155/78
[2022-10-20 08:01] LABS: FREE T4 0.96 ng/dl (0.89-1.76); TOTAL PROTEIN 6.5 gm/dL (6.0-8.0)
[2022-10-20 08:03] LABS: THYROID STIM HORMONE (HS) 0.642 uIU/ml (0.550-4.780); VITAMIN D, 25-HYDROXY 49.3 ng/mL (30-100)
[2022-10-20 12:00] VITALS: BP 147/58
[2022-10-20 16:00] VITALS: BP 138/70
[2022-10-20 20:00] VITALS: BP 143/55
[2022-10-21] VITALS: BP 139/63
[2022-10-21 06:31] LABS: HEMATOCRIT 38.2 % (42.0-52.0); MEAN CELL VOLUME 93.6 fl (80.0-94.0); MEAN CORPUSCULAR HGB 28.4 pg (27.0-31.0); MEAN CORPUSCULAR HGB CONC 30.4 g/dl (33.0-37.0); MEAN PLATELET VOLUME 9.6 fl (9.6-12.3); PLATELET COUNT AUTOMATED 259 10*3/uL (130-400); RED BLOOD COUNT 4.08 10*6/uL (4.50-5.90); RED CELL DISTRI WIDTH 13.6 % (0-14.5); WHITE BLOOD COUNT 14.6 10*3/uL (4.8-10.8)
[2022-10-21 06:32] LABS: MANUAL DIFF REFLEX YES
[2022-10-21 06:54] LABS: POTASSIUM 4.4 mmol/L (3.4-5.1)
[2022-10-21 07:37] LABS: BURR CELLS FEW; OVALOCYTES FEW; PLATELET SUFFICIENCY NORMAL (NORMAL); TOTAL CELLS COUNTED 100 #CELLS
[2022-10-21 08:00] VITALS: BP 138/54
[2022-10-21] MEDS ORDERED: MUCUS RELIEF600 MG PO (10:42)
[2022-10-21] MEDS ORDERED: CIPRO500 MG PO ×2 (10:42→16:36)
== END 2022-10-21 11:40 | disposition home or self-care (01) | DRG 698 ==
LOC: ED 11:39 → EDHOLD 13:58 → 4E 13:58 → EDHOLD 14:42 → 4E 16:55
PROVIDERS: Internal Medicine; ADMIT Internal Medicine; ATTEND Internal Medicine
DX: T83.511A Infection and inflammatory reaction due to indwelling urethral catheter, initial encounter (principal); J18.9 Pneumonia, unspecified organism; N18.4 Chronic kidney disease, stage 4 (severe); I13.0 Hypertensive heart and chronic kidney disease with heart failure and stage 1 through stage 4 chronic kidney disease, or unspecified chronic kidney disease; I50.32 Chronic diastolic (congestive) heart failure; K74.60 Unspecified cirrhosis of liver; Y84.6 Urinary catheterization as the cause of abnormal reaction of the patient, or of later complication, without mention of misadventure at the time of the procedure; N39.0 Urinary tract infection, site not specified; D53.9 Nutritional anemia, unspecified; R31.9 Hematuria, unspecified; E11.22 Type 2 diabetes mellitus with diabetic chronic kidney disease; N40.0 Benign prostatic hyperplasia without lower urinary tract symptoms; E03.9 Hypothyroidism, unspecified; I48.0 Paroxysmal atrial fibrillation; Y92.89 Other specified places as the place of occurrence of the external cause; Z79.4 Long term (current) use of insulin; Z80.1 Family history of malignant neoplasm of trachea, bronchus and lung; Z79.899 Other long term (current) drug therapy; Z90.49 Acquired absence of other specified parts of digestive tract

== ENCOUNTER → 2022-11-07 | Outpatient (CLI) | payer MEDICARE ==
[~2022-11-07] MED LIST changes: +AMLODIPINE BESYL5 MG PO; +CIPRO500 MG PO; +MUCUS RELIEF600 MG PO
[2022-11-07 08:46] LABS: BASO % 0.4 % (0.0-1.0); EOS # 0.1 10*3/uL (0.0-0.4); EOS % 0.8 % (1.0-4.0); HEMATOCRIT 41.8 % (42.0-52.0); LYMPH # 0.3 10*3/uL (1.3-4.4); LYMPH % 3.9 % (27.0-41.0); MEAN CELL VOLUME 94.4 fl (80.0-94.0); MEAN CORPUSCULAR HGB 28.7 pg (27.0-31.0); MEAN CORPUSCULAR HGB CONC 30.4 g/dl (33.0-37.0); MEAN PLATELET VOLUME 10.2 fl (9.6-12.3); MONO # 0.7 10*3/uL (0.1-1.0); MONO % 9.2 % (3.0-9.0); NEUT # 6.7 10*3/uL (2.3-7.9); NEUT % 84.2 % (47.0-73.0); PLATELET COUNT AUTOMATED 206 10*3/uL (130-400); RED BLOOD COUNT 4.43 10*6/uL (4.50-5.90); RED CELL DISTRI WIDTH 13.3 % (0-14.5)
[2022-11-07 09:00] LABS: POTASSIUM 4.3 mmol/L (3.4-5.1); TOTAL PROTEIN 6.3 gm/dL (6.0-8.0)
== END | disposition home or self-care (01) ==
LOC: LAB 08:06
PROVIDERS: ATTEND Urology
DX: Z12.5 Encounter for screening for malignant neoplasm of prostate (principal); D40.0 Neoplasm of uncertain behavior of prostate; R53.83 Other fatigue

== ENCOUNTER → 2022-11-08 | Outpatient (CLI) | payer MEDICARE | END | disposition home or self-care (01) | LOC: WOUNDCARE 05-09 02:09 → RESCLI 02:34 | PROVIDERS: ATTEND Internal Medicine | DX: I13.2 Hypertensive heart and chronic kidney disease with heart failure and with stage 5 chronic kidney disease, or end stage renal disease (principal); E11.22 Type 2 diabetes mellitus with diabetic chronic kidney disease; N18.6 End stage renal disease; I50.9 Heart failure, unspecified; E11.21 Type 2 diabetes mellitus with diabetic nephropathy; I48.91 Unspecified atrial fibrillation; E03.9 Hypothyroidism, unspecified; E66.01 Morbid (severe) obesity due to excess calories; Z68.41 Body mass index [BMI] 40.0-44.9, adult; K21.9 Gastro-esophageal reflux disease without esophagitis; E55.9 Vitamin D deficiency, unspecified; E78.5 Hyperlipidemia, unspecified; G89.29 Other chronic pain; G62.9 Polyneuropathy, unspecified; Z94.0 Kidney transplant status; E11.65 Type 2 diabetes mellitus with hyperglycemia; M25.551 Pain in right hip; M48.062 Spinal stenosis, lumbar region with neurogenic claudication; M86.9 Osteomyelitis, unspecified; L97.509 Non-pressure chronic ulcer of other part of unspecified foot with unspecified severity; M86.60 Other chronic osteomyelitis, unspecified site; R60.0 Localized edema; Z98.890 Other specified postprocedural states; Z79.899 Other long term (current) drug therapy ==

== ENCOUNTER → 2022-11-10 | Outpatient (CLI) | payer MEDICARE ==
[2022-11-10 10:55] LABS: BILIRUBIN Negative (Negative); BLOOD 1+ (Negative); CLARITY Cloudy (Clear); COLOR Yellow (Yellow); GLUCOSE Negative (Negative); KETONE Negative (Negative); LEUKO ESTERASE 3+ (Negative); NITRITE Positive (Negative); SPECIFIC GRAVITY 1.015 (1.001-1.030); UROBILINOGEN 0.2 E.U./dl (0.0-1.0)
[2022-11-10 11:35] LABS: FREE T4 1.03 ng/dl (0.89-1.76); POTASSIUM 4.4 mmol/L (3.4-5.1); THYROID STIM HORMONE (HS) 1.624 uIU/ml (0.550-4.780); TOTAL PROTEIN 6.2 gm/dL (6.0-8.0); VITAMIN D, 25-HYDROXY 49.4 ng/mL (30-100)
[2022-11-10 11:45] LABS: WBC TNTC wbc/hpf (0-5)
[2022-11-10 11:46] LABS: BACTERIA 1+; EPITHELIAL CELLS 0-2
== END | disposition home or self-care (01) ==
LOC: LAB 10:22
PROVIDERS: ATTEND Internal Medicine
DX: E10.65 Type 1 diabetes mellitus with hyperglycemia (principal); E78.5 Hyperlipidemia, unspecified; E04.9 Nontoxic goiter, unspecified; E55.9 Vitamin D deficiency, unspecified; E03.8 Other specified hypothyroidism

== ENCOUNTER → 2023-02-09 | Outpatient (CLI) | payer MEDICARE | END | disposition home or self-care (01) | LOC: RESCLI 14:25 | PROVIDERS: ATTEND Internal Medicine | DX: M47.816 Spondylosis without myelopathy or radiculopathy, lumbar region (principal); M51.37 Other intervertebral disc degeneration, lumbosacral region; I13.11 Hypertensive heart and chronic kidney disease without heart failure, with stage 5 chronic kidney disease, or end stage renal disease; E11.21 Type 2 diabetes mellitus with diabetic nephropathy; I50.9 Heart failure, unspecified; N18.6 End stage renal disease; E78.5 Hyperlipidemia, unspecified; K21.9 Gastro-esophageal reflux disease without esophagitis; I25.10 Atherosclerotic heart disease of native coronary artery without angina pectoris; I48.91 Unspecified atrial fibrillation; E03.9 Hypothyroidism, unspecified; E55.9 Vitamin D deficiency, unspecified; M19.012 Primary osteoarthritis, left shoulder; Z93.59 Other cystostomy status; Z94.0 Kidney transplant status; M54.50 Low back pain, unspecified; Z87.891 Personal history of nicotine dependence; Z98.890 Other specified postprocedural states; Z82.49 Family history of ischemic heart disease and other diseases of the circulatory system; Z79.899 Other long term (current) drug therapy ==

== ENCOUNTER → 2023-03-01 | Outpatient (CLI) | payer MEDICARE ==
[2023-03-01 09:18] LABS: BILIRUBIN Negative (Negative); BLOOD 2+ (Negative); CLARITY Turbid (Clear); COLOR Yellow (Yellow); GLUCOSE Negative (Negative); KETONE Negative (Negative); LEUKO ESTERASE 3+ (Negative); NITRITE Positive (Negative); SPECIFIC GRAVITY 1.015 (1.001-1.030); UROBILINOGEN 0.2 E.U./dl (0.0-1.0)
[2023-03-01 09:55] LABS: FREE T4 1.04 ng/dl (0.89-1.76); POTASSIUM 5.1 mmol/L (3.4-5.1); TOTAL PROTEIN 6.3 gm/dL (6.0-8.0)
[2023-03-01 09:56] LABS: VITAMIN D, 25-HYDROXY 67.7 ng/mL (30-100)
[2023-03-01 10:48] LABS: BACTERIA 4+; RBC TNTC rbc/hpf (0-2); WBC TNTC wbc/hpf (0-5)
== END | disposition home or self-care (01) ==
LOC: LAB 08:43
PROVIDERS: ATTEND Internal Medicine
DX: E10.9 Type 1 diabetes mellitus without complications (principal); E55.9 Vitamin D deficiency, unspecified; E11.40 Type 2 diabetes mellitus with diabetic neuropathy, unspecified; E04.9 Nontoxic goiter, unspecified; E78.5 Hyperlipidemia, unspecified; E03.8 Other specified hypothyroidism

== ENCOUNTER → 2023-03-20 | Day surgery (SDC) | payer MEDICARE ==
[~2023-03-20] VITALS: Ht 172.7 cm; Wt 122.5 kg
[~2023-03-20] MED LIST changes: +LANTUS SQ; +LEVOXYL88 MCG PO; +MAGNESIUM OXID500 MG PO; +VELTASSA8.4 GM PO
[2023-03-20 08:17] VITALS: BP 153/76
[2023-03-20 08:55] VITALS: BP 116/16
[2023-03-20 09:10] VITALS: BP 137/50
[2023-03-20 09:25] VITALS: BP 135/52
== END | disposition home or self-care (01) ==
LOC: SDC 03-16 08:45
PROVIDERS: ATTEND Surgery
DX: Z12.11 Encounter for screening for malignant neoplasm of colon (principal); I48.91 Unspecified atrial fibrillation; Z86.010 Personal history of colon polyps; I12.0 Hypertensive chronic kidney disease with stage 5 chronic kidney disease or end stage renal disease; I25.10 Atherosclerotic heart disease of native coronary artery without angina pectoris; E11.22 Type 2 diabetes mellitus with diabetic chronic kidney disease; N18.6 End stage renal disease; Z99.2 Dependence on renal dialysis; K21.9 Gastro-esophageal reflux disease without esophagitis; E66.9 Obesity, unspecified; Z87.891 Personal history of nicotine dependence; Z68.41 Body mass index [BMI] 40.0-44.9, adult; Z79.899 Other long term (current) drug therapy
CPT/HCPCS: 00812; G0105

== ENCOUNTER → 2023-03-23 | Outpatient (CLI) | payer MEDICARE | END | disposition home or self-care (01) | LOC: MRI 13:17 | PROVIDERS: ATTEND Urology | DX: N18.6 End stage renal disease (principal); N28.1 Cyst of kidney, acquired; N13.39 Other hydronephrosis; Z99.2 Dependence on renal dialysis ==

== ENCOUNTER → 2023-03-28 | Outpatient (CLI) | payer MEDICARE ==
[2023-03-28 08:46] LABS: BASO % 0.5 % (0.0-1.0); EOS # 0.1 10*3/uL (0.0-0.4); EOS % 1.5 % (1.0-4.0); HEMATOCRIT 43.2 % (42.0-52.0); LYMPH # 0.3 10*3/uL (1.3-4.4); LYMPH % 4.9 % (27.0-41.0); MEAN CELL VOLUME 90.6 fl (80.0-94.0); MEAN CORPUSCULAR HGB 28.3 pg (27.0-31.0); MEAN CORPUSCULAR HGB CONC 31.3 g/dl (33.0-37.0); MEAN PLATELET VOLUME 9.7 fl (9.6-12.3); MONO # 0.7 10*3/uL (0.1-1.0); MONO % 10.2 % (3.0-9.0); NEUT # 5.4 10*3/uL (2.3-7.9); NEUT % 82.1 % (47.0-73.0); PLATELET COUNT AUTOMATED 227 10*3/uL (130-400); RED BLOOD COUNT 4.77 10*6/uL (4.50-5.90); RED CELL DISTRI WIDTH 13.8 % (0-14.5); WHITE BLOOD COUNT 6.6 10*3/uL (4.8-10.8)
[2023-03-28 09:55] LABS: POTASSIUM 4.8 mmol/L (3.4-5.1); TOTAL PROTEIN 6.7 gm/dL (6.0-8.0)
== END ==
LOC: LAB 08:11
PROVIDERS: ATTEND Urology
DX: Z12.5 Encounter for screening for malignant neoplasm of prostate (principal); R53.83 Other fatigue

== ENCOUNTER → 2023-05-08 | Outpatient (CLI) | payer MEDICARE | END | disposition home or self-care (01) | LOC: RESCLI 01:38 | PROVIDERS: ATTEND Internal Medicine | DX: I12.9 Hypertensive chronic kidney disease with stage 1 through stage 4 chronic kidney disease, or unspecified chronic kidney disease (principal); I48.91 Unspecified atrial fibrillation; I25.10 Atherosclerotic heart disease of native coronary artery without angina pectoris; K21.9 Gastro-esophageal reflux disease without esophagitis; N18.6 End stage renal disease; E11.22 Type 2 diabetes mellitus with diabetic chronic kidney disease; I10 Essential (primary) hypertension; E11.21 Type 2 diabetes mellitus with diabetic nephropathy; E55.9 Vitamin D deficiency, unspecified; E78.5 Hyperlipidemia, unspecified; E11.9 Type 2 diabetes mellitus without complications; M48.062 Spinal stenosis, lumbar region with neurogenic claudication; E03.9 Hypothyroidism, unspecified; I50.9 Heart failure, unspecified; E53.8 Deficiency of other specified B group vitamins; Z86.010 Personal history of colon polyps; Z94.0 Kidney transplant status; Z79.4 Long term (current) use of insulin; Z79.899 Other long term (current) drug therapy ==

== ENCOUNTER 2023-06-30 09:08 | Emergency (ER) | payer MEDICARE ==
[~2023-06-30] VITALS: Ht 172.7 cm; Wt 122.5 kg
[2023-06-30 09:17] VITALS: BP 156/58
[2023-06-30] MEDS ORDERED: HYDROCODONE-AC1 EAC1 PO (09:30)
[2023-06-30] MEDS ORDERED: VALTREX500 MG PO (09:30)
[2023-06-30] MEDS ORDERED: PREDNISONE20 M1 PO (09:30)
== END 2023-06-30 09:42 | disposition home or self-care (01) ==
LOC: ED 09:08
DX: B02.9 Zoster without complications (principal); I11.0 Hypertensive heart disease with heart failure; I50.9 Heart failure, unspecified; I48.91 Unspecified atrial fibrillation; E11.9 Type 2 diabetes mellitus without complications; Z79.899 Other long term (current) drug therapy; Z79.4 Long term (current) use of insulin; Z98.890 Other specified postprocedural states; Z90.49 Acquired absence of other specified parts of digestive tract; Z94.0 Kidney transplant status

== ENCOUNTER → 2023-07-05 | Outpatient (CLI) | payer MEDICARE ==
[~2023-07-05] MED LIST changes: +PREDNISONE20 M1 PO; +VALTREX500 MG PO
== END | disposition home or self-care (01) ==
LOC: RESCLI 14:03
PROVIDERS: ATTEND Student in an Organized Health Care Education/Training Program
DX: B02.9 Zoster without complications (principal); I10 Essential (primary) hypertension; E11.9 Type 2 diabetes mellitus without complications; I48.91 Unspecified atrial fibrillation; E03.9 Hypothyroidism, unspecified; K21.9 Gastro-esophageal reflux disease without esophagitis; Z82.49 Family history of ischemic heart disease and other diseases of the circulatory system; Z87.891 Personal history of nicotine dependence; Z79.899 Other long term (current) drug therapy

== ENCOUNTER → 2023-08-21 | Outpatient (CLI) | payer MEDICARE ==
[2023-08-21 09:12] LABS: BILIRUBIN Negative (Negative); BLOOD 1+ (Negative); CLARITY Turbid (Clear); COLOR Yellow (Yellow); GLUCOSE Negative (Negative); KETONE Negative (Negative); LEUKO ESTERASE 3+ (Negative); NITRITE Positive (Negative); SPECIFIC GRAVITY 1.015 (1.001-1.030); UROBILINOGEN 0.2 E.U./dl (0.0-1.0)
[2023-08-21 09:46] LABS: FREE T4 0.99 ng/dl (0.89-1.76); TOTAL PROTEIN 6.4 gm/dL (6.0-8.0)
[2023-08-21 10:06] LABS: BACTERIA 4+; TRIP PHOS CRYSTALS TR; WBC TNTC wbc/hpf (0-5)
[2023-08-21 10:10] LABS: VITAMIN D, 25-HYDROXY 53.2 ng/mL (30-100)
== END | disposition home or self-care (01) ==
LOC: LAB 08:34
PROVIDERS: ATTEND Internal Medicine
DX: E10.65 Type 1 diabetes mellitus with hyperglycemia (principal); E55.9 Vitamin D deficiency, unspecified; E04.9 Nontoxic goiter, unspecified; E78.5 Hyperlipidemia, unspecified; E03.8 Other specified hypothyroidism

== ENCOUNTER → 2023-09-07 | Outpatient (CLI) | payer MEDICARE ==
[2023-09-07 10:05] LABS: BASO % 0.4 % (0.0-1.0); EOS # 0.1 10*3/uL (0.0-0.4); HEMATOCRIT 42.8 % (42.0-52.0); LYMPH # 0.3 10*3/uL (1.3-4.4); LYMPH % 2.5 % (27.0-41.0); MEAN CELL VOLUME 94.5 fl (80.0-94.0); MEAN CORPUSCULAR HGB 28.5 pg (27.0-31.0); MEAN CORPUSCULAR HGB CONC 30.1 g/dl (33.0-37.0); MEAN PLATELET VOLUME 9.8 fl (9.6-12.3); MONO # 0.7 10*3/uL (0.1-1.0); MONO % 6.8 % (3.0-9.0); NEUT # 9.3 10*3/uL (2.3-7.9); NEUT % 87.9 % (47.0-73.0); PLATELET COUNT AUTOMATED 222 10*3/uL (130-400); RED BLOOD COUNT 4.53 10*6/uL (4.50-5.90); RED CELL DISTRI WIDTH 15.7 % (0-14.5); WHITE BLOOD COUNT 10.6 10*3/uL (4.8-10.8)
[2023-09-07 10:26] LABS: ALKALINE PHOSPHATASE 81 U/L (46-116); BUN 38 mg/dl (9-23); CHLORIDE 109 mmol/L (98-107); POTASSIUM 3.6 mmol/L (3.4-5.1); TOTAL PROTEIN 6.5 gm/dL (6.0-8.0)
[2023-09-07 10:31] LABS: SGPT/ALT < 7 U/L (5-49)
[2023-09-07 10:45] LABS: VITAMIN D, 25-HYDROXY 52.4 ng/mL (30-100)
== END | disposition home or self-care (01) ==
LOC: LAB 09:36
PROVIDERS: ATTEND Internal Medicine Nephrology
DX: E11.22 Type 2 diabetes mellitus with diabetic chronic kidney disease (principal); D63.1 Anemia in chronic kidney disease; N25.81 Secondary hyperparathyroidism of renal origin; N18.9 Chronic kidney disease, unspecified; Z94.0 Kidney transplant status

== ENCOUNTER → 2023-11-01 | Outpatient (CLI) | payer MEDICARE | END | disposition home or self-care (01) | LOC: US 13:42 | PROVIDERS: ATTEND Urology | DX: Z94.4 Liver transplant status (principal) ==

== ENCOUNTER → 2024-01-22 | Outpatient (CLI) | payer MEDICARE | END | disposition home or self-care (01) | LOC: RESCLI 00:30 | PROVIDERS: ATTEND Family Medicine | DX: I13.2 Hypertensive heart and chronic kidney disease with heart failure and with stage 5 chronic kidney disease, or end stage renal disease (principal); E11.22 Type 2 diabetes mellitus with diabetic chronic kidney disease; I50.9 Heart failure, unspecified; E11.21 Type 2 diabetes mellitus with diabetic nephropathy; N18.6 End stage renal disease; E78.5 Hyperlipidemia, unspecified; M48.062 Spinal stenosis, lumbar region with neurogenic claudication; K21.9 Gastro-esophageal reflux disease without esophagitis; I48.91 Unspecified atrial fibrillation; E03.9 Hypothyroidism, unspecified; I25.10 Atherosclerotic heart disease of native coronary artery without angina pectoris; E53.8 Deficiency of other specified B group vitamins; Z94.0 Kidney transplant status; Z86.010 Personal history of colon polyps; Z98.890 Other specified postprocedural states; Z87.891 Personal history of nicotine dependence; Z79.899 Other long term (current) drug therapy ==

== ENCOUNTER → 2024-01-30 | Outpatient (CLI) | payer MEDICARE ==
[2024-01-30 10:59] LABS: BASO % 0.4 % (0.0-1.0); EOS # 0.1 10*3/uL (0.0-0.4); EOS % 1.5 % (1.0-4.0); HEMATOCRIT 43.6 % (42.0-52.0); LYMPH # 0.3 10*3/uL (1.3-4.4); LYMPH % 3.3 % (27.0-41.0); MEAN CELL VOLUME 90.8 fl (80.0-94.0); MEAN CORPUSCULAR HGB 26.9 pg (27.0-31.0); MEAN CORPUSCULAR HGB CONC 29.6 g/dl (33.0-37.0); MEAN PLATELET VOLUME 9.8 fl (9.6-12.3); MONO # 0.8 10*3/uL (0.1-1.0); MONO % 9.5 % (3.0-9.0); NEUT # 6.7 10*3/uL (2.3-7.9); NEUT % 84.7 % (47.0-73.0); PLATELET COUNT AUTOMATED 237 10*3/uL (130-400); RED CELL DISTRI WIDTH 14.3 % (0-14.5); WHITE BLOOD COUNT 7.9 10*3/uL (4.8-10.8)
[2024-01-30 11:01] LABS: BILIRUBIN Negative (Negative); BLOOD 1+ (Negative); CLARITY Turbid (Clear); COLOR Yellow (Yellow); GLUCOSE Negative (Negative); KETONE Negative (Negative); LEUKO ESTERASE 3+ (Negative); NITRITE Negative (Negative); UROBILINOGEN 0.2 E.U./dl (0.0-1.0)
[2024-01-30 11:19] LABS: ALKALINE PHOSPHATASE 82 U/L (46-116); BUN 31 mg/dl (9-23); CHLORIDE 105 mmol/L (98-107); POTASSIUM 4.2 mmol/L (3.4-5.1); TOTAL PROTEIN 6.5 gm/dL (6.0-8.0)
[2024-01-30 11:22] LABS: ALKALINE PHOSPHATASE 82 U/L (46-116); CHOLESTEROL 97 mg/dL (<200); FREE T4 1.21 ng/dl (0.89-1.76); LDL CHOLESTEROL 37 mg/dL (9-159); SGPT/ALT < 7 U/L (5-49); TOTAL PROTEIN 6.5 gm/dL (6.0-8.0); TRIGLYCERIDES 57 mg/dl (<150)
[2024-01-30 11:23] LABS: SGPT/ALT < 7 U/L (5-49)
[2024-01-30 11:55] LABS: VITAMIN D, 25-HYDROXY 50.6 ng/mL (30-100)
[2024-01-30 13:15] LABS: BACTERIA 4+; RBC TNTC rbc/hpf (0-2); WBC TNTC wbc/hpf (0-5)
== END | disposition home or self-care (01) ==
LOC: LAB 10:26
PROVIDERS: Urology; ATTEND Internal Medicine
DX: Z12.5 Encounter for screening for malignant neoplasm of prostate (principal); E78.5 Hyperlipidemia, unspecified; E55.9 Vitamin D deficiency, unspecified; E11.40 Type 2 diabetes mellitus with diabetic neuropathy, unspecified; E03.8 Other specified hypothyroidism; D40.0 Neoplasm of uncertain behavior of prostate

== ENCOUNTER → 2024-03-18 | Day surgery (SDC) | payer MEDICARE ==
[~2024-03-18] VITALS: Ht 172.7 cm; Wt 127.9 kg
[~2024-03-18] MED LIST changes: +CELLCEPT200 MG/1 M IV; +Lidocaine Hydrochloride 5 ML VIAL IV ONE; +PROPOFOL 200 MG/20 ML VIAL IV ONE; +PROPOFOL 50 ML IV ONE
[2024-03-18 12:23] VITALS: BP 134/74
[2024-03-18 13:58] VITALS: BP 126/51
== END | disposition home or self-care (01) ==
LOC: SDC 03-15 11:00
PROVIDERS: ATTEND Surgery
DX: Z12.11 Encounter for screening for malignant neoplasm of colon (principal); K64.9 Unspecified hemorrhoids; K44.9 Diaphragmatic hernia without obstruction or gangrene; K43.9 Ventral hernia without obstruction or gangrene; I13.2 Hypertensive heart and chronic kidney disease with heart failure and with stage 5 chronic kidney disease, or end stage renal disease; E11.22 Type 2 diabetes mellitus with diabetic chronic kidney disease; N18.6 End stage renal disease; I50.9 Heart failure, unspecified; K21.9 Gastro-esophageal reflux disease without esophagitis; I48.91 Unspecified atrial fibrillation; E78.00 Pure hypercholesterolemia, unspecified; Z86.0100 Personal history of colon polyps, unspecified; H54.7 Unspecified visual loss; Z94.0 Kidney transplant status; Z87.891 Personal history of nicotine dependence; Z98.49 Cataract extraction status, unspecified eye; Z79.899 Other long term (current) drug therapy; Z53.8 Procedure and treatment not carried out for other reasons
CPT/HCPCS: 00812; G0105

== ENCOUNTER → 2024-04-22 | Outpatient (CLI) | payer MEDICARE ==
[~2024-04-22] MED LIST changes: -Lidocaine Hydrochloride 5 ML VIAL IV ONE; -PROPOFOL 200 MG/20 ML VIAL IV ONE; -PROPOFOL 50 ML IV ONE
== END | disposition home or self-care (01) ==
LOC: RESCLI 00:32
PROVIDERS: ATTEND Internal Medicine
DX: E11.21 Type 2 diabetes mellitus with diabetic nephropathy (principal); E55.9 Vitamin D deficiency, unspecified; E78.5 Hyperlipidemia, unspecified; M48.062 Spinal stenosis, lumbar region with neurogenic claudication; K21.9 Gastro-esophageal reflux disease without esophagitis; I25.10 Atherosclerotic heart disease of native coronary artery without angina pectoris; I48.91 Unspecified atrial fibrillation; E03.9 Hypothyroidism, unspecified; I13.2 Hypertensive heart and chronic kidney disease with heart failure and with stage 5 chronic kidney disease, or end stage renal disease; I50.9 Heart failure, unspecified; N18.6 End stage renal disease; E53.8 Deficiency of other specified B group vitamins; Z94.0 Kidney transplant status; Z79.899 Other long term (current) drug therapy; Z98.890 Other specified postprocedural states

== ENCOUNTER → 2024-04-26 | Outpatient (CLI) | payer MEDICARE ==
[2024-04-26 08:08] LABS: BASO % 0.5 % (0.0-1.0); EOS # 0.1 10*3/uL (0.0-0.4); EOS % 1.3 % (1.0-4.0); HEMATOCRIT 45.3 % (42.0-52.0); MEAN CELL VOLUME 88.8 fl (80.0-94.0); MEAN CORPUSCULAR HGB 26.1 pg (27.0-31.0); MEAN CORPUSCULAR HGB CONC 29.4 g/dl (33.0-37.0); MEAN PLATELET VOLUME 9.7 fl (9.6-12.3); MONO # 0.5 10*3/uL (0.1-1.0); NEUT # 7.6 10*3/uL (2.3-7.9); NEUT % 88.2 % (47.0-73.0); PLATELET COUNT AUTOMATED 228 10*3/uL (130-400); RED CELL DISTRI WIDTH 14.3 % (0-14.5); WHITE BLOOD COUNT 8.6 10*3/uL (4.8-10.8)
[2024-04-26 09:49] LABS: URINE CREATININE RANDOM 77.12 mg/dL
[2024-04-26 11:47] LABS: ALKALINE PHOSPHATASE 93 U/L (46-116); BUN 39 mg/dl (9-23); CHLORIDE 106 mmol/L (98-107)
[2024-04-26 11:52] LABS: SGPT/ALT < 7 U/L (5-49)
== END | disposition home or self-care (01) ==
LOC: LAB 07:40
PROVIDERS: Student in an Organized Health Care Education/Training Program; ATTEND Urology
DX: E11.21 Type 2 diabetes mellitus with diabetic nephropathy (principal); D40.0 Neoplasm of uncertain behavior of prostate; R53.83 Other fatigue

== ENCOUNTER → 2024-06-13 | Outpatient (CLI) | payer MEDICARE ==
[2024-06-13 09:47] LABS: ALKALINE PHOSPHATASE 101 U/L (46-116); BUN 36 mg/dl (9-23); CHLORIDE 103 mmol/L (98-107); CHOLESTEROL 93 mg/dL (<200); LDL CHOLESTEROL 36 mg/dL (9-159); POTASSIUM 4.1 mmol/L (3.4-5.1); TOTAL PROTEIN 6.5 gm/dL (6.0-8.0); TRIGLYCERIDES 66 mg/dl (<150)
[2024-06-13 09:48] LABS: SGPT/ALT < 7 U/L (5-49)
[2024-06-15 16:07] LABS: GLUTAMIC ACID DECARB AB <5.0 U/mL (0.0-5.0)
== END | disposition home or self-care (01) ==
LOC: LAB 07:53
PROVIDERS: Student in an Organized Health Care Education/Training Program; ATTEND Internal Medicine Endocrinology, Diabetes & Metabolism
DX: E13.65 Other specified diabetes mellitus with hyperglycemia (principal); E88.819 Insulin resistance, unspecified; E78.5 Hyperlipidemia, unspecified

== ENCOUNTER → 2024-07-03 | Outpatient (CLI) | payer MEDICARE ==
[2024-07-03 09:30] LABS: BILIRUBIN Negative (Negative); CLARITY Turbid (Clear); COLOR Yellow (Yellow); GLUCOSE Negative (Negative); KETONE Negative (Negative)
[2024-07-03 09:31] LABS: BLOOD 1+ (Negative); LEUKO ESTERASE 3+ (Negative); NITRITE Negative (Negative); SPECIFIC GRAVITY 1.005 (1.001-1.030); UROBILINOGEN 0.2 E.U./dl (0.0-1.0); WBC 0-2 wbc/hpf (0-5)
[2024-07-03 09:32] LABS: BACTERIA 2+; TRIP PHOS CRYSTALS 3+
[2024-07-03 09:38] LABS: POTASSIUM 4.3 mmol/L (3.4-5.1); TOTAL PROTEIN 6.3 gm/dL (6.0-8.0)
[2024-07-03 16:50] LABS: VITAMIN D, 25-HYDROXY 62.1 ng/mL (30-100)
[2024-07-03 17:24] LABS: FREE T4 1.15 ng/dl (0.89-1.76)
== END | disposition home or self-care (01) ==
LOC: LAB 07:48
PROVIDERS: ATTEND Internal Medicine
DX: E11.40 Type 2 diabetes mellitus with diabetic neuropathy, unspecified (principal); E55.9 Vitamin D deficiency, unspecified; E78.5 Hyperlipidemia, unspecified; E03.8 Other specified hypothyroidism

== ENCOUNTER → 2024-07-06 | Outpatient (CLI) | payer MEDICARE ==
[~2024-07-06] MED LIST changes: +ZITHROMAX250 MG PO
[2024-07-06 08:43] LABS: BILIRUBIN Negative (Negative); BLOOD Negative (Negative); CLARITY Cloudy (Clear); COLOR Yellow (Yellow); GLUCOSE Trace (Negative); KETONE Negative (Negative); LEUKO ESTERASE 3+ (Negative); NITRITE Positive (Negative); SPECIFIC GRAVITY 1.015 (1.001-1.030); UROBILINOGEN 0.2 E.U./dl (0.0-1.0)
[2024-07-06 08:44] LABS: BASO % 0.1 % (0.0-1.0); EOS # 0.2 10*3/uL (0.0-0.4); EOS % 2.8 % (1.0-4.0); HEMATOCRIT 46.8 % (42.0-52.0); MEAN CELL VOLUME 87.6 fl (80.0-94.0); MEAN CORPUSCULAR HGB 26.4 pg (27.0-31.0); MEAN CORPUSCULAR HGB CONC 30.1 g/dl (33.0-37.0); MEAN PLATELET VOLUME 10.4 fl (9.6-12.3); MONO # 0.7 10*3/uL (0.1-1.0); MONO % 9.9 % (3.0-9.0); NEUT # 5.5 10*3/uL (2.3-7.9); NEUT % 82.1 % (47.0-73.0); PLATELET COUNT AUTOMATED 179 10*3/uL (130-400); RED BLOOD COUNT 5.34 10*6/uL (4.50-5.90); RED CELL DISTRI WIDTH 15.6 % (0-14.5); WHITE BLOOD COUNT 6.8 10*3/uL (4.8-10.8)
[2024-07-06 08:53] LABS: PH >= 9.0 (4.5-8.0)
[2024-07-06 09:07] LABS: POTASSIUM 4.2 mmol/L (3.4-5.1); TOTAL PROTEIN 6.4 gm/dL (6.0-8.0); URIC ACID 6.6 mg/dL (3.7-9.2)
[2024-07-06 10:04] LABS: VITAMIN D, 25-HYDROXY 67.6 ng/mL (30-100)
[2024-07-06 11:46] LABS: BACTERIA 2+; TRIP PHOS CRYSTALS 4+; WBC 16-20 wbc/hpf (0-5)
== END | disposition home or self-care (01) ==
LOC: LAB 08:18
PROVIDERS: ATTEND Internal Medicine Nephrology
DX: E11.22 Type 2 diabetes mellitus with diabetic chronic kidney disease (principal); N25.81 Secondary hyperparathyroidism of renal origin; N28.9 Disorder of kidney and ureter, unspecified; D63.1 Anemia in chronic kidney disease; Z94.0 Kidney transplant status

== ENCOUNTER 2024-07-08 18:56 | Emergency (ER) | payer MEDICARE ==
[~2024-07-08] VITALS: Ht 172.7 cm; Wt 130.6 kg
[~2024-07-08 18:56] MED LIST changes: -ZITHROMAX250 MG PO
[2024-07-08 19:00] VITALS: BP 124/68
[2024-07-08 19:46] LABS: BASO % 0.1 % (0.0-1.0); EOS # 0.1 10*3/uL (0.0-0.4); EOS % 0.8 % (1.0-4.0); HEMATOCRIT 46.4 % (42.0-52.0); MEAN CELL VOLUME 88.4 fl (80.0-94.0); MEAN CORPUSCULAR HGB 26.5 pg (27.0-31.0); MEAN PLATELET VOLUME 10.3 fl (9.6-12.3); MONO # 0.5 10*3/uL (0.1-1.0); MONO % 6.4 % (3.0-9.0); NEUT # 6.4 10*3/uL (2.3-7.9); NEUT % 88.6 % (47.0-73.0); PLATELET COUNT AUTOMATED 180 10*3/uL (130-400); RED BLOOD COUNT 5.25 10*6/uL (4.50-5.90); RED CELL DISTRI WIDTH 15.2 % (0-14.5); WHITE BLOOD COUNT 7.2 10*3/uL (4.8-10.8)
[2024-07-08 20:07] LABS: POTASSIUM 4.2 mmol/L (3.4-5.1)
[2024-07-08] MEDS ORDERED: methylPREDNISolone sod succ 125 MG VIAL IM ONE (20:55)
[2024-07-08] MEDS ORDERED: PREDNISONE20 M1 PO (21:49)
[2024-07-08] MEDS ORDERED: ZITHROMAX250 MG PO (21:49)
== END 2024-07-08 22:01 | disposition home or self-care (01) ==
LOC: ED 18:56
PROVIDERS: Internal Medicine
DX: J40 Bronchitis, not specified as acute or chronic (principal); E11.65 Type 2 diabetes mellitus with hyperglycemia; D63.1 Anemia in chronic kidney disease; E11.22 Type 2 diabetes mellitus with diabetic chronic kidney disease; I13.0 Hypertensive heart and chronic kidney disease with heart failure and stage 1 through stage 4 chronic kidney disease, or unspecified chronic kidney disease; N18.4 Chronic kidney disease, stage 4 (severe); I50.9 Heart failure, unspecified; Z79.4 Long term (current) use of insulin; K21.9 Gastro-esophageal reflux disease without esophagitis; I48.91 Unspecified atrial fibrillation; E78.00 Pure hypercholesterolemia, unspecified; Z87.442 Personal history of urinary calculi; Z90.49 Acquired absence of other specified parts of digestive tract; Z98.890 Other specified postprocedural states

== ENCOUNTER → 2024-07-11 | Outpatient (CLI) | payer MEDICARE ==
[~2024-07-11] MED LIST changes: +ZITHROMAX250 MG PO
== END | disposition home or self-care (01) ==
LOC: RESCLI 13:43
PROVIDERS: ATTEND Internal Medicine
DX: I13.0 Hypertensive heart and chronic kidney disease with heart failure and stage 1 through stage 4 chronic kidney disease, or unspecified chronic kidney disease (principal); N18.6 End stage renal disease; I50.9 Heart failure, unspecified; E78.5 Hyperlipidemia, unspecified; I48.91 Unspecified atrial fibrillation; E03.9 Hypothyroidism, unspecified; E10.9 Type 1 diabetes mellitus without complications; K21.9 Gastro-esophageal reflux disease without esophagitis; Z79.899 Other long term (current) drug therapy; Z98.890 Other specified postprocedural states

== ENCOUNTER → 2024-08-13 | Outpatient (CLI) | payer MEDICARE ==
[2024-08-13 08:45] LABS: ALKALINE PHOSPHATASE 92 U/L (46-116); BUN 35 mg/dl (9-23); CHLORIDE 104 mmol/L (98-107); POTASSIUM 4.1 mmol/L (3.4-5.1); TOTAL PROTEIN 6.6 gm/dL (6.0-8.0)
[2024-08-13 08:50] LABS: SGPT/ALT < 7 U/L (5-49)
== END | disposition home or self-care (01) ==
LOC: LAB 07:55
PROVIDERS: Internal Medicine Endocrinology, Diabetes & Metabolism; ATTEND Physician Assistant Medical
DX: E11.65 Type 2 diabetes mellitus with hyperglycemia (principal)

== ENCOUNTER → 2024-09-07 | Outpatient (CLI) | payer MEDICARE ==
[2024-09-07 09:19] LABS: POTASSIUM 4.1 mmol/L (3.4-5.1); TOTAL PROTEIN 6.6 gm/dL (6.0-8.0)
== END | disposition home or self-care (01) ==
LOC: LAB 08:21
PROVIDERS: Student in an Organized Health Care Education/Training Program; ATTEND Internal Medicine Endocrinology, Diabetes & Metabolism
DX: E78.5 Hyperlipidemia, unspecified (principal); E10.21 Type 1 diabetes mellitus with diabetic nephropathy; E88.819 Insulin resistance, unspecified

== ENCOUNTER → 2024-10-18 | Outpatient (CLI) | payer MEDICARE | END | disposition home or self-care (01) | LOC: US 13:00 | PROVIDERS: ATTEND Urology | DX: N28.1 Cyst of kidney, acquired (principal); R93.5 Abnormal findings on diagnostic imaging of other abdominal regions, including retroperitoneum; R79.89 Other specified abnormal findings of blood chemistry ==

== ENCOUNTER → 2024-11-09 | Outpatient (CLI) | payer MEDICARE ==
[2024-11-09 09:21] LABS: BASO % 0.4 % (0.0-1.0); EOS # 0.1 10*3/uL (0.0-0.4); EOS % 1.3 % (1.0-4.0); HEMATOCRIT 48.1 % (42.0-52.0); MEAN CELL VOLUME 92.5 fl (80.0-94.0); MEAN CORPUSCULAR HGB 28.1 pg (27.0-31.0); MEAN CORPUSCULAR HGB CONC 30.4 g/dl (33.0-37.0); MEAN PLATELET VOLUME 10.4 fl (9.6-12.3); MONO # 0.8 10*3/uL (0.1-1.0); MONO % 7.6 % (3.0-9.0); NEUT # 8.7 10*3/uL (2.3-7.9); NEUT % 87.5 % (47.0-73.0); PLATELET COUNT AUTOMATED 192 10*3/uL (130-400); RED CELL DISTRI WIDTH 14.5 % (0-14.5); WHITE BLOOD COUNT 9.9 10*3/uL (4.8-10.8)
[2024-11-09 09:27] LABS: BILIRUBIN Negative (Negative); BLOOD 3+ (Negative); CLARITY Cloudy (Clear); GLUCOSE Negative (Negative); KETONE Negative (Negative); LEUKO ESTERASE 3+ (Negative); NITRITE Positive (Negative); SPECIFIC GRAVITY 1.015 (1.001-1.030)
[2024-11-09 09:36] LABS: COLOR Orange (Yellow); PH >= 9.0 (4.5-8.0); RBC TNTC rbc/hpf (0-2); WBC TNTC wbc/hpf (0-5)
[2024-11-09 09:37] LABS: BACTERIA 1+; CALCIUM OXALATE CRYSTALS 1+
[2024-11-09 09:40] LABS: ALKALINE PHOSPHATASE 78 U/L (46-116); BUN 30 mg/dl (9-23); CHLORIDE 104 mmol/L (98-107); POTASSIUM 3.9 mmol/L (3.4-5.1); TOTAL PROTEIN 6.2 gm/dL (6.0-8.0); URIC ACID 7.6 mg/dL (3.7-9.2)
[2024-11-09 09:43] LABS: VITAMIN D, 25-HYDROXY 60.6 ng/mL (30-100)
[2024-11-09 10:00] LABS: SGPT/ALT < 7 U/L (5-49)
== END | disposition home or self-care (01) ==
LOC: LAB 08:33
PROVIDERS: ATTEND Internal Medicine Nephrology
DX: E11.22 Type 2 diabetes mellitus with diabetic chronic kidney disease (principal); N18.9 Chronic kidney disease, unspecified; N25.81 Secondary hyperparathyroidism of renal origin; D63.1 Anemia in chronic kidney disease; Z94.0 Kidney transplant status

== ENCOUNTER → 2024-11-13 | Outpatient (CLI) | payer MEDICARE | END | disposition home or self-care (01) | LOC: RESCLI 01:21 | PROVIDERS: ATTEND Internal Medicine | DX: I13.2 Hypertensive heart and chronic kidney disease with heart failure and with stage 5 chronic kidney disease, or end stage renal disease (principal); I50.9 Heart failure, unspecified; E10.22 Type 1 diabetes mellitus with diabetic chronic kidney disease; N18.6 End stage renal disease; J40 Bronchitis, not specified as acute or chronic; I48.91 Unspecified atrial fibrillation; E03.9 Hypothyroidism, unspecified; E78.5 Hyperlipidemia, unspecified; K21.9 Gastro-esophageal reflux disease without esophagitis; E53.8 Deficiency of other specified B group vitamins; E55.9 Vitamin D deficiency, unspecified; Z79.899 Other long term (current) drug therapy; Z94.0 Kidney transplant status ==

== ENCOUNTER → 2024-11-13 | Outpatient (CLI) | payer MEDICARE ==
[2024-11-13 07:55] LABS: BASO % 0.4 % (0.0-1.0); EOS # 0.1 10*3/uL (0.0-0.4); EOS % 1.6 % (1.0-4.0); HEMATOCRIT 47.4 % (42.0-52.0); MEAN CELL VOLUME 91.5 fl (80.0-94.0); MEAN CORPUSCULAR HGB CONC 30.6 g/dl (33.0-37.0); MEAN PLATELET VOLUME 9.6 fl (9.6-12.3); MONO # 0.6 10*3/uL (0.1-1.0); MONO % 7.3 % (3.0-9.0); NEUT # 7.2 10*3/uL (2.3-7.9); NEUT % 86.7 % (47.0-73.0); PLATELET COUNT AUTOMATED 190 10*3/uL (130-400); RED BLOOD COUNT 5.18 10*6/uL (4.50-5.90); RED CELL DISTRI WIDTH 14.3 % (0-14.5); WHITE BLOOD COUNT 8.3 10*3/uL (4.8-10.8)
[2024-11-13 08:42] LABS: ALKALINE PHOSPHATASE 83 U/L (46-116); BUN 35 mg/dl (9-23); CHLORIDE 104 mmol/L (98-107); POTASSIUM 3.7 mmol/L (3.4-5.1)
[2024-11-13 08:46] LABS: SGPT/ALT < 7 U/L (5-49)
== END | disposition home or self-care (01) ==
LOC: LAB 07:22 → CT 08:00
PROVIDERS: Nurse Practitioner; ATTEND Urology
DX: Z12.5 Encounter for screening for malignant neoplasm of prostate (principal); N32.89 Other specified disorders of bladder; R10.84 Generalized abdominal pain; R33.9 Retention of urine, unspecified; E11.9 Type 2 diabetes mellitus without complications; N26.1 Atrophy of kidney (terminal); N20.0 Calculus of kidney; R79.89 Other specified abnormal findings of blood chemistry; R53.83 Other fatigue; R93.5 Abnormal findings on diagnostic imaging of other abdominal regions, including retroperitoneum; M51.379 Other intervertebral disc degeneration, lumbosacral region without mention of lumbar back pain or lower extremity pain; M47.816 Spondylosis without myelopathy or radiculopathy, lumbar region; M43.17 Spondylolisthesis, lumbosacral region; J98.4 Other disorders of lung; I70.90 Unspecified atherosclerosis

== ENCOUNTER → 2024-12-23 | Outpatient (CLI) | payer MEDICARE ==
[2024-12-23 09:46] LABS: BUN 28 mg/dl (9-23); FREE T4 1.22 ng/dl (0.89-1.76); LDL CHOLESTEROL 26 mg/dL (9-159)
[2024-12-23 10:08] LABS: SGPT/ALT < 7 U/L (5-49)
== END | disposition home or self-care (01) ==
LOC: LAB 07:59
PROVIDERS: Student in an Organized Health Care Education/Training Program; ATTEND Internal Medicine Endocrinology, Diabetes & Metabolism
DX: E10.21 Type 1 diabetes mellitus with diabetic nephropathy (principal); E13.65 Other specified diabetes mellitus with hyperglycemia; E78.5 Hyperlipidemia, unspecified; E03.9 Hypothyroidism, unspecified

== ENCOUNTER → 2025-02-18 | Outpatient (CLI) | payer MEDICARE | END | disposition home or self-care (01) | LOC: RESCLI 03:13 | PROVIDERS: ATTEND Student in an Organized Health Care Education/Training Program | DX: G62.9 Polyneuropathy, unspecified (principal); I48.91 Unspecified atrial fibrillation; I13.0 Hypertensive heart and chronic kidney disease with heart failure and stage 1 through stage 4 chronic kidney disease, or unspecified chronic kidney disease; I50.9 Heart failure, unspecified; N18.6 End stage renal disease; E10.9 Type 1 diabetes mellitus without complications; E03.9 Hypothyroidism, unspecified; K21.9 Gastro-esophageal reflux disease without esophagitis; E53.8 Deficiency of other specified B group vitamins; E55.9 Vitamin D deficiency, unspecified; Z94.0 Kidney transplant status; Z79.899 Other long term (current) drug therapy; Z98.890 Other specified postprocedural states ==

== ENCOUNTER → 2025-03-01 | Outpatient (CLI) | payer MEDICARE ==
[2025-03-01 08:17] LABS: BASO # 0.0 10*3/uL (0.0-0.1); BASO % 0.6 % (0.0-1.0); EOS # 0.1 10*3/uL (0.0-0.4); EOS % 1.6 % (1.0-4.0); MEAN CELL VOLUME 92.7 fl (80.0-94.0); MEAN CORPUSCULAR HGB 28.2 pg (27.0-31.0); MEAN PLATELET VOLUME 9.9 fl (9.6-12.3); MONO # 0.6 10*3/uL (0.1-1.0); MONO % 8.9 % (3.0-9.0); NEUT # 5.9 10*3/uL (2.3-7.9); NEUT % 83.9 % (47.0-73.0); NUCLEATED RED BLOOD CELL 0.0 % (0.0-0.0); NUCLEATED RED BLOOD CELL 0.0 10*3/uL (0.0-0.0); PLATELET COUNT AUTOMATED 195 10*3/uL (130-400); RED CELL DISTRI WIDTH 13.9 % (0-14.5)
[2025-03-01 08:46] LABS: BUN 34.0 mg/dl (9-23); SGPT/ALT 7.0 U/L (5-49)
== END | disposition home or self-care (01) ==
LOC: LAB 07:55
PROVIDERS: ATTEND Nurse Practitioner
DX: Z12.5 Encounter for screening for malignant neoplasm of prostate (principal); D40.0 Neoplasm of uncertain behavior of prostate; E29.1 Testicular hypofunction; R53.83 Other fatigue

== ENCOUNTER → 2025-03-27 | Outpatient (CLI) | payer MEDICARE ==
[2025-03-27 08:41] LABS: BASO # 0.0 10*3/uL (0.0-0.1); BASO % 0.5 % (0.0-1.0); EOS # 0.1 10*3/uL (0.0-0.4); EOS % 2.0 % (1.0-4.0); MEAN CELL VOLUME 92.4 fl (80.0-94.0); MEAN CORPUSCULAR HGB 28.5 pg (27.0-31.0); MEAN PLATELET VOLUME 9.6 fl (9.6-12.3); MONO # 0.7 10*3/uL (0.1-1.0); MONO % 12.0 % (3.0-9.0); NEUT # 4.3 10*3/uL (2.3-7.9); NEUT % 78.4 % (47.0-73.0); NUCLEATED RED BLOOD CELL 0.0 % (0.0-0.0); NUCLEATED RED BLOOD CELL 0.0 10*3/uL (0.0-0.0); PLATELET COUNT AUTOMATED 187 10*3/uL (130-400); RED CELL DISTRI WIDTH 13.5 % (0-14.5)
[2025-03-27 09:17] LABS: BUN 37.0 mg/dl (9-23); SGPT/ALT 16.0 U/L (5-49)
== END | disposition home or self-care (01) ==
LOC: LAB 08:22
PROVIDERS: ATTEND Nurse Practitioner
DX: Z12.5 Encounter for screening for malignant neoplasm of prostate (principal); D40.0 Neoplasm of uncertain behavior of prostate; E29.1 Testicular hypofunction; R53.83 Other fatigue

== ENCOUNTER → 2025-04-01 | Outpatient (CLI) | payer MEDICARE ==
[2025-04-01 08:54] LABS: BUN 35.0 mg/dl (9-23); LDL CHOLESTEROL 31.0 mg/dL (9-159); SGPT/ALT 11.0 U/L (5-49)
== END | disposition home or self-care (01) ==
LOC: LAB 07:46
PROVIDERS: ATTEND Internal Medicine Endocrinology, Diabetes & Metabolism
DX: E13.65 Other specified diabetes mellitus with hyperglycemia (principal)